=== PATIENT | female | born 1955 | race Caucasian/White ===

== ENCOUNTER 2016-07-22 04:15 | Inpatient (IN) ==
[2016-07-21 11:44] LABS: HEMATOCRIT 36.7 % (37.0-47.0); HEMOGLOBIN 11.6 g/dL (12.0-16.0); MCH 24.6 PG (27-31); MCHC 31.6 g/dL (33-37); MCV 77.9 FL (81-99); MPV 11.1 FL (7.4-10.4); RBC 4.71 XMIL (4.2-5.4)
--- NOTE | 2016-07-21 12:27 | EKG Report ---
Test Performed on : 07/21/2016 11:04:58 AM Test Reason : PAT Blood Pressure : / mmHG Vent. Rate : 061 BPM Atrial Rate : 061 BPM P-R Int : 168 ms QRS Dur : 096 ms QT Int : 418 ms P-R-T Axes : 054 052 -55 degrees QTc Int : 420 ms Normal sinus rhythm. Cannot rule out Inferior infarct (cited on or before 29-JUN-2013) Abnormal ECG When compared with ECG of 29-JUN-2013 14:59, T wave inversion now evident in Inferior leads Confirmed by Quan Alejandre MD ([id number]) on 07/22/2016 7:57:41 AM
[2016-07-21 12:28] LABS: AGAP 13; BUN 11 mg/dL (8-22); CALCIUM 10.1 mg/dL (8.8-10.2); CHLORIDE 101 mmol/L (98-107); COSMO 284; POTASSIUM 5.3 mmol/L (3.5-5.1); SODIUM 142 mmol/L (136-145); TCO2 28 mmol/L (25-35)
[2016-07-22] MEDS ORDERED: INVANZ 1 GM/NS 1 GM/50 ML IVPB ONE (05:33)
[2016-07-22] MEDS ORDERED: LR 1,000 ML ONE (05:34)
[2016-07-22] MEDS ORDERED: ENTEREG ONE (05:39)
[2016-07-22] MEDS ORDERED: SODIUM CHLORIDE 0.9% 10 ML ONE (07:04)
[2016-07-22] MEDS ORDERED: MARCAINE 0.25% PF ONE (07:04)
[2016-07-22] MEDS ORDERED: EXPAREL 1.3% ONE (07:05)
[2016-07-22 07:59] LABS: URINE MICRO REVIEW NEEDED? NO; URINE SOURCE CATH
[2016-07-22 08:05] LABS: BILIRUBIN URINE NEGATIVE (NEGATIVE); BLOOD URINE NEGATIVE (NEGATIVE); COLOR YELLOW; GLUCOSE URINE NEGATIVE (NEGATIVE); LEUKOCYTES URINE NEGATIVE (NEGATIVE); NITRITE URINE NEGATIVE (NEGATIVE); PROTEIN URINE NEGATIVE (NEGATIVE); SP GRAVITY URINE 1.007; TURBIDITY URINE CLEAR (CLEAR); UROBILINOGEN URINE NORMAL (NORMAL)
[2016-07-22 08:06] LABS: UR EPITHELIAL CELLS <10 /HPF (<10); URINE BACTERIA NEGATIVE /HPF; URINE WBC <10 /HPF (<10)
[2016-07-22] MEDS ORDERED: NS 1,000 ML ONE (10:36)
[2016-07-22] MEDS ORDERED: FENTANYL ONE (10:40)
[2016-07-22] MEDS ORDERED: VERSED ONE (10:40)
[2016-07-22] MEDS ORDERED: DIPRIVAN 1% ONE (10:40)
--- NOTE | 2016-07-22 10:51 | OPERATIVE NOTE ---
PROCEDURE DATE: 07/22/2016 DATE OF SURGERY: 07/22/2016. PROCEDURE: Total abdominal colectomy with ileal rectostomy. Intraoperative proctoscopy SURGEON: Dr. Vikas Marr. 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 POSTOPERATIVE DIAGNOSIS: Cancer of the ascending colon and cancer of the rectum (synchronous cancers). DESCRIPTION OF PROCEDURE: Satisfactory general endotracheal anesthesia was achieved. The patient was placed in Triston stirrups. The abdomen is prepped and draped in a sterile fashion. We made an incision from the mid epigastrium to the pubis in the midline. We carried our incision through the subcutaneous tissue through the midline fascia, entering the abdominal cavity carefully. Upon palpation, the lesion in the ascending colon was obvious. There was ink staining and it was palpable and there was palpable adenopathy. The lesion in the rectum could not be palpated. We started on the ascending colon and incised the white line of Toldt. We went from caudad to craniad along the right gutter and mobilized the hepatic flexure. We then went to the sigmoid and again incised the white line of Toldt on the left pelvic wall, and came from caudad to craniad. We then mobilized the splenic flexure. We proceeded to divide the omentum with LigaSure. We then began incising the mesentery from the right to the left. The ileal colic vessels were clamped, divided and suture ligated. We went to use the LigaSure in the mesentery all the way to the middle colic, then clamped and divided it, suture ligating it with a 2-0 silk suture ligature. We then continued into the mesentery using the LigaSure to the left colic and used the LigaSure on it and came all the way to the pelvis. The sigmoid vessels were clamped, divided and suture ligated. I then chose a convenient place about the level of the peritoneal reflection and probably about 10 cm in length. We stapled off the rectum and handed off the specimen. We looked at the distal colon and did not see a lesion there. So, I decided to do an intraoperative proctoscopy, and scoped the patient from below and, in fact, found the lesion at about 4-5 cm anteriorly. I scrubbed back in, grasped the staple line with Allis, and then divided the mesentery and the attachments to the rectum laterally and posteriorly and anteriorly. We used a [place] retractor to help expose as we dissected distally behind the vagina. We went down really as far as we could go to about 2 cm right to the pelvic floor. Here, we used a TA 60 blue cartridge stapled off the rectum at that point, and the rectum was handed off. I inspected it and the lesion was in fact in that specimen. We chose a 31 anvil because of the size of the rectum. I removed the staple line of the ileum. Used a spike on the anvil and placed it inside the ileum and brought it out the antimesenteric wall using the spike. I then stapled off the distal end of the ileum again, inverted that staple line with 3-0 silks. So, the anvil came out the antimesenteric wall of the ileum. The stapler was then introduced into the rectum and brought to the staple line. Obviously it was not very far in because it was right at about 2-3 cm. It apposed the staple line well. We extended the spike and then attached the anvil to the spike and then approximated these 2 portions of the stapler until the green was noted in the window. I then stapled the bowel together doing an ileal rectostomy. The staple was removed and there were 2 complete rings present. I changed gloves once again. We then checked the staple line. There were leaks on both sides, but they were coming from the staple line of the rectum and not from the anastomosis itself. We were able to place 3-0 silks in a Lembert fashion on each side in order to achieve complete air-tight anastomosis. We tested it underwater and there was absolutely no bubbling after the stitches were placed laterally on the staple line of the rectum. We were satisfied with our anastomosis. We then closed the mesentery to the sidewall of the pelvis with 3- 0 silks in a Lembert fashion. This prevented any bowel from getting down into the pelvis. We then placed a Michael drain into the pelvis bringing it out the right lower quadrant and placing it down posterior to the ileal rectostomy. Hemostasis was satisfactory. We then closed the peritoneum with a 2-0 chromic. We closed the fascia with a running #2 Prolene and irrigated out the subcutaneous tissue. We then closed the skin with genny. A sterile dressing was applied. She tolerated it well and was sent to the recovery room in satisfactory condition. cc: MD Ray Sheikh MD MTDD
[2016-07-22] MEDS ORDERED: SODIUM CHLORIDE 0.9% 30 ML ONE (10:56)
[2016-07-22] MEDS ORDERED: PHENERGAN ONE (10:56)
[2016-07-22] MEDS ORDERED: ZOFRAN ONE (10:56)
[2016-07-22] MEDS ORDERED: NEOSTIGMINE ONE (10:56)
[2016-07-22] MEDS ORDERED: EPHEDRINE ONE (10:57)
[2016-07-22] MEDS ORDERED: ROBINUL ONE (10:57)
[2016-07-22] MEDS ORDERED: NORCURON ONE (10:57)
[2016-07-22] MEDS ORDERED: LR 3,000 ML ONE (10:58)
[2016-07-22] MEDS ORDERED: XYLOCAINE-MPF 2% ONE (10:58)
[2016-07-22] MEDS: OFIRMEV 1000 MG/ISOTONIC SOLN 1,000 MG/100 ML BOTTLE IV SCH ×2 (14:09→17:37)
[2016-07-22] MEDS: DILAUDID IV PRN ×3 (14:26→22:56)
[2016-07-22] MEDS: ZOFRAN IV PRN (19:12)
[2016-07-22] MEDS: NS 1,000 ML IV SCH ×2 (21:39→21:41)
[2016-07-22] MEDS: PERIDEX MT SCH (22:56)
[2016-07-22] MEDS: LOVENOX SUBQ SCH (22:56)
[2016-07-22] MEDS: PRAVACHOL PO SCH (22:56)
[2016-07-22] MEDS: PRINIVIL PO SCH (22:56)
[2016-07-22] MEDS: LYRICA PO SCH (22:57)
[2016-07-23] MEDS: OFIRMEV 1000 MG/ISOTONIC SOLN 1,000 MG/100 ML BOTTLE IV SCH ×5 (00:24→17:55)
[2016-07-23] MEDS: DILAUDID IV PRN ×6 (03:10→22:15)
[2016-07-23] MEDS: ZOFRAN IV PRN (03:10)
[2016-07-23] MEDS: NS 1,000 ML IV SCH ×3 (05:09→22:13)
[2016-07-23 05:25] LABS: HEMATOCRIT 30.1 % (37.0-47.0); HEMOGLOBIN 9.3 g/dL (12.0-16.0); MCH 24.4 PG (27-31); MCHC 30.9 g/dL (33-37); MPV 10.9 FL (7.4-10.4); RBC 3.81 XMIL (4.2-5.4)
[2016-07-23 05:42] LABS: AGAP 12; BUN 7 mg/dL (8-22); CALCIUM 8.5 mg/dL (8.8-10.2); CHLORIDE 101 mmol/L (98-107); COSMO 277; SODIUM 139 mmol/L (136-145); TCO2 26 mmol/L (25-35)
[2016-07-23] MEDS: ISMO PO SCH (09:12)
[2016-07-23] MEDS: CELEXA PO SCH (09:13)
[2016-07-23] MEDS: NEXIUM PO SCH (09:13)
[2016-07-23] MEDS: GLUCOPHAGE PO SCH (09:13)
[2016-07-23] MEDS: ENTEREG PO SCH ×2 (09:13→22:14)
[2016-07-23] MEDS: PERIDEX MT SCH ×2 (09:14→22:14)
[2016-07-23] MEDS: PRINIVIL PO SCH ×2 (09:14→22:14)
[2016-07-23] MEDS: CARDIZEM CD PO SCH (09:14)
[2016-07-23] MEDS: LYRICA PO SCH ×2 (09:41→22:15)
[2016-07-23] MEDS: VALIUM PO SCH (09:41)
[2016-07-23] MEDS: LOVENOX SUBQ SCH (22:14)
[2016-07-23] MEDS: PRAVACHOL PO SCH (22:14)
[2016-07-24] MEDS: OFIRMEV 1000 MG/ISOTONIC SOLN 1,000 MG/100 ML BOTTLE IV SCH ×5 (00:49→19:31)
[2016-07-24] MEDS: DILAUDID IV PRN ×7 (05:15→23:09)
[2016-07-24 05:19] LABS: MANUAL DIFF NEEDED? NO
[2016-07-24 05:29] LABS: BASO% 0.4 % (0.0-0.8); EOS# 0.12 X1000 (0.0-0.7); HEMATOCRIT 29.8 % (37.0-47.0); HEMOGLOBIN 9.2 g/dL (12.0-16.0); IMM GRAN# 0.02 X1000 (0.0-0.04); IMM GRAN% 0.2 % (0.0-0.5); LYMPH% 28.6 % (20.5-51.1); MCH 24.3 PG (27-31); MCHC 30.9 g/dL (33-37); MCV 78.6 FL (81-99); MONO# 0.87 X1000 (0.11-0.59); MONO% 7.5 % (1.7-9.3); MPV 11.4 FL (7.4-10.4); NEUT% 62.3 % (42.2-75.2); PLT 210 X1000 (130-400); RBC 3.79 XMIL (4.2-5.4)
[2016-07-24 05:50] LABS: AGAP 14; BUN 5 mg/dL (8-22); CALCIUM 9.1 mg/dL (8.8-10.2); CHLORIDE 100 mmol/L (98-107); COSMO 274; POTASSIUM 3.5 mmol/L (3.5-5.1); SODIUM 139 mmol/L (136-145); TCO2 25 mmol/L (25-35)
[2016-07-24] MEDS: NS 1,000 ML IV SCH (08:48)
[2016-07-24] MEDS: PRINIVIL PO SCH ×2 (08:49→23:10)
[2016-07-24] MEDS: ISMO PO SCH (08:49)
[2016-07-24] MEDS: NEXIUM PO SCH (08:49)
[2016-07-24] MEDS: PERIDEX MT SCH ×2 (08:49→23:11)
[2016-07-24] MEDS: LYRICA PO SCH ×2 (08:50→23:11)
[2016-07-24] MEDS: CELEXA PO SCH (08:50)
[2016-07-24] MEDS: CARDIZEM CD PO SCH (08:51)
[2016-07-24] MEDS: GLUCOPHAGE PO SCH (08:51)
[2016-07-24] MEDS: VALIUM PO SCH (08:51)
[2016-07-24] MEDS: ENTEREG PO SCH ×2 (08:51→23:10)
[2016-07-24] MEDS: ZOFRAN IV PRN (23:09)
[2016-07-24] MEDS: LOVENOX SUBQ SCH (23:09)
[2016-07-24] MEDS: PRAVACHOL PO SCH (23:10)
[2016-07-25] MEDS: OFIRMEV 1000 MG/ISOTONIC SOLN 1,000 MG/100 ML BOTTLE IV SCH ×4 (01:19→18:50)
[2016-07-25] MEDS: NS 1,000 ML IV SCH ×2 (02:57→22:23)
[2016-07-25] MEDS: DILAUDID IV PRN ×5 (04:25→20:19)
[2016-07-25] MEDS: ZOFRAN IV PRN ×2 (04:25→12:07)
[2016-07-25 05:30] LABS: MANUAL DIFF NEEDED? NO
[2016-07-25 05:35] LABS: BASO% 0.3 % (0.0-0.8); EOS# 0.07 X1000 (0.0-0.7); EOS% 0.6 % (0.0-10.0); HEMATOCRIT 30.8 % (37.0-47.0); HEMOGLOBIN 9.7 g/dL (12.0-16.0); IMM GRAN# 0.04 X1000 (0.0-0.04); IMM GRAN% 0.3 % (0.0-0.5); LYMPH# 1.95 X1000 (1.2-3.4); LYMPH% 16.3 % (20.5-51.1); MCH 24.5 PG (27-31); MCHC 31.5 g/dL (33-37); MCV 77.8 FL (81-99); MONO# 0.87 X1000 (0.11-0.59); MONO% 7.3 % (1.7-9.3); MPV 10.7 FL (7.4-10.4); NEUT% 75.2 % (42.2-75.2); PLT 215 X1000 (130-400); RBC 3.96 XMIL (4.2-5.4)
--- NOTE | 2016-07-25 08:32 | PROGRESS NOTE ---
DATE: 07/25/2016 SUBJECTIVE: Ms. Valerie Whitney is postoperative day 3 from a total abdominal colectomy per Dr. Marr for synchronous colon cancers. This morning she is awake, cooperative. Her abdomen is soft. She has had liquid bowel movements. She is incontinent. OBJECTIVE: Vital Signs: Her heart rate is 80, blood pressure 127/63, and O2 saturation 95%. Her urine output is adequate. Abdomen: She does have a SINGH drain in, which is draining serosanguineous fluid. Her midline wound is dressed. DIAGNOSTIC DATA: Her white blood cell count is 12. She is not on antibiotics. Her hematocrit is 31%. Serum glucoses are within normal limits. PLAN: Continue her clear liquid diet. Increase her activity. Her pain is well controlled. Leave her Michael drain for now. cc: MD Vikas Ortega MD
[2016-07-25] MEDS: CELEXA PO SCH (08:39)
[2016-07-25] MEDS: ENTEREG PO SCH ×2 (08:39→20:18)
[2016-07-25] MEDS: NEXIUM PO SCH (08:40)
[2016-07-25] MEDS: LYRICA PO SCH ×2 (08:40→20:18)
[2016-07-25] MEDS: GLUCOPHAGE PO SCH (08:40)
[2016-07-25] MEDS: PRINIVIL PO SCH ×2 (08:40→20:19)
[2016-07-25] MEDS: VALIUM PO SCH (08:40)
[2016-07-25] MEDS: ISMO PO SCH (08:40)
[2016-07-25] MEDS: CARDIZEM CD PO SCH (08:41)
[2016-07-25] MEDS: PERIDEX MT SCH ×2 (08:43→20:28)
[2016-07-25] MEDS: ULTRAM PO PRN ×2 (12:07→22:24)
[2016-07-25] MEDS: LOVENOX SUBQ SCH (20:18)
[2016-07-25] MEDS: PRAVACHOL PO SCH (20:18)
[2016-07-26] MEDS: OFIRMEV 1000 MG/ISOTONIC SOLN 1,000 MG/100 ML BOTTLE IV SCH ×5 (00:25→23:31)
[2016-07-26] MEDS: NS 1,000 ML IV SCH ×3 (02:18→16:15)
[2016-07-26] MEDS: ZOFRAN IV PRN ×2 (05:26→12:35)
[2016-07-26] MEDS: DILAUDID IV PRN ×5 (05:26→23:31)
[2016-07-26] MEDS: CELEXA PO SCH (08:00)
[2016-07-26] MEDS: ISMO PO SCH (08:00)
[2016-07-26] MEDS: CARDIZEM CD PO SCH (08:00)
[2016-07-26] MEDS: LYRICA PO SCH ×3 (08:00→21:31)
[2016-07-26] MEDS: ENTEREG PO SCH ×3 (08:00→21:30)
[2016-07-26] MEDS: PERIDEX MT SCH ×3 (08:01→21:31)
[2016-07-26] MEDS: PRINIVIL PO SCH ×2 (08:01→21:30)
[2016-07-26] MEDS: VALIUM PO SCH (08:01)
[2016-07-26] MEDS: NEXIUM PO SCH (08:01)
[2016-07-26] MEDS: GLUCOPHAGE PO SCH (08:01)
[2016-07-26] MEDS: ULTRAM PO PRN ×2 (08:21→14:48)
[2016-07-26] MEDS: PRAVACHOL PO SCH ×2 (19:30→21:30)
[2016-07-26] MEDS: LOVENOX SUBQ SCH ×2 (19:31→21:31)
[2016-07-27] MEDS: NS 1,000 ML IV SCH ×2 (01:34→10:24)
[2016-07-27] MEDS: OFIRMEV 1000 MG/ISOTONIC SOLN 1,000 MG/100 ML BOTTLE IV SCH ×4 (05:52→23:47)
[2016-07-27] MEDS: DILAUDID IV PRN ×3 (06:00→21:10)
[2016-07-27] MEDS: ENTEREG PO SCH ×2 (07:49→10:23)
[2016-07-27] MEDS: GLUCOPHAGE PO SCH (07:49)
[2016-07-27] MEDS: ISMO PO SCH ×2 (07:50→10:23)
[2016-07-27] MEDS: PERIDEX MT SCH ×3 (07:50→21:11)
[2016-07-27] MEDS: LYRICA PO SCH ×3 (07:50→21:11)
[2016-07-27] MEDS: NEXIUM PO SCH ×2 (07:50→10:22)
[2016-07-27] MEDS: VALIUM PO SCH ×2 (07:50→10:22)
[2016-07-27] MEDS: CARDIZEM CD PO SCH ×2 (07:51→10:22)
[2016-07-27] MEDS: CELEXA PO SCH ×2 (07:51→10:23)
[2016-07-27] MEDS: PRINIVIL PO SCH ×3 (07:51→23:42)
[2016-07-27] MEDS: ULTRAM PO PRN ×3 (10:24→23:49)
[2016-07-27] MEDS ORDERED: NS 1,000 ML IV SCH (11:22)
--- NOTE | 2016-07-27 12:32 | Diag Imaging Result Doc PS360 ---
EXAM: FLAT/UPRIGHT ABD/1 VIEW CHEST HISTORY: post colon resection TECHNIQUE: Three views COMPARISON: 09/25/2014 FINDINGS: The lungs are well expanded. No cardiomegaly. No pneumonia. No free air beneath the diaphragm. There are multiple midline skin genny. There is a drain overlying the pelvis and there are sutures in the pelvis. There are multiple air distended loops of small bowel air-fluid levels. No organomegaly. IMPRESSION: Ileus versus obstruction. Follow-up films recommended. Electronically signed by Roly Childers 07/27/2016 12:30 PM
[2016-07-27] MEDS: ZOFRAN IV PRN (16:27)
[2016-07-27] MEDS: PRAVACHOL PO SCH (21:11)
[2016-07-27] MEDS: LOVENOX SUBQ SCH (21:11)
[2016-07-28] MEDS: DILAUDID IV PRN (01:55)
[2016-07-28 05:24] LABS: MANUAL DIFF NEEDED? NO
[2016-07-28] MEDS: OFIRMEV 1000 MG/ISOTONIC SOLN 1,000 MG/100 ML BOTTLE IV SCH (05:28)
[2016-07-28 05:31] LABS: BASO% 0.3 % (0.0-0.8); EOS# 0.17 X1000 (0.0-0.7); EOS% 2.2 % (0.0-10.0); HEMATOCRIT 28.5 % (37.0-47.0); HEMOGLOBIN 9.1 g/dL (12.0-16.0); LYMPH# 1.97 X1000 (1.2-3.4); LYMPH% 25.9 % (20.5-51.1); MCH 24.6 PG (27-31); MCHC 31.9 g/dL (33-37); MONO# 1.08 X1000 (0.11-0.59); MONO% 14.2 % (1.7-9.3); MPV 10.8 FL (7.4-10.4); NEUT% 57.4 % (42.2-75.2); PLT 248 X1000 (130-400)
[2016-07-28 07:51] VITALS: BP 123/60
[2016-07-28] MEDS: CARDIZEM CD PO SCH (08:36)
[2016-07-28] MEDS: PERIDEX MT SCH (08:36)
[2016-07-28] MEDS: CELEXA PO SCH (08:37)
[2016-07-28] MEDS: LYRICA PO SCH (08:37)
[2016-07-28] MEDS: ISMO PO SCH (08:37)
[2016-07-28] MEDS: VALIUM PO SCH (08:37)
[2016-07-28] MEDS: NEXIUM PO SCH (08:37)
[2016-07-28] MEDS: PRINIVIL PO SCH (08:37)
[2016-07-28] MEDS: GLUCOPHAGE PO SCH (08:37)
[2016-07-28] MEDS: ULTRAM PO PRN (08:45)
--- NOTE | 2016-08-03 13:19 | DISCHARGE SUMMARY ---
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 PRIMARY PROCEDURE: Total abdominal colectomy with an ileorectostomy. HOSPITAL COURSE: This 60-year-old was sent by Dr. Soto, with synchronous cancers in her colon. We discussed her options for treatment. She was admitted on the after an outpatient prep. She underwent the surgery noted on 07/22/2016. Postoperatively she did quite well. We started her on clear liquids on the 2nd postop day. We removed her Schwartz. We advanced her diet subsequently. We removed her drain on the 6th postoperative day. It was felt she could be discharged home on that day. Her temp was 99.2 degrees. She was taking solid food. Her bowels were loose as expected. Her wound was fine. She will return to the office in 1 week for re-evaluation. The pathology revealed the cecal cancer to be extending through the muscularis into the surrounding tissue. There were 8 of 27 nodes positive so this made it a T3 N2. The rectal lesion was 1.1 cm extended into the muscle but not through into the subcutaneous tissue. One lymph node out of 5 was positive so it was a T2 N1. She will need subsequent therapy. DISPOSITION: That she was discharged in good condition to return to the office in a week. cc: MD Ray Sheikh MD
== END 2016-07-28 10:35 | disposition home or self-care (01) ==
LOC: SURHOLD 04:15 → 4N 12:16
PROVIDERS: ADMIT Surgery; ATTEND Surgery

== ENCOUNTER 2016-08-05 14:59 | Inpatient (IN) ==
[2016-08-05] MEDS ORDERED: NS 1,000 ML IV ONE (15:22)
[2016-08-05] MEDS ORDERED: ZOFRAN IV ONE (15:22)
[2016-08-05] MEDS ORDERED: MORPHINE IV ONE (15:47)
[2016-08-05 16:23] LABS: MANUAL DIFF NEEDED? NO
[2016-08-05 16:29] LABS: URINE MICRO REVIEW NEEDED? NO; URINE SOURCE CLEAN CATCH
[2016-08-05 16:39] LABS: BASO% 0.4 % (0.0-0.8); EOS# 0.44 X1000 (0.0-0.7); EOS% 4.1 % (0.0-10.0); HEMATOCRIT 28.7 % (37.0-47.0); HEMOGLOBIN 8.9 g/dL (12.0-16.0); IMM GRAN# 0.06 X1000 (0.0-0.04); IMM GRAN% 0.6 % (0.0-0.5); LYMPH# 2.68 X1000 (1.2-3.4); LYMPH% 25.3 % (20.5-51.1); MCH 23.9 PG (27-31); MCV 77.2 FL (81-99); MONO# 1.19 X1000 (0.11-0.59); MONO% 11.2 % (1.7-9.3); MPV 10.2 FL (7.4-10.4); NEUT% 58.4 % (42.2-75.2); PLT 478 X1000 (130-400); RBC 3.72 XMIL (4.2-5.4)
[2016-08-05 16:40] LABS: UR EPITHELIAL CELLS >10 /HPF (<10); URINE BACTERIA 2+ /HPF; URINE RBC <10 /HPF (<10); URINE WBC <10 /HPF (<10)
[2016-08-05 16:48] LABS: BILIRUBIN URINE SMALL (NEGATIVE); BLOOD URINE NEGATIVE (NEGATIVE); COLOR YELLOW; GLUCOSE URINE NEGATIVE (NEGATIVE); LEUKOCYTES URINE TRACE (NEGATIVE); NITRITE URINE NEGATIVE (NEGATIVE); PH URINE 5.5; PROTEIN URINE 30 mg/dL (NEGATIVE); SP GRAVITY URINE 1.023; TURBIDITY URINE HAZY (CLEAR); URINE CULTURE NEEDED? YES; UROBILINOGEN URINE 3 mg/dL (NORMAL)
--- NOTE | 2016-08-05 16:53 | Diag Imaging Result Doc PS360 ---
EXAM: CT ABD/PELVIS ORAL CONTR ONLY HISTORY: Abd pain, post op TECHNIQUE: COMPARISON: 06/29/2016 FINDINGS: Normal spleen and adrenal glands. Normal noncontrasted pancreas and liver. The gallbladder is contracted. Moderate atherosclerosis. No aneurysmal dilatation to the aorta. No renal stones. No hydronephrosis. Mildly distended bowel loops. No free air. No abscess. The urinary bladder is only mildly distended. There is free fluid in the pelvis. The uterus is been removed. IMPRESSION: Findings likely represent an ileus although there could be a partial obstruction or even enteritis. No abscess or free air. Electronically signed by Roly Childers 08/05/2016 4:50 PM
[2016-08-05 16:59] LABS: ALBUMIN 3.4 g/dL (3.5-5.0); CALCIUM 9.4 mg/dL (8.8-10.2); POTASSIUM 4.1 mmol/L (3.5-5.1); TOTAL BILIRUBIN 0.17 mg/dL (0.20-1.00); TOTAL PROTEIN 6.5 g/dL (6.3-8.3)
[2016-08-05] MEDS ORDERED: MAGNESIUM SULFATE 2 GM/S.W.I. 2 GM/50 ML IVPB IV ONE (17:04)
--- NOTE | 2016-08-05 17:22 | PROVIDER DOCUMENTATION ---
This chart was entered by Erlinda Salazar Scribe, acting as scribe for Jarod Loza MD. HPI-General Adult - General Chief Complaint: Abnormal Lab[s] Stated Complaint: SENT BY DR ARMENTA FOR FLUIDS Time Seen by Provider: 08/05/16 15:21 Source: patient Allergies/Adverse Reactions: Patient Allergies Allergy/AdvReac Type Severity Reaction Status Date / Time Sulfa (Sulfonamide Allergy Mild HIVES Verified 07/21/16 10:30 Antibiotics) azithromycin Allergy SYNCOPE Verified 07/21/16 10:30 [From Zithromax Z-Noel] cetirizine HCl * Allergy SYNCOPE Verified 07/21/16 10:30 [From Zyrtec] fluticasone propionate * Allergy SYNCOPE Verified 07/21/16 10:30 [From Flonase] codeine AdvReac Mild NAUSEA Verified 07/21/16 10:30 steroids Allergy Unknown Uncoded 07/21/16 10:30 Home Medications: Home Medication List Medication Instructions Recorded Confirmed Last Taken Type LISINOpril [Prinivil] 20 mg PO BID 11/22/12 07/22/16 07/21/16 08:00 History Metformin [Glucophage] 500 mg PO WBREAKFAST 11/22/12 07/22/16 07/08/16 History Isosorbide Mononitrate [Ismo] 30 mg PO DAILY 06/29/13 07/22/16 07/08/16 History PRAVAstatin [Pravachol] 20 mg PO QHS 06/29/13 07/22/16 07/08/16 History Prasugrel [Effient] 10 mg PO DAILY 06/29/13 07/21/16 06/30/16 History Pregabalin [Lyrica] 150 mg PO BID 06/29/13 07/22/16 07/21/16 08:00 History Esomeprazole [Nexium] 40 mg PO DAILY 08/24/13 07/22/16 07/22/16 04:00 History Citalopram [Celexa] 40 mg PO DAILY 06/21/16 07/22/16 07/22/16 04:00 History Diazepam 5 mg PO DAILY 06/21/16 07/22/16 07/22/16 04:00 History Diltiazem HCl [Cartia Xt] 180 mg PO DAILY 06/21/16 07/22/1607/21/17 08:00 History Promethazine [Phenergan] 25 mg PO Q6H PRN PRN 06/21/16 07/22/16 07/21/16 22:00 History Hydrocodone/Acetaminophen [[place] 1 each PO PRN PRN #14 tablet 07/28/16 Unknown Rx 10-325 Tablet] - History of Present Illness -Gen Adult Nature of Presenting Problems: 60 yo F presents to the ER by Dr. Armenta for abnormal kidney function labs, diarrhea, and increase abdominal pain. Pt had a complete colon resection x15 days ago. States yesterday she had an xray done which showed an obstruction, was scheduled for CT on Monday but daughter is requesting it to be done today since they are already here. States she had stage 3 colon cancer on both sides of colon and rectum, also in 8 lymph nodes. Denies any rectal bleeding. Associated Symptoms: reports: diarrhea. denies: chest pain, fatigue, nausea, vomiting Review of Systems - Adult - REVIEW OF SYSTEMS - ADULT Constitutional: denies: chills, fever Eyes: reports: no symptoms reported Ears, Nose, Mouth & Throat: reports: no symptoms reported Cardiovascular: denies: chest pain, palpitations Respiratory: denies: cough, shortness of breath Gastrointestinal: reports: diarrhea. denies: abdominal pain, nausea, rectal bleeding, vomiting Genitourinary: denies: dysuria, flank pain Musculoskeletal: reports: no symptoms reported Integumentary: reports: no symptoms reported Neurological: reports: no symptoms reported Psychiatric: reports: no symptoms reported Endocrine: reports: no symptoms reported Hematologic/Lymphatic: reports: no symptoms reported Allergic/Immunologic: reports: no symptoms reported All Other Systems: Reviewed and Negative Past History - Adult - PAST MEDICAL HISTORY-ADULT Review of Records: reports: Nursing Assessment Review, Medications Reviewed Cardiovascular: reports: cardiac disease, CAD, HTN Respiratory: reports: COPD Gastrointestinal: reports: cancer Neurological: reports: other (hx of syncope) Endocrine/Immune: reports: Diabetes - PRIOR SURGERIES/PROCEDURES Surgical/Procedure History: reports: recent surgery (colon resection), colonoscopy, cardiac stent, other (total colon resection) - IMMUNIZATION STATUS Childhood Immunizations: See Nurse Assessment Flu Vaccine: See Nurse Assessment Physical Exam-General - PHYSICAL EXAM-ADULT Initial Vital Signs Reviewed: Yes - CONSTITUTIONAL General Appearance: alert, no apparent distress - EYES Eyes: PERRL/EOMI, pink conjunctivae - HEAD, EARS, NOSE, MOUTH & THROAT HENMT: normocephalic/atraumatic, normal ENT inspection - NECK Neck: supple, normal inspection - RESPIRATORY Respiratory: no respiratory distress, no accessory muscle use - CARDIOVASCULAR Cardiovascular: normal peripheral pulses, regular rate, rhythm - GASTROINTESTINAL (ABDOMEN) Abdominal Exam: normal bowel sounds, soft, tenderness (generalized), other ( surgical scar from exploratory abdominal surgery, no signs of infection, healing well) - MUSCULOSKELETAL Back Exam: no CVA tenderness, no vertebral tenderness Extremity: normal gait, normal inspection - SKIN Integumentary: normal color, warm/dry - NEUROLOGIC Neurologic: grossly normal, no motor/sensory deficits - PSYCHIATRIC Psych/Mental Status: normal mood/affect, normal thought content, normal thought process, oriented x 3 Progress - PLAN OF CARE/RESULTS Progress/Plan/Lab Results: Vital Signs - 8 hr 08/05/16 15:11 Temperature 98.6 F Pulse Rate 96 H Respiratory Rate 18 Blood Pressure 94/51 O2 Sat by Pulse Oximetry 99 Orders Category Date Time Status Saline Loc DIRECTED Care 08/05/16 15:22 Active NPO Diet 08/05/16 15:22 Active AMYLASE [CHEM] Stat Lab 08/05/16 15:22 Uncollected CBC WITH ELECTRONIC DIFF [HEME] Stat Lab 08/05/16 15:22 Uncollected COMPREHENSIVE METABOLIC PANEL [CHEM] Stat Lab 08/05/16 15:22 Uncollected LIPASE [CHEM] Stat Lab 08/05/16 15:22 Uncollected MAGNESIUM [CHEM] Stat Lab 08/05/16 15:22 Uncollected URINALYSIS W/POSS RFLX CULT-1 [URINALYSIS] Stat Lab 08/05/16 15:22 Uncollected 0.9% Sodium Chloride Inj [Ns] 1,000 ml Med 08/05/16 15:22 Active IV 999 mls/hr Ondansetron [Zofran] Med 08/05/16 15:22 Discontinued 4 mg IV NOW ONE Result Diagrams: 08/05/16 15:35 08/05/16 15:35 - CT/MRI 1 CT Study: Abdomen, Pelvis Impression: Abnormal (findings likely represents an ileus although there could be a partial obstruction or even enteritis, no abscess or free air. Per radiologist) - CONSULTS/PCP/HOSPITALIST Notification #1 *Consult/PCP/Hospitalist*: Hospitalist Time Discussed: 17:21 Consult Disposition: Admit Departure - Departure Date of Disposition Decision: 08/05/16 Time of Disposition Decision: 17:21 DIAGNOSIS: Partial small bowel obstruction, Hypomagnesemia, Renal insufficiency Disposition: ADMITTED INPATIENT Certified Medical Emergency: Emergent Condition: Stable Referrals and Follow-Ups: Marian Ziegler CRNP [Primary Care Provider] - - Critical Care Note This patient required my direct & personal management of CC.: No This chart was documented by the indicated scribe, (Erlinda Salazar Scribe) and accurately reflects the services I performed and decisions made by me, Jarod Loza MD, as attested by the provider's signature.
[2016-08-05] MEDS ORDERED: ZOFRAN IV PRN (19:35)
[2016-08-05] MEDS ORDERED: APRESOLINE IV PRN (19:35)
[2016-08-05] MEDS: DILAUDID IV PRN ×2 (20:14→23:21)
--- NOTE | 2016-08-05 20:20 | HISTORY AND PHYSICAL ---
PRIMARY CARE PROVIDER: URI Pearl. PRIMARY ONCOLOGIST: Aroldo Alford MD. RECENT SURGEON: Vikas Marr MD. CHIEF COMPLAINT: Abdominal pain with diarrhea. HISTORY OF PRESENT ILLNESS: Ms. Valerie Whitney is a 60-year-old female with a medical history of recent diagnosis of colonic adenocarcinoma with positive lymph nodes, who recently had a total abdominal colectomy with ileorectostomy by Dr. Marr on 07/22/2016. She states that she has had diarrhea ever since and that she has had nausea for years. Over the last 4 days she has had decreased appetite with increasing abdominal pain and rectal pain. She had a follow-up appointment with Dr. Marr yesterday evening and had her brittni removed. Given her symptoms he suspected small-bowel obstruction and ordered her to have an abdominal CT that was scheduled for Monday. Today she had an appointment with Dr. Alford who found her creatinine to be elevated and sent her here for IV fluids. When evaluated by the ER physician it was noted that she was going to have a CT on Monday for possible small bowel obstruction. So she went ahead and went for her CT. Results revealed ileus versus partial small-bowel obstruction versus enteritis. There is no abscess or free air. Her white count is normal at 10,000. She does have a low hemoglobin and hematocrit. BUN and creatinine of 25 and 2.0. She has a normal baseline of anywhere from 0.6-0.8 creatinine over the last 3 years. Given her frequent spells of diarrhea she has also had a lobe magnesium level of 1.0 for which she received magnesium supplementation via IV. Her potassium is stable. She will receive IV fluid, hydration to help improve her kidney function and secondary to being NPO due to possible partial small-bowel obstruction. We will consult General Surgery to evaluate and will consult Dr. Alford to follow. PAST MEDICAL HISTORY: Hypomagnesemia, asthma, COPD, no home oxygen. RECENT DIAGNOSIS: 1. 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 2. Diabetes mellitus type 2. 3. Hypertension. 4. Fibromyalgia. 5. Hyperlipidemia, 6. Coronary artery disease. 7. Congestive heart failure per her report but the last echocardiogram in 2013 shows a normal LV systolic function with an ejection fraction of 65-70 and a normal diastolic function. PAST SURGICAL HISTORY: Total abdominal colectomy with ileorectostomy on 07/22/2016. She had a colonoscopy on 06/23/2016 which was when she was diagnosed with the colonic adenocarcinoma. Hysterectomy, right foot surgery, vocal cord biopsy, cardiac stents x2 in 2012. SOCIAL HISTORY: She only smoked 2-3 cigarettes per day up until a couple of months ago. It used to be 2 packs per day that started at the age of 18 or 19 years old. Denies alcohol or illicit drug use. FAMILY HISTORY: Grandmother with diabetes. Father with breast cancer. Mother had congestive heart failure. Sister had lung cancer. Son has kidney issues, actually has 1 kidney. REVIEW OF SYSTEMS: A 14 point review of systems were complete and all were negative except those mentioned above in HPI. ALLERGIES: Sulfa antibiotics, azithromycin, Zyrtec, Flonase, codeine, steroids. HOME MEDICATIONS: Home medications not verified, but it looks like she has listed Phenergan, Lyrica, Effient, Pravachol, Glucophage, lisinopril, isosorbide mononitrate, [place] 10, Nexium, diltiazem, diazepam, Celexa. PHYSICAL EXAMINATION: VITAL SIGNS: Temperature 98.6 degrees, heart rate 87, respiratory rate 18, blood pressure 121/72, O2 saturation 97% on room air. She is 5 feet 2 inches tall, pounds. BMI 21.8. GENERAL: Ms. Valerie Whitney is a 60-year-old female. She is in no acute distress. Able to answer questions appropriately. HEENT: Atraumatic, normocephalic. Pupils equal, round, reactive to light. Extraocular movements intact. NECK: No JVD or carotid bruits noted. CARDIOVASCULAR: S1, S2. Regular rate and rhythm. No rubs, gallops, murmurs. PULMONARY: Clear to auscultation. Bilateral breath sounds. No accessory muscle use or work of breathing noted GASTROINTESTINAL: Midline abdominal incision healing. Brittni have been removed since yesterday, well-approximated. Abdomen is soft. Mild tenderness in all 4 quadrants. Positive bowel sounds x4, hypoactive. EXTREMITIES: No edema noted. +2 dorsalis and radial pulses. SKIN: Warm, dry, intact. Midline abdominal incision is well-approximated and healing. NEUROLOGIC: A and O x4. Moves all extremities equally. LABORATORY DATA: White blood cells 10,000, hemoglobin 8.9, hematocrit 28.7, platelet count 478,000. Sodium 134, potassium 4.1, BUN 25, creatinine 2.0. Glucose 107, calcium 9.4, magnesium 1.0, total bilirubin 0.17, AST 15, ALT 10. Urinalysis: 30 protein, trace ketones, small bilirubin, trace leukocytes, 2+ bacteria. IMAGING: Abdominopelvic CT: Ileus versus partial bowel obstruction versus enteritis. No abscess or free air. ASSESSMENT AND PLAN: 1. Abdominal pain. There is a possible partial small bowel obstruction per CT. We will consult General Surgery to evaluate as she has had recent total abdominal colectomy. We will keep her NPO for now and do IV fluid hydration. Other differentials for abdominal pain is possible ileus or enteritis. We will send for C. difficile. She does state that the stool has a different smell than it usually does, it is very loose consistency with frequent stools throughout the day which she states has been since surgery. 2. Colonic adenocarcinoma with lymph node involvement of the ascending colon and rectum, now status post total abdominal colectomy with ileorectostomy, being followed by Dr. Alford for her colon cancer. Currently holding on chemo until fully healed from surgery and for kidney dysfunction to improve. We will reconsult Dr. Alford. 3. Hypomagnesemia. Magnesium level is 1.0. Looking at her history she does run low on her magnesium levels. She received 2 g of IV magnesium in the ER. We will recheck in the morning. 4. Hypertension. Currently stable, PO medications being held. 5. Diabetes mellitus type 2. Pattern blood glucoses and sliding scale insulin. Watch closely as she is NPO. 6. Hyperlipidemia. Holding PO medications for now. 7. Coronary artery disease. Holding PO medications for now. She is status post 2 cardiac stents in 2012. 8. Abdominal pain and fibromyalgia pain. She is NPO so we will do Dilaudid 0.5 IV q.3 hours p.r.n. 9. Tobacco abuse. Cessation discussed. 10. Deep venous thrombosis prophylaxis. Lovenox. 11. Gastrointestinal prophylaxis. Proton pump inhibitor. 12. Anemia. Hemoglobin and hematocrit 8.9 and 28.7. Her MCV is 77.2. We will add anemia labs to AM lab draw. Dictated by URI Tolbert for Antonio Velez MD cc: URI Tolbert MD Naveen T. Lobo, MD Robert C. Walker, MD Lori Henry, CRNP
[2016-08-05] MEDS: PROTONIX IV SCH (22:41)
[2016-08-05] MEDS: LOVENOX SUBQ SCH (22:41)
[2016-08-05] MEDS: NS 1,000 ML IV SCH (22:41)
[2016-08-05] MEDS: HUMULIN R SUBQ SCH (22:42)
[2016-08-06 01:43] LABS: UR CREAT RANDOM 65.2 mg/dL (11-20)
[2016-08-06 05:13] LABS: MANUAL DIFF NEEDED? NO
[2016-08-06 05:22] LABS: BASO% 1.1 % (0.0-0.8); EOS# 0.61 X1000 (0.0-0.7); EOS% 8.6 % (0.0-10.0); IMM GRAN# 0.04 X1000 (0.0-0.04); IMM GRAN% 0.6 % (0.0-0.5); MCHC 30.8 g/dL (33-37); MCV 77.8 FL (81-99); MONO# 0.84 X1000 (0.11-0.59); MONO% 11.8 % (1.7-9.3); NEUT% 39.9 % (42.2-75.2); PLT 397 X1000 (130-400); RBC 3.34 XMIL (4.2-5.4)
[2016-08-06 05:36] LABS: AGAP 12; BUN 14 mg/dL (8-22); CALCIUM 8.6 mg/dL (8.8-10.2); CHLORIDE 103 mmol/L (98-107); COSMO 281; IRON SATURATION 7 %; MAGNESIUM 1.5 mg/dL (1.5-2.7); POTASSIUM 3.6 mmol/L (3.5-5.1); SODIUM 141 mmol/L (136-145); TCO2 26 mmol/L (25-35); TIBC 229 ug/dL; TOTAL IRON 17 ug/dL (49-151); UNBOUND IRON 212 ug/dL (112-346)
[2016-08-06 06:07] LABS: FERRITIN 41 ng/mL (13-150)
[2016-08-06] MEDS: HUMULIN R SUBQ SCH ×4 (06:54→22:59)
[2016-08-06] MEDS: NS 1,000 ML IV SCH ×3 (06:54→20:55)
--- NOTE | 2016-08-06 06:58 | CONSULTATION ---
DATE OF CONSULTATION: 08/06/2016 REQUESTING PHYSICIAN: The hospitalist service concerning potential ileus. HISTORY OF PRESENT ILLNESS: This is a 60-year-old female, well known to my group, who had a recent colectomy with ileorectal anastomosis by Dr. Marr on 07/22/2016. She has had diarrhea ever since and had some nausea. She had decreased appetite and abdominal pain and rectal pain. She had seen Dr. Marr in his office 2 days ago and genny were removed. At that time, he had a x-ray done that did not show any acute problem but had a potential for an ileus. He had her scheduled for an outpatient CT scan for Monday. She is all Dr. Alford in his office and had an elevated creatinine and sent her in for IV fluids. During that time, she did have her repeat CT scan in the emergency department that showed ileus versus partial small-bowel obstruction. She has subsequently been feeling better since she has been admitted to the hospital. She has had 2 bowel movements recorded. She denies any kind of nausea. Overall, she is doing relatively well. PAST MEDICAL HISTORY: Hypomagnesemia, asthma, COPD. PAST SURGICAL HISTORY: Includes total abdominal colectomy, colonoscopy, hysterectomy, right foot surgery, vocal cord biopsy, and cardiac stents. SOCIAL HISTORY: Former smoker. Denies alcohol, tobacco or illicit drugs. FAMILY HISTORY: Positive for diabetes, breast cancer, congestive heart failure, lung cancer. ALLERGIES: Sulfa, azithromycin, Zyrtec, Flonase, codeine, steroids. HOME MEDICATIONS: Reviewed. REVIEW OF SYSTEMS: A full 10-point review of systems obtained, negative as specified in HPI. PHYSICAL EXAMINATION: Vital Signs: The patient is currently afebrile. Her vital signs have been stable. General: No acute distress. HEENT: Normocephalic, atraumatic. Pupils equal, round, reactive to light. Mucous membranes moist. Oropharynx benign. Neck: Supple. Trachea midline. Cardiovascular: Regular rate and rhythm. Lungs: Grossly clear. Abdomen: Soft, nondistended at this time. Incision is well healed. I did not appreciate any significant abdominal tenderness at this time. Bowel sounds auscultated. Extremities: Moves all extremities. Neurologic: Grossly intact. Skin: No signs of jaundice. Vascular: All extremities perfused. LABORATORY: White blood cell count is 7, hematocrit is 26, platelet count 397,000. On remainder of labs, it should be noted that her creatinine is 0.8 which is down from 2.0. Magnesium 1.5. CT scan independently reviewed and radiology report reviewed and noted above. ASSESSMENT/PLAN: A 60-year-old female, status post total abdominal colectomy for colon cancer, now presenting with abdominal pain. 1. Abdominal pain. At this time. Her CT scan shows potential for an ileus. She is having bowel movements. I will start oral clear liquid diet and monitor. I suspect that her loose stools could be related to her total abdominal colectomy. We will need to monitor her closely. 2. Colon cancer. At this time, Dr. Alford has been consulted for follow up with her. 3. Dehydration. Currently being improved with IV resuscitation. 4. Multiple medical comorbidities. Currently being managed by the hospitalist service. I appreciate the consult. I will continue to follow with you. cc: MD Antonio Galan MD
[2016-08-06] MEDS: DILAUDID IV PRN (10:37)
[2016-08-06] MEDS: ISMO PO SCH (10:38)
[2016-08-06] MEDS: CARDIZEM CD PO SCH (10:38)
[2016-08-06] MEDS: ANUSOL-HC SUPP PR SCH ×2 (14:04→23:00)
[2016-08-06] MEDS: MORPHINE IV PRN ×3 (14:04→20:57)
--- NOTE | 2016-08-06 14:46 | PROGRESS NOTE ---
DATE: 08/06/2016 SUBJECTIVE: Patient reports feeling fine, feeling really hungry. No nausea, vomiting or abdominal pain. She is still having loose bowel movements. OBJECTIVE: Vital Signs: Temperature 98.3 degrees, heart rate is 90, respiratory rate is 17, blood pressure 109/55, O2 saturation 98% on room air. General Examination: This is a 60-year-old female lying in bed, in no acute distress. HEENT: Head is normocephalic, atraumatic. Anicteric sclerae and pale conjunctivae. Mucous membranes moist. Neck: Supple. No JVD noted. No carotid bruits. No lymphadenopathy. No thyromegaly. Cardiovascular: S1 and S2 heard. No murmurs, gallops, or rubs. Regular rate and rhythm. Respiratory: Clear bilaterally to auscultation. No work of breathing or using accessory muscles. Abdomen: Soft. There is a midline abdominal incision, healing. I think to remove it, and abdomen is soft, nondistended. There are bowel sounds present in all quadrants, and no signs of peritoneal irritation. Extremities: No clubbing, cyanosis, or edema. Peripheral pulses present in both legs. Neurological: Patient is alert and oriented x3. Moves 4 extremities. LABORATORY DATA: Hemoglobin 8.0. BMP is unremarkable. Magnesium 1.5. ASSESSMENT AND PLAN: 1. Acute kidney injury most likely secondary to dehydration, and after we have started her on IV fluids the renal function is back to normal. 2. Colonic adrenal carcinoma. Stable. 3. Possible partial small-bowel obstruction. I think this patient has ileus, and Dr. Banda from General Surgery also thinks the same. This condition is resolving. At this time, they are not going to do any surgery, and they are planning to observe this patient in the hospital. 4. Hypertension. Stable. 5. Hypomagnesemia. Resolved. 6. Diabetes mellitus type 2. Blood sugars under control. 7. Hyperlipidemia. Patient is on home medications. 8. Coronary artery disease. Patient does not have any chest pain. 9. Tobacco abuse. Discussed. cc: Antonio Velez MD
[2016-08-06] MEDS: LOVENOX SUBQ SCH (20:56)
[2016-08-06] MEDS: PROTONIX IV SCH (20:57)
[2016-08-06] MEDS: SODIUM CHLORIDE 0.9% INJ SCH (20:57)
[2016-08-07] MEDS: MORPHINE IV PRN ×6 (02:37→20:36)
[2016-08-07 05:42] LABS: MANUAL DIFF NEEDED? NO
[2016-08-07] MEDS: NS 1,000 ML IV SCH ×2 (05:43→15:14)
[2016-08-07 06:04] LABS: BASO% 0.6 % (0.0-0.8); EOS# 0.69 X1000 (0.0-0.7); EOS% 8.7 % (0.0-10.0); HEMATOCRIT 25.5 % (37.0-47.0); HEMOGLOBIN 7.9 g/dL (12.0-16.0); IMM GRAN# 0.04 X1000 (0.0-0.04); IMM GRAN% 0.5 % (0.0-0.5); LYMPH# 2.68 X1000 (1.2-3.4); LYMPH% 33.9 % (20.5-51.1); MCH 24.4 PG (27-31); MCV 78.7 FL (81-99); MONO# 0.82 X1000 (0.11-0.59); MONO% 10.4 % (1.7-9.3); MPV 10.3 FL (7.4-10.4); NEUT% 45.9 % (42.2-75.2); PLT 416 X1000 (130-400); RBC 3.24 XMIL (4.2-5.4)
[2016-08-07 06:18] LABS: AGAP 12; BUN 8 mg/dL (8-22); CALCIUM 8.4 mg/dL (8.8-10.2); CHLORIDE 102 mmol/L (98-107); COSMO 282; SODIUM 141 mmol/L (136-145); TCO2 27 mmol/L (25-35)
[2016-08-07 06:20] LABS: MAGNESIUM 0.9 mg/dL (1.5-2.7)
[2016-08-07] MEDS ORDERED: MAGNESIUM SULFATE 4 GM/S.W.I. 4 GM/100 ML IVPB IV ONE (06:42)
--- NOTE | 2016-08-07 06:51 | PROGRESS NOTE ---
DATE: 08/07/2016 SUBJECTIVE: Patient doing okay. No major issues. Having bowel movements. She does report some pain in her rectum from after all the bowel movements. OBJECTIVE: Vital Signs: Patient is currently afebrile. Her vital signs are stable. General Examination: No acute distress. Cardiovascular: Regular rate and rhythm. Lungs: Grossly clear. Neck: Supple. Abdomen: Soft, nontender, nondistended. Incision is healing well. Extremities: Moves all extremities. Neurologic: Grossly intact. Skin: No signs of jaundice. Vascular: All extremities perfused. Laboratory: Reviewed. White blood cell count is 7, hematocrit 25. Magnesium is low at 0.9. Microbiology shows gram-negative rods in her urine. ASSESSMENT/PLAN: A 60-year-old, female, status post total abdominal colectomy with some abdominal pain. 1. Abdominal pain. At this time, I think that she is clinically improved from her ileus. Some of her abdominal pain might be related to her urinary tract infection. She is on a regular diet, having loose stools. I suspect that she might need some Imodium that she can tailor to keep her bowel movements a little bit thicker. 2. Colon cancer. At this time, patient is being followed by Dr. Alford. 3. Dehydration, currently being improved with intravenous resuscitation. 4. Multiple medical comorbidities, currently being managed by the hospitalist service. From a surgical point of view, I think she is potentially close to being able to be discharged. cc: Brigido Banda MD
[2016-08-07] MEDS: HUMULIN R SUBQ SCH ×4 (07:45→23:53)
[2016-08-07] MEDS ORDERED: NEUTRA-PHOS PO ONE (08:42)
[2016-08-07] MEDS ORDERED: MAGNESIUM SULFATE 2 GM/S.W.I. 2 GM/50 ML IVPB IV ONE (08:42)
[2016-08-07] MEDS ORDERED: IMODIUM PO ONE (08:43)
[2016-08-07] MEDS: ISMO PO SCH (08:54)
[2016-08-07] MEDS: CARDIZEM CD PO SCH (08:54)
[2016-08-07] MEDS: ANUSOL-HC SUPP PR SCH ×3 (08:55→16:21)
[2016-08-07] MEDS: ZOSYN 3.375 GM/NS 3.375 GM/50 ML IVPB IV SCH ×3 (14:57→17:19)
[2016-08-07] MEDS: PYRIDIUM PO SCH ×2 (15:13→16:21)
--- NOTE | 2016-08-07 17:09 | PROGRESS NOTE ---
DATE: 08/07/2016 SUBJECTIVE: Ms. Whitney is a 60-year-old female. She is in no acute distress. Resting comfortably in her bed. States that she is still having frequent diarrheal stools but not as bad as yesterday. She does have some abdominal cramping to the left of her incision, close to the umbilicus. The abdomen is soft. She has hyperactive bowel sounds. No other complaints. She does state that she feels pressure when she tries to urinate, burning with urination. OBJECTIVE: Vital Signs: Temperature is 98.6 degrees, heart rate 87, respiratory rate 17, blood pressure 151/64, 97% on room air. General: Ms. Whitney is a 60-year-old female. She is in no acute distress. Able to answer questions appropriately. Pulmonary: Clear to auscultation. Bilateral breath sounds. No accessory muscle use or work of breathing noted. Cardiovascular: S1, S2. Regular rate and rhythm. No rubs, gallops, murmurs. GI: Soft. Semi distended. Hyperactive bowel sounds. Tender to the left of the healing incision, close to the umbilicus. She feels pain or tenderness. LABORATORY DATA: White blood cells 7,000, hemoglobin 7.9, hematocrit 25.5, platelet count 416,000. Sodium 141, potassium 4.0, BUN 8, creatinine 0.8, glucose 138, phosphorus 2.6, magnesium 2.2. IMAGING: None. ASSESSMENT AND PLAN: 1. Partial small bowel obstruction versus ileus, leaning more towards ileus. She is having frequent stools that her diarrhea. She is not going to have surgery. Still with some mild abdominal pain to the left of the umbilicus. Incision is healing from her last surgery. 2. Colonic adenocarcinoma that involved lymph nodes of the ascending colon and the rectum. Complained of rectal pain. She will have Anusol suppositories 3 times a day for pain and hemorrhoids. 3. Hypomagnesemia. She has had several IV magnesium boluses. Will start her on magnesium oxide 800 mg p.o. twice daily. 4. Urinary tract infection present on admission. She had a urinalysis with culture performed and she has E. coli. Zosyn has been started. 5. Severe diarrhea. Metamucil twice a day has been added. She has received a dose of Imodium this morning. 6. Hypertension, stable. 7. Diabetes mellitus type 2. Continue pattern blood glucoses and sliding scale insulin. 8. Hyperlipidemia. 9. Tobacco abuse. Cessation discussed. 10. Iron deficiency anemia. We will add iron supplementation. Dictated by URI Tolbert for Antonio Velez MD cc: URI Tolbert MD
--- NOTE | 2016-08-07 17:12 | CONSULTATION ---
DATE OF CONSULTATION: 08/07/2016 REQUESTING PHYSICIAN: Antonio Velez MD CHIEF COMPLAINT/HISTORY OF PRESENT ILLNESS: The patient is a 60-year-old female who was seen in our clinic for evaluation and management of recently diagnosed cecal T3N2 as well as rectal T2N1 adenocarcinoma, status post resection approximately about 2 weeks ago. When I saw her in the clinic she looked dry and was hypotensive. Labs revealed a creatinine of over 2. She was sent to the ER for evaluation and further management. She was subsequently admitted. With IV fluids, her creatinine has normalized at this time. She was due to have a CT scan from Dr. Marr's office scheduled for Monday. However, the ER went ahead and performed a CT scan. No evidence of metastatic disease was noted. Some ileus was noted. Surgery is following. Over the last couple of days, she has felt better. She continues to have loose stools since surgery. No other complaints today. PAST MEDICAL HISTORY: Asthma/COPD hypertension, diabetes, hyperlipidemia, CAD, history of CHF. Last EF 65-70% with normal diastolic function in 2013. PAST SURGICAL HISTORY: Total abdominal colectomy with ileorectal anastomosis on 07/22/2016. Coronary stents, hysterectomy, right foot surgery. SOCIAL HISTORY: Patient is a chronic smoker. She denies alcohol or substance abuse. FAMILY HISTORY: Positive for positive for diabetes, breast cancer, CHF, lung cancer. MEDICATIONS: Cardizem, Lovenox, hydralazine, isosorbide mononitrate, Zofran, Protonix. REVIEW OF SYSTEMS: As dictated above. All other review of systems are negative. PHYSICAL EXAMINATION: General: Patient is alert and oriented, in no acute distress. Vital Signs: Temperature 98.6 degrees, pulse 87, blood pressure 151/64. HEENT: Eyes EOMI. PERRLA. Anicteric. Mucous membranes are moist. Cardiac: Regular rate and rhythm. Normal S1, S2. Chest: Clear to auscultation. Abdomen: Soft, nontender, without hepatosplenomegaly or masses. Extremities: Reveal no edema. Neurological: Alert and oriented x3. No focal motor deficits. Lymph nodes: Lymph node survey is negative. LABORATORY DATA: White count 7.9, hemoglobin 8, hematocrit 26, MCV 78, platelets 416,000. BUN 8, creatinine 0.8. LFTs are normal. Iron percent saturation 7, TIBC 229, ferritin 41, B12 591, folate 12.2. ASSESSMENT AND PLAN: 1. T3N2 cecal cancer and T2N1 rectal cancer: Patient is 2 weeks after surgery. Still having diarrhea due to her recent colon surgery. Doing well otherwise. Some postoperative pain. Continue to manage this. She will require adjuvant therapy and Port-A-Cath placement. I will continue to follow up outpatient. 2. Acute renal insufficiency: With IV fluids creatinine has normalized. 3. Diarrhea: Fiber t.i.d. Imodium p.r.n. 4. Anemia: This is due to her gastrointestinal bleeding and recent surgery. She appears to have iron deficiency. Plan for IV iron outpatient. 5. Hypomagnesemia: Magnesium is being repleted. 6. Disposition: As soon as medically stable, okay with discharge. 7. Deep venous thrombosis prophylaxis: On Lovenox. cc: Aroldo Alford MD
[2016-08-07] MEDS: ICAR-C PO SCH (20:39)
[2016-08-07] MEDS: SODIUM CHLORIDE 0.9% INJ SCH (20:39)
[2016-08-07] MEDS: METAMUCIL PO SCH ×2 (20:39)
[2016-08-07] MEDS: PROTONIX IV SCH (20:39)
[2016-08-07] MEDS: MAG-OX PO SCH (20:39)
[2016-08-07] MEDS: LOVENOX SUBQ SCH (20:39)
[2016-08-08] MEDS: NS 1,000 ML IV SCH ×2 (00:53→08:32)
[2016-08-08] MEDS: ZOSYN 3.375 GM/NS 3.375 GM/50 ML IVPB IV SCH ×3 (00:53→06:12)
[2016-08-08] MEDS: MORPHINE IV PRN ×2 (00:53→04:29)
[2016-08-08] MEDS ORDERED: CALAMINE LOTION TOP PRN (03:11)
[2016-08-08] MEDS ORDERED: CALMOSEPTINE OINTMENT TOP PRN (03:24)
--- NOTE | 2016-08-08 03:53 | HISTORY AND PHYSICAL ---
ADDENDUM REPORT Add to assessment and plan last number acute kidney injury. Her baseline creatinine is anywhere from 0.6 to 0.9 over the last 3 to 4 years. Today she presents with a creatinine of 2.[address] Alford's office. She will receive IV fluid hydration. We will do renal labs. Dictated by URI Tolbert for Antonio Velez MD cc: URI Tolbert MD
[2016-08-08 05:39] LABS: MANUAL DIFF NEEDED? NO
[2016-08-08 05:45] LABS: BASO% 0.5 % (0.0-0.8); EOS# 1.15 X1000 (0.0-0.7); EOS% 14.6 % (0.0-10.0); HEMATOCRIT 26.3 % (37.0-47.0); HEMOGLOBIN 8.1 g/dL (12.0-16.0); IMM GRAN# 0.03 X1000 (0.0-0.04); IMM GRAN% 0.4 % (0.0-0.5); LYMPH% 30.4 % (20.5-51.1); MCH 24.3 PG (27-31); MCHC 30.8 g/dL (33-37); MONO% 11.4 % (1.7-9.3); NEUT% 42.7 % (42.2-75.2); PLT 386 X1000 (130-400); RBC 3.33 XMIL (4.2-5.4)
[2016-08-08 06:02] LABS: AGAP 13; BUN 5 mg/dL (8-22); CALCIUM 8.9 mg/dL (8.8-10.2); CHLORIDE 101 mmol/L (98-107); COSMO 276; MAGNESIUM 1.2 mg/dL (1.5-2.7); SODIUM 139 mmol/L (136-145); TCO2 25 mmol/L (25-35)
[2016-08-08] MEDS: HUMULIN R SUBQ SCH (06:12)
--- NOTE | 2016-08-08 06:36 | PROGRESS NOTE ---
DATE: 08/08/2016 SUBJECTIVE: Patient doing well. No major issues. She did have 5 bowel movements yesterday. OBJECTIVE: Vital Signs: Patient is currently afebrile. Her vital signs are stable. General: No acute distress. HEENT: Normocephalic, atraumatic. Pupils equal, round, reactive to light. Mucous membranes moist. Oropharynx benign. Neck: Supple. Trachea midline. Cardiovascular: Regular rate and rhythm. Lungs: Grossly clear. Abdomen: Soft, appropriately tender. Incision healing well. Extremities: Moves all extremities well. Neurologic: Grossly intact. Skin: No signs of jaundice. Vascular: All extremities perfused. LABORATORY: White blood cell count is 7, hematocrit 26. The remainder of labs reviewed. ASSESSMENT/PLAN: A 60-year-old female, status post total abdominal colectomy with some abdominal pain. 1. Abdominal pain. At this time she is improving. I suspect she will continue to have loose stools given her total abdominal colectomy I recommend skin continuing Imodium until her her bowel movements are a little thicker. 2. Multiple other medical issues being managed by the hospitalist service. cc: Brigido Banda MD MTDD
[2016-08-08] MEDS ORDERED: TYLENOL PO ONE (07:31)
[2016-08-08] MEDS ORDERED: BENADRYL IV ONE (07:31)
[2016-08-08 07:56] VITALS: BP 116/55
[2016-08-08] MEDS ORDERED: VENOFER 500 MG in NS 250 ML IV ONE (08:00)
[2016-08-08] MEDS ORDERED: MAGNESIUM SULFATE 2 GM/S.W.I. 2 GM/50 ML IVPB IV ONE (08:04)
[2016-08-08] MEDS: MAG-OX PO SCH (08:31)
[2016-08-08] MEDS: ISMO PO SCH (08:31)
[2016-08-08] MEDS: PYRIDIUM PO SCH (08:31)
[2016-08-08] MEDS: ANUSOL-HC SUPP PR SCH (08:31)
[2016-08-08] MEDS: CARDIZEM CD PO SCH (08:31)
[2016-08-08] MEDS: ICAR-C PO SCH (08:31)
[2016-08-08] MEDS: METAMUCIL PO SCH ×2 (08:31)
--- NOTE | 2016-08-09 06:23 | DISCHARGE SUMMARY ---
ADMISSION DATE: 08/05/2016 DISCHARGE DATE: 08/08/2016 CONSULTATIONS: 1. Dr. Alford with oncology/hematology. 2. Dr. Brigido Banda with general surgery. PERTINENT PROCEDURES: Abdomen and pelvis CT. Impression: Findings likely represent an ileus, although there could be a partial obstruction or even enteritis. No abscess or free air. DISCHARGE DIAGNOSES: 1. Partial small bowel obstruction versus ileus. The patient was having frequent stools that were diarrhea. Secondary to her total abdominal colectomy, recommended continuing Imodium to keep her bowel movements thicker per general surgery. Abdominal pain has improved. 2. Colonic adenocarcinoma that involved lymph nodes of ascending colon and the rectum. Complained of rectal pain. We will continue with Anusol suppositories 3 times a day for pain, improved. 3. Hypomagnesemia, resolved. 4. Urinary tract infection. Continue with oral antibiotics. 5. Hypertension, stable. 6. Diabetes mellitus type 2. Continue home medications. 7. Hyperlipidemia. Continue statin. 8. Tobacco abuse. Smoking cessation was discussed daily. 9. Iron deficiency anemia. Continue with iron supplementation. HOSPITAL COURSE: Ms. Whitney is a 60-year-old, female with a past medical history of colonic adenocarcinoma with positive lymph nodes. Recently had a total abdominal colectomy with ileorectostomy by Dr. Marr on 07/22/2016. She stated that she had diarrhea ever since and that she has had nausea for years. Over the last 4 days prior to her admission, she has had a decreased appetite with increased abdominal and rectal pain. She had a followup appointment with Dr. Marr where her genny were removed. Given her symptoms, he suspected a small-bowel obstruction and ordered her to have an abdominal CT that was scheduled for Monday. She also had an appointment with Dr. Alford. Her creatinine was found to be elevated and she was sent here for IV fluids. Her CT results, that was done in the ED, revealed ileus versus partial small-bowel obstruction versus enteritis. No abscess or free air. White count was 10,000. BUN and creatinine of 25 and 2. She also had a magnesium level of 1 for which she did receive IV magnesium supplementation. Potassium was stable. She was started on IV fluids for hydration and to help improve her kidney function, as well as being made n.p.o. for possible small bowel obstruction versus ileus, with a consult with general surgery as well as Dr. Alford. Per Dr. Banda, he felt that the patient's loose stools could be related to her abdominal colectomy and that some of her abdominal pain might be related to her UTI. She was started on a clear liquid diet and tolerated her clear liquid diet well. She was transitioned to a regular diet. They added Imodium to help keep her bowel movements thicker, as well as added fiber to her diet. Dr. Alford assessed the patient and will continue to follow her as an outpatient for her therapy and for her anemia, they will do IV iron as an outpatient. Clinically, the patient has improved. She will be discharged home today on Anusol as well as Icar-C and Imodium. Vital signs at the time of her discharge, temperature is 98.1 degrees, heart rate 82, respirations 18, blood pressure 116/55, O2 is 99% on room air. DISCHARGE DIET: GI soft. DISCHARGE MEDICATIONS: 1. Keflex for her UTI. 2. Symbicort 160/4.5 mcg inhaler 2 puffs inhaled RT b.i.d. 3. Celexa 40 mg p.o. daily. 4. Diazepam 5 mg p.o. daily. 5. Cardia XT 180 mg p.o. daily. 6. Anusol suppository 25 mg MO t.i.d. 7. Icar-C 1 each p.o. b.i.d. 8. Lisinopril 20 mg p.o. b.i.d. 9. Imodium 1 capsule p.o. t.i.d. p.r.n. 10. Magnesium oxide 800 mg p.o. b.i.d. 11. Reglan 10 mg p.o. q.6 hours p.r.n. 12. Percocet 5/325 one tablet p.o. q.4 hours p.r.n. pain. 13. Effient 10 mg p.o. daily. 14. Pravachol 20 mg p.o. at bedtime. 15. Lyrica 150 mg p.o. b.i.d. 16. mg p.o. q.6 hours p.r.n. FOLLOWUP: Ms. Whitney is being discharged home. She will be followed by [facility]. The patient can return to the ED for any worsening of symptoms. She should keep her followup appointments with Dr. Marr as well as Dr. Alford. The patient can return to the ED for any worsening of symptoms. Discharge time, 30 minutes. Dictated by URI Bonilla for Antonio Vleez MD cc: Antonio Velez MD MTDD
== END 2016-08-08 13:35 | disposition home health service (06) ==
LOC: ED 14:59 → 4N 18:50
PROVIDERS: ATTEND Internal Medicine

== ENCOUNTER 2016-09-30 09:09 | Inpatient (IN) ==
--- NOTE | 2016-09-30 11:39 | CONSULTATION ---
DATE OF CONSULTATION: 09/30/2016 CONSULT REQUESTED: Hematology/Oncology. REASON FOR CONSULT: The patient is known to us with T2 N2 cecal adenocarcinoma and synchronous T2 N1 rectal adenocarcinoma currently undergoing chemotherapy with 5-FU. HISTORY OF PRESENT ILLNESS: The patient is known to us with T2 N2 cecal adenocarcinoma and T2 N1 rectal adenocarcinoma status post total abdominal colectomy with ileorectal anastomosis on 07/02/[address] Marr. She began adjuvant 5-FU on 09/05/2016. Her last dose was on 09/20. She has been having some difficulties with diarrhea ever since her surgery. She was seen in our clinic today. We had assumed the diarrhea was from her surgery and from her chemotherapy, however her diarrhea has been worsening. On the , we obtained stools for culture and for C. difficile toxin testing and those results came back positive. She was also seen in our clinic today with complaints of worsening diarrhea. She had at least 8 episodes of diarrhea last night. She looks quite ill. She is not keeping much water down. We obtained labs. Her sodium was 128, BUN was 24 and creatinine was 2.1. Her baseline creatinine is typically around 0.8. She denies any fevers, lumps, bumps or bone pain, any chills, nausea or vomiting. She has been admitted to the hospitalist service for further management and hydration. REVIEW OF SYSTEMS: Negative unless indicated in the HPI. PAST MEDICAL HISTORY: Synchronous colon and rectal cancer as above status post total abdominal colectomy with ileorectal anastomosis. Hemorrhoids, iron deficiency anemia and nicotine as patient smokes approximately a pack of cigarettes a day. SOCIAL HISTORY: The patient has a supportive family. She denies alcohol or illicit drug use. She is a 1 pack-a-day smoker and has been for many years. ALLERGIES: Codeine, Zyrtec, azithromycin and sulfa. DIAGNOSTIC DATA FROM OUR CLINIC: The patient is Clostridium difficile positive. Sodium 128, potassium 4.1, BUN 24, creatinine 2.14, magnesium 1.5. WBC 4.3, hemoglobin 12.2 , platelet count 325,000. PHYSICAL EXAMINATION: Vital Signs: Stable. HEENT: Head is normocephalic, atraumatic. Mucous membranes are quite dry. Trachea is midline. Constitutional: Patient is a frail-appearing female. Cardiovascular: S1-S2 audible to auscultation with no heaves , lifts, thrills, or murmurs. Pulmonary: Breath sounds clear to auscultation. Normal respiratory effort. Abdomen: Soft. It is slightly tender. Positive bowel sounds in all 4 quadrants. Neurologic: Alert and orient x3. Psychiatric: Appropriate to the situation. Skin: No petechiae, ecchymosis or rash. There is a power port in place. Musculoskeletal: Moves all extremities. ASSESSMENT AND PLAN: 1. T2 N2 cecal adenocarcinoma and synchronous T2 N1 rectal adenocarcinoma currently undergoing adjuvant chemotherapy. Last chemotherapy received on 09/20. It was 5-FU. 2. Clostridium difficile colitis. We will order vancomycin oral for her to begin. We will also order IV fluids per the hospitalist. 3. Clinically dehydrated. We will give patient IV fluids with plans as above. 4. Acute renal failure. Creatinine was 2.14 in our clinic secondary to above. Plan for IV fluids. We will monitor. 5. Deep vein thrombosis prophylaxis. Plan for SCDs. Dictated by URI Cueto for Aroldo Alford MD cc: URI Cueto MD [facility]
[2016-09-30 14:47] LABS: MANUAL DIFF NEEDED? NO
[2016-09-30] MEDS ORDERED: ZOFRAN IV PRN ×2 (14:47→17:12)
[2016-09-30 14:49] LABS: BASO% 1.1 % (0.0-0.8); EOS# 0.06 X1000 (0.0-0.7); EOS% 1.1 % (0.0-10.0); HEMATOCRIT 38.1 % (37.0-47.0); HEMOGLOBIN 12.5 g/dL (12.0-16.0); LYMPH# 3.47 X1000 (1.2-3.4); LYMPH% 62.6 % (20.5-51.1); MCH 27.7 PG (27-31); MCHC 32.8 g/dL (33-37); MCV 84.3 FL (81-99); MONO# 1.07 X1000 (0.11-0.59); MONO% 19.3 % (1.7-9.3); MPV 10.1 FL (7.4-10.4); NEUT% 15.9 % (42.2-75.2); PLT 298 X1000 (130-400); RBC 4.52 XMIL (4.2-5.4)
[2016-09-30] MEDS ORDERED: NS 1,000 ML IV ONE (15:03)
[2016-09-30 15:15] LABS: ALBUMIN 4.1 g/dL (3.5-5.0); CALCIUM 10.5 mg/dL (8.8-10.2); POTASSIUM 4.6 mmol/L (3.5-5.1); TOTAL BILIRUBIN 0.48 mg/dL (0.20-1.00); TOTAL PROTEIN 7.4 g/dL (6.3-8.3)
[2016-09-30] MEDS: VANCOCIN PO SCH ×2 (15:25→20:29)
--- NOTE | 2016-09-30 16:17 | HISTORY AND PHYSICAL ---
CHIEF COMPLAINT: Diarrhea, Clostridium difficile. 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 She is currently undergoing 5-FU with her last dose being 09/20/[address] Alford. The patient states that she has had diarrhea ever since surgery, but it seemed to get better and then last week diarrhea increased in frequency as well as amount. She states that she feels dehydrated. She was unable to keep up with her fluid status due to the increase in diarrhea. According to the records, the stool did return back positive for C. difficile on 09/26/[address] Alford's office. She is reporting 8-10 episodes of diarrhea a day. In Dr. Alford's office, she did have a sodium of 128 with a BUN of 24, and creatinine of 2.1 with a baseline creatinine of 0.8. She has being admitted for further evaluation and treatment. PAST MEDICAL HISTORY: 1. Synchronous colon and rectal cancer, status post total abdominal colectomy with ileorectal anastomosis. 2. Hemorrhoids. 3. Iron deficiency anemia. 4. Nicotine use and abuse. SOCIAL HISTORY: She denies alcohol or illicit drug use. She does smoke a pack a day. She has family that live close and very active in her care. ALLERGIES: Codeine, Zyrtec, azithromycin, sulfa, and Remeron. HOME MEDICATIONS: A list will be obtained. REVIEW OF SYSTEMS: A 14-point Review of Systems is discussed with patient with pertinent positives stated in HPI. She denied any black or bloody vomitus, black or bloody stools, any hematuria, dysuria, frequency, urgency, cough, fever, chills, chest pain, palpitations, dizziness, syncope. PHYSICAL EXAMINATION: GENERAL: This is a 61-year-old, ill-appearing female who is lying in the bed, in no distress. HEENT: Head is normocephalic, atraumatic. Pupils equal, round, react to light. EOMs are intact. Sclerae anicteric. Mucous membranes are quite dry. NECK: Trachea is midline with neck supple. CARDIOVASCULAR: Regular rate and rhythm. S1 and S2 appreciated. PULMONARY: Breath sounds are clear with no increased work of breathing noted. Chest does rise and fall symmetrically with respiration. GASTROINTESTINAL: Abdomen is soft with some general tenderness. Nondistended with bowel sounds in all 4 quadrants. NEUROLOGIC: She is alert and oriented x3. MUSCULOSKELETAL: Good range of motion of joints. EXTREMITIES: No clubbing, cyanosis, or edema. Calves are nontender. Pulses are palpable x4. SKIN: Warm and dry with poor turgor. ASSESSMENT AND PLAN: 1. Clostridium difficile colitis. We will order oral vancomycin, give IV hydration, trend electrolytes. 2. Volume dehydration due to diarrhea. We will give IV hydration. 3. Acute renal failure. Creatinine was 2.[address] Alford's clinic prior to admission. Reportedly, she is 0.8. We will give IV hydration and trend her labs. We will hold any renal toxic medications and renal dose as needed. 4. T2N2 cecal adenocarcinoma and synchronous T2N1 rectal adenocarcinoma, currently undergoing adjunct chemotherapy with last chemo received 725. This is per Dr. Alford. 5. For deep venous thrombosis prophylaxis, we will use sequential compression devices and for gastrointestinal prophylaxis Prilosec. Further treatments pending hospital course. Dictated by URI Chan for Shawn Bhandari MD cc: URI Chan MD Naveen T. Lobo, MD pt examined, agree with above, will check abg as pt is difficult to arouse and has copd, APENOT MTDD
[2016-09-30] MEDS: NS 1,000 ML IV SCH ×2 (16:26→23:36)
[2016-09-30] MEDS ORDERED: TYLENOL PO PRN (17:12)
[2016-09-30 17:29] LABS: ALLEN TEST YES; BE 12.8 mmoll (-3.0-3.0); BLOOD TYPE ARTERIAL; DRAW SITE R RADIAL; METHB 1.2 % (0.0-1.5); MODALITY ROOM AIR; O2(CT) 14.1 mL/dL (15.0-23.0); PCO2(98.6) 37 mmHg (35-45); PO2(98.6) 83 mmHg (60-100); SAMPLE BLOOD; SAO2 97.8 % (95.0-100.0); THB 10.8 g/dL (11.5-17.4)
[2016-09-30 17:31] LABS: pH(98.6) 7.59 (7.35-7.45)
[2016-09-30] MEDS: SYMBICORT 160/4.5 MICROGM INHALER INH SCH (19:05)
[2016-09-30] MEDS: MAG-OX PO SCH (20:29)
[2016-09-30] MEDS: LYRICA PO SCH (20:29)
[2016-09-30] MEDS: ICAR-C PO SCH (20:29)
[2016-09-30] MEDS: CULTURELLE PO SCH (20:29)
[2016-09-30] MEDS: PRAVACHOL PO SCH (20:29)
[2016-10-01] MEDS: VANCOCIN PO SCH ×4 (02:17→20:57)
[2016-10-01] MEDS: NS 1,000 ML IV SCH (06:11)
[2016-10-01 06:12] LABS: BASO% 0.8 % (0.0-0.8); EOS# 0.15 X1000 (0.0-0.7); EOS% 3.2 % (0.0-10.0); HEMATOCRIT 32.7 % (37.0-47.0); HEMOGLOBIN 10.3 g/dL (12.0-16.0); LYMPH# 3.22 X1000 (1.2-3.4); LYMPH% 68.2 % (20.5-51.1); MANUAL DIFF NEEDED? YES; MCH 27.5 PG (27-31); MCHC 31.5 g/dL (33-37); MCV 87.2 FL (81-99); MONO# 0.82 X1000 (0.11-0.59); MONO% 17.4 % (1.7-9.3); MPV 10.1 FL (7.4-10.4); NEUT% 10.4 % (42.2-75.2); PLT 266 X1000 (130-400); RBC 3.75 XMIL (4.2-5.4)
[2016-10-01 06:21] LABS: ALBUMIN 3.3 g/dL (3.5-5.0); CALCIUM 8.2 mg/dL (8.8-10.2); POTASSIUM 3.5 mmol/L (3.5-5.1); TOTAL BILIRUBIN 0.19 mg/dL (0.20-1.00); TOTAL PROTEIN 5.6 g/dL (6.3-8.3)
[2016-10-01 06:22] LABS: LYMPHS 66 % (21-51); MONO 16 % (1-9)
[2016-10-01] MEDS: SYMBICORT 160/4.5 MICROGM INHALER INH SCH ×2 (08:03→20:22)
[2016-10-01 08:05] LABS: UR CREAT RANDOM 96.2 mg/dL (11-20)
[2016-10-01] MEDS: GRANIX SUBQ SCH ×2 (09:24→09:28)
[2016-10-01] MEDS: EFFIENT PO SCH (09:25)
[2016-10-01] MEDS: LYRICA PO SCH ×2 (09:25→20:57)
[2016-10-01] MEDS: CELEXA PO SCH (09:25)
[2016-10-01] MEDS: MAG-OX PO SCH ×2 (09:25→20:57)
[2016-10-01] MEDS: ICAR-C PO SCH ×2 (09:25→20:57)
[2016-10-01] MEDS: CARDIZEM CD PO SCH (09:25)
[2016-10-01] MEDS: CULTURELLE PO SCH ×2 (09:25→20:57)
[2016-10-01] MEDS ORDERED: CALMOSEPTINE OINTMENT TOP PRN (13:15)
--- NOTE | 2016-10-01 16:03 | PROGRESS NOTE ---
DATE: 10/01/2016 SUBJECTIVE: Patient is much more awake, alert. She seems better. She says her diarrhea is better. She feels overall better. OBJECTIVE: Hemoglobin and hematocrit 10/32, platelets of 266,000, white count 4.7. Creatinine is 1, down from 1.9. Her ABG yesterday was pretty good on room air 7.59, pCO2 37, PaO2 of 83. C. difficile is pending. Urine sodium was 13. Urine creatinine of 96. PROBLEM LIST: 1. C. difficile colitis. Clinically, she is improved on vancomycin. We will continue to follow. 2. Acute kidney injury due to dehydration. This also appears to be improved. I am going to continue IV fluids for the time being. 3. Cecal adenocarcinoma, rectal adenocarcinoma. She is getting treatment per Dr. Alford. She was due for her second round I think of chemo. We will continue to monitor her counts closely. 4. Chronic obstructive pulmonary disease. Appears to be compensated. I do not appreciate wheezing or shortness of breath. 5. Altered mentation. She was fairly lethargic yesterday but seems stable. DISPOSITION: Hopefully home in the next 1-2 days. We will continue to monitor closely. cc: MD Aroldo Lopez MD
[2016-10-01 16:24] LABS: URINE CULTURE NEEDED? NO; URINE MICRO REVIEW NEEDED? NO; URINE SOURCE CATH
[2016-10-01 16:31] LABS: BILIRUBIN URINE NEGATIVE (NEGATIVE); BLOOD URINE NEGATIVE (NEGATIVE); COLOR YELLOW; GLUCOSE URINE NEGATIVE (NEGATIVE); LEUKOCYTES URINE NEGATIVE (NEGATIVE); NITRITE URINE NEGATIVE (NEGATIVE); PH URINE 7.5; PROTEIN URINE NEGATIVE (NEGATIVE); SP GRAVITY URINE 1.008; TURBIDITY URINE CLEAR (CLEAR); UROBILINOGEN URINE NORMAL (NORMAL)
[2016-10-01 16:32] LABS: UR EPITHELIAL CELLS <10 /HPF (<10); URINE BACTERIA NEGATIVE /HPF; URINE RBC <10 /HPF (<10); URINE WBC <10 /HPF (<10)
[2016-10-01] MEDS: PRAVACHOL PO SCH (20:57)
[2016-10-01] MEDS: NORCO-10 PO PRN (21:15)
[2016-10-02] MEDS: NS 1,000 ML IV SCH ×5 (00:58→17:30)
[2016-10-02] MEDS: VANCOCIN PO SCH ×4 (01:58→23:32)
[2016-10-02 06:57] LABS: BASO% 1.1 % (0.0-0.8); EOS# 0.14 X1000 (0.0-0.7); HEMATOCRIT 32.8 % (37.0-47.0); HEMOGLOBIN 10.2 g/dL (12.0-16.0); IMM GRAN# 0.03 X1000 (0.0-0.04); IMM GRAN% 0.6 % (0.0-0.5); LYMPH# 2.92 X1000 (1.2-3.4); LYMPH% 62.1 % (20.5-51.1); MANUAL DIFF NEEDED? YES; MCH 27.5 PG (27-31); MCHC 31.1 g/dL (33-37); MCV 88.4 FL (81-99); MONO# 1.02 X1000 (0.11-0.59); MONO% 21.7 % (1.7-9.3); MPV 10.1 FL (7.4-10.4); NEUT% 11.5 % (42.2-75.2); PLT 267 X1000 (130-400); RBC 3.71 XMIL (4.2-5.4)
[2016-10-02 07:07] LABS: AGAP 11; BUN 8 mg/dL (8-22); CALCIUM 8.6 mg/dL (8.8-10.2); CHLORIDE 94 mmol/L (98-107); COSMO 277; POTASSIUM 3.9 mmol/L (3.5-5.1); SODIUM 138 mmol/L (136-145); TCO2 33 mmol/L (25-35)
[2016-10-02 07:43] LABS: BANDS 4 % (0-1); LYMPHS 56 % (21-51); MONO 24 % (1-9)
[2016-10-02] MEDS: SYMBICORT 160/4.5 MICROGM INHALER INH SCH ×2 (07:55→19:20)
[2016-10-02] MEDS: CULTURELLE PO SCH ×2 (08:34→23:33)
[2016-10-02] MEDS: EFFIENT PO SCH (08:34)
[2016-10-02] MEDS: LYRICA PO SCH ×2 (08:34→23:33)
[2016-10-02] MEDS: ICAR-C PO SCH ×2 (08:34→23:30)
[2016-10-02] MEDS: CELEXA PO SCH (08:34)
[2016-10-02] MEDS: CARDIZEM CD PO SCH (08:34)
[2016-10-02] MEDS: MAG-OX PO SCH ×2 (08:34→23:33)
[2016-10-02] MEDS: GRANIX SUBQ SCH (08:35)
[2016-10-02] MEDS ORDERED: DUONEB (A & A) INH PRN (11:18)
[2016-10-02] MEDS: DUONEB (A & A) INH SCH ×4 (11:35→23:32)
[2016-10-02] MEDS: NORCO-10 PO PRN ×2 (15:14→23:44)
[2016-10-02] MEDS ORDERED: LOVENOX SUBQ SCH (16:45)
--- NOTE | 2016-10-02 17:24 | Diag Imaging Result Doc PS360 ---
EXAM: CHEST-2 VIEWS - 10/02/2016 HISTORY: hypoxia TECHNIQUE: Chest two views COMPARISON: Portable exam of 08/18/2016 FINDINGS: Heart size is normal. There are apparent COPD changes. There is no consolidation, pleural effusion, or pneumothorax identified. Central venous catheter remains in place. IMPRESSION: COPD changes. No other acute changes. Electronically signed by Tawanda Carrillo 10/02/2016 5:22 PM
--- NOTE | 2016-10-02 17:28 | Diag Imaging Result Doc PS360 ---
EXAM: HEAD W/O CONTRAST - 10/02/2016 HISTORY: encephalopathy TECHNIQUE: Dose reduction protocol COMPARISON: 08/28/2015 FINDINGS: There are some chronic microvascular ischemic changes similar to the previous exam and most prominent at the left centrum semiovale region. There is no indication of recent infarct, although acute infarcts may not be immediately visible. There is no evidence of intracranial hemorrhage, mass effect, midline shift, or hydrocephalus. There is no evidence of skull fracture. IMPRESSION: Chronic microvascular ischemic changes. No visible acute intracranial abnormality. No hemorrhage or mass effect. Electronically signed by Tawanda Carrillo 10/02/2016 5:26 PM
[2016-10-02] MEDS: FLOMAX PO SCH (17:30)
--- NOTE | 2016-10-02 19:45 | PROGRESS NOTE ---
DATE: 10/02/2016 SUBJECTIVE: Patient has no focal complaints. OBJECTIVE: Vital signs: Blood pressure 96/67, heart rate was 80, respiratory rate 16, 96% saturation on 3 L. She was 88% on room air. Temperature 98.8 degrees. She has been intermittently dropping her saturations for several days now. PROBLEM LIST: 1. Clostridium difficile colitis. She is on vancomycin. I think that has stabilized. 2. Acute kidney injury. That has also normalized. Her creatinine is normal 0.1 today. 3. Encephalopathy. Per the family she has been intermittently confused and she has been sick. Reportedly she may have fallen and hit her head, but it is unclear if that did indeed happen. She has nothing focal neurological; however, there are several issues at hand. Apparently, she was on more Remeron and Valium than she had been previously. She had acute kidney injury when she came in. Those issues I think have resolved. Now, she is intermittently hypoxic. I am not sure if that is related to her COPD. She has not been on anticoagulation. I think we probably will continue to follow that. She does not seem to be sound like she is in a COPD- exacerbated state; however, I think she probably does have significant emphysema. We will get a chest x-ray and head CT to evaluate for confusion. The only medications that are of concern are [place] and Lyrica, but these are medicines she takes at home. She is hypoxic and will likely need home oxygen therapy. 4. Disposition. Home when she has stabilized. We will continue to follow. cc: MD Aroldo Lopez MD
[2016-10-02] MEDS: PRAVACHOL PO SCH (23:31)
[2016-10-03] MEDS: VANCOCIN PO SCH ×3 (02:27→14:01)
[2016-10-03] MEDS: DUONEB (A & A) INH SCH ×3 (03:05→11:08)
[2016-10-03] MEDS: NS 1,000 ML IV SCH (05:54)
[2016-10-03 06:46] LABS: BASO% 1.1 % (0.0-0.8); EOS# 0.22 X1000 (0.0-0.7); HEMATOCRIT 31.3 % (37.0-47.0); HEMOGLOBIN 9.6 g/dL (12.0-16.0); IMM GRAN# 0.25 X1000 (0.0-0.04); IMM GRAN% 2.3 % (0.0-0.5); LYMPH# 3.56 X1000 (1.2-3.4); LYMPH% 32.7 % (20.5-51.1); MANUAL DIFF NEEDED? YES; MCH 27.4 PG (27-31); MCHC 30.7 g/dL (33-37); MCV 89.2 FL (81-99); MONO# 1.36 X1000 (0.11-0.59); MONO% 12.5 % (1.7-9.3); MPV 10.2 FL (7.4-10.4); NEUT% 49.4 % (42.2-75.2); PLT 276 X1000 (130-400); RBC 3.51 XMIL (4.2-5.4)
[2016-10-03 06:58] LABS: AGAP 10; BUN 6 mg/dL (8-22); CALCIUM 8.3 mg/dL (8.8-10.2); CHLORIDE 98 mmol/L (98-107); COSMO 274; POTASSIUM 3.4 mmol/L (3.5-5.1); SODIUM 138 mmol/L (136-145); TCO2 30 mmol/L (25-35)
[2016-10-03 07:08] LABS: BANDS 16 % (0-1); EOS 4 % (1-10); LYMPHS 22 % (21-51); MONO 14 % (1-9); NRBC 1 % (0-0)
[2016-10-03 07:21] VITALS: BP 135/68
[2016-10-03] MEDS: SYMBICORT 160/4.5 MICROGM INHALER INH SCH (07:26)
[2016-10-03] MEDS: CARDIZEM CD PO SCH (08:41)
[2016-10-03] MEDS: ICAR-C PO SCH (08:42)
[2016-10-03] MEDS: CELEXA PO SCH (08:42)
[2016-10-03] MEDS: MAG-OX PO SCH (08:42)
[2016-10-03] MEDS: FLOMAX PO SCH (08:42)
[2016-10-03] MEDS: CULTURELLE PO SCH (08:42)
[2016-10-03] MEDS: EFFIENT PO SCH (08:42)
[2016-10-03] MEDS: LYRICA PO SCH (08:42)
[2016-10-03] MEDS: NORCO-10 PO PRN (08:42)
[2016-10-03] MEDS ORDERED: KLOR-CON PO ONE (09:00)
--- NOTE | 2016-10-15 14:27 | DISCHARGE SUMMARY ---
ADMISSION DATE: 09/30/2016 DISCHARGE DATE: 10/03/2016 FINAL DISCHARGE DIAGNOSES: 1. Clostridium difficile colitis. 2. Encephalopathy. 3. Rectal and colon cancer status post total abdominal colectomy with ileal rectal anastomosis. 4. Iron deficiency anemia. 5. Tobacco dependence. 6. Acute kidney injury. HOSPITAL COURSE: Ms. Whitney is a 61-year-old female with a history of colorectal cancer status post total colectomy with ileal rectal anastomosis as well as chemotherapy who presented to the ER with persistent diarrhea. The patient was prior to admission diagnosed with C. difficile colitis and sent to the hospital for further adjustments. On admission, the patient was noted to be in acute renal failure with a BUN of 28, and a creatinine of 1.9. The patient was admitted to the hospitalist service and started on IV fluids and vancomycin plus lactobacillus. The patient responded well to the antibiotic therapy and her stools decreased and her stool actually was noted to no longer be liquid. The patient's renal function recovered and normalized. The patient was also seen by physical therapy and it was recommended that home health would be beneficial for the patient. The patient continued to improve clinically and was cleared for discharge home on 10/03/2016. DISCHARGE MEDICATIONS: 1. Vancomycin 125 mg p.o. every 6 hours. 2. Lactobacillus 1 tab oral twice a day. 3. Effient 10 mg p.o. daily. 4. Pravachol 20 mg p.o. at bedtime. 5. Phenergan 25 mg p.o. every 6 hours p.r.n. for nausea. 6. Diazepam 5 mg p.o. daily. 7. Celexa 40 mg p.o. daily. 8. Symbicort 2 puffs inhaled twice daily. 9. Reglan 10 mg p.o. every 6 hours p.r.n. 10. Icar one tab oral twice a day. 11. Magnesium oxide 800 mg p.o. twice a day. 12. Oxycodone 5 mg p.o. every 6 hours p.r.n. for pain. 13. Cardizem ER 180 mg p.o. daily. 14. Aspirin 81 mg p.o. daily. 15. Lyrica 150 mg p.o. twice a day. DISCHARGE DIET: Low-sodium diet. ACTIVITY: As tolerated. FOLLOWUP INSTRUCTIONS: The patient will need to follow up with Dr. Alford as scheduled by his clinic. cc: MD Aroldo Gomez MD
== END 2016-10-03 14:22 | disposition home health service (06) ==
LOC: SUATTDRO 09:09 → DIRADM 09:09 → 3N 13:56
PROVIDERS: ADMIT Internal Medicine Medical Oncology; ATTEND Internal Medicine

== ENCOUNTER 2018-05-04 12:15 | Inpatient (IN) ==
[2018-05-04 12:40] LABS: BASO# 0.09 X1000 (0.0-0.2); BASO% 0.4 % (0.0-0.8); EOS# 0.38 X1000 (0.0-0.7); EOS% 1.6 % (0.0-10.0); HEMATOCRIT 48.3 % (37.0-47.0); HEMOGLOBIN 15.4 g/dL (12.0-16.0); IMM GRAN# 0.11 X1000 (0.0-0.04); IMM GRAN% 0.5 % (0.0-0.5); LYMPH# 8.56 X1000 (1.2-3.4); LYMPH% 36.6 % (20.5-51.1); MCH 27.7 PG (27-31); MCHC 31.9 g/dL (33-37); MONO# 1.76 X1000 (0.11-0.59); MONO% 7.5 % (1.7-9.3); MPV 10.3 FL (7.4-10.4); NEUT# 12.46 X1000 (1.4-6.5); NEUT% 53.4 % (42.2-75.2); PLT 345 X1000 (130-400); RBC 5.55 XMIL (4.2-5.4); WBC 23.36 X1000 (4.8-10.8)
[2018-05-04 12:53] LABS: AGAP 15; ALB/GLOB RATIO 1.3; ALBUMIN 4.6 g/dL (3.5-5.0); ALKALINE PHOSPHATASE 114 U/L (32-104); AMYLASE 40 U/L (20-200); BUN 17 mg/dL (8-22); CALCIUM 9.7 mg/dL (8.8-10.2); CHLORIDE 94 mmol/L (98-107); COSMO 277; CREATININE 0.8 mg/dL (0.5-0.9); ESTIMATED GFR > 60; GLUCOSE 154 mg/dL (70-104); GOT 22 U/L (10-30); GPT 23 U/L (10-36); LIPASE 21 U/L (13-60); POTASSIUM 4.1 mmol/L (3.5-5.1); SODIUM 136 mmol/L (136-145); TCO2 27 mmol/L (25-35); TOTAL BILIRUBIN 0.29 mg/dL (0.20-1.00); TOTAL PROTEIN 8.1 g/dL (6.3-8.3)
[2018-05-04] MEDS ORDERED: MORPHINE IV ONE (14:06)
[2018-05-04] MEDS ORDERED: NS 1,000 ML IV ONE ×2 (14:06→17:31)
[2018-05-04] MEDS ORDERED: ZOFRAN IV ONE (14:06)
--- NOTE | 2018-05-04 14:20 | EKG Report ---
Test Performed on : 05/04/2018 12:26:42 PM Test Reason : abd pain Blood Pressure : / mmHG Vent. Rate : 091 BPM Atrial Rate : 091 BPM P-R Int : 126 ms QRS Dur : 086 ms QT Int : 348 ms P-R-T Axes : 064 038 -32 degrees QTc Int : 428 ms Normal sinus rhythm. Cannot rule out Inferior infarct , age undetermined Abnormal ECG When compared with ECG of 30-JAN-2017 11:26, No significant change was found Unconfirmed Result
--- NOTE | 2018-05-04 14:25 | Diag Imaging Result Doc PS360 ---
EXAM: CHEST-PORTABLE - 05/04/2018 HISTORY: upper abdominal pain TECHNIQUE: Portable chest COMPARISON: 01/30/2017 FINDINGS: Heart size is normal. The lungs appear clear. There is no pleural effusion or pneumothorax identified. There is mild thoracic dextroscoliosis noted. Central venous catheter remains in place. IMPRESSION: No evidence of acute disease. Electronically signed by Tawanda Carrillo 05/04/2018 2:22 PM
[2018-05-04 15:23] LABS: INR 0.85; PROTIME 12.3 Seconds (11.0-16.0)
--- NOTE | 2018-05-04 15:46 | Diag Imaging Result Doc PS360 ---
CT ABD/PELVIS W/IV CONT ONLY - 05/04/2018 INDICATION: colitis COMPARISON: 11/17/2016 FINDINGS: The lung bases are clear and the heart size is normal. There is worsening, severe fatty change of the liver. There are small bilateral renal cysts. There is trace ascites. There is small bowel enteritis focally in the right lower quadrant. There has been near-total colectomy. Uterus is absent. Urinary bladder is normal. There are moderate degenerative changes of the spine. No acute or suspicious bony lesion. IMPRESSION: 1. Focal small bowel enteritis in the right lower quadrant. 2. Trace ascites. 3. Severe hepatic steatosis. This exam was performed using automated exposure control, adjustment of mA or kV according to patient size, and/or use of iterative reconstruction technique Electronically signed by Kiko Flores 05/04/2018 3:43 PM
[2018-05-04] MEDS ORDERED: ZOSYN 3.375 GM in NS 50 ML IV ONE (16:43)
--- NOTE | 2018-05-04 16:49 | PROVIDER DOCUMENTATION ---
This chart was entered by Toshia Sherwood Scribe, acting as scribe for José Manuel Nieto MD. HPI-Abdominal Pain/GI Problem - General Chief Complaint: Abdominal Pain Stated Complaint: DR ARMENTA REF-BLADDER Time Seen by Provider: 05/04/18 14:14 Source: patient Allergies/Adverse Reactions: Patient Allergies Allergy/AdvReac Type Severity Reaction Status Date / Time Sulfa (Sulfonamide Allergy Mild HIVES Verified 09/08/16 21:50 Antibiotics) Corticosteroids Allergy Unknown Unknown Verified 09/08/16 21:50 (Glucocorticoids) azithromycin Allergy SYNCOPE Verified 09/08/16 21:50 [From Zithromax Z-Noel] cetirizine HCl * Allergy SYNCOPE Verified 09/08/16 21:50 [From Zyrtec] fluticasone propionate * Allergy SYNCOPE Verified 09/08/16 21:50 [From Flonase] codeine AdvReac Mild NAUSEA Verified 09/08/16 21:50 Home Medications: Home Medication List Medication Instructions Recorded Confirmed Last Taken Type PRAVAstatin [Pravachol] 20 mg PO QHS 06/29/13 09/30/16 09/08/16 History Prasugrel [Effient] 10 mg PO DAILY 06/29/13 09/30/16 09/08/16 History Citalopram [Celexa] 40 mg PO DAILY 06/21/16 09/30/16 09/08/16 History Diazepam 5 mg PO DAILY 06/21/16 09/30/16 09/08/16 History Promethazine [Phenergan] 25 mg PO Q6H PRN PRN 06/21/16 09/30/16 09/08/16 History Budesonide/Formoterol Inhaler 2 puff INH RTBID 08/08/16 09/30/16 09/08/16 History [Symbicort 160/4.5 Microgm Inhaler] Iron Carbonyl/Ascorbic Acid 1 each PO BID #60 tablet 08/08/16 09/30/16 09/08/16 Rx [Icar-C] Loperamide [Imodium] 1 cap PO TID PRN PRN #60 capsule 08/08/16 09/30/16 09/08/16 Rx Magnesium Oxide [Mag-Ox] 800 mg PO BID #60 tablet 08/08/16 09/30/16 09/08/16 Rx Metoclopramide [Reglan] 10 mg PO Q6HR PRN 08/08/16 09/30/16 09/08/16 History Oxycodone HCl 5 mg PO PRN PRN 08/16/16 09/30/16 1 Day Ago History ~09/07/16 Hydrocodone/APAP 10 mg/325 mg 1 tab PO PRN PRN #14 tablet 08/18/16 09/30/16 1 Day Ago Rx [[place]-10] ~09/07/16 Budesonide/Formoterol Fumarate 2 puff INH BID 09/08/16 09/30/16 09/08/16 History [Symbicort 160-4.5 Mcg Inhaler] Diltiazem HCl [Diltiazem 24Hr ER] 180 mg PO DAILY 09/08/16 09/30/16 09/08/16 History Lidocaine/Hydrocortisone AC 09/08/16 09/08/16 09/08/16 History [Lidocaine-Hc 3-0.5% Cream] Pregabalin [Lyrica] 150 mg PO BID 09/08/16 09/30/16 09/08/16 History Aspirin [Adult Low Dose Aspirin EC] 81 mg PO DAILY 09/30/16 09/30/16 Unknown History Lactobacillus Rhamnosus GG 1 each PO BID #60 capsule 10/03/16 Unknown Rx [Culturelle] Vancomycin [Vancocin] 125 mg PO Q6H #44 capsule 10/03/16 Unknown Rx - History of Present Illness-ABD Nature of Presenting Problems: Patient is a 62 year old female who presents to the ED with left side abdominal pain. Patient state diarrhea, fever and chills. Patient states symptoms started 3 days ago. Patient states she has been burping and the burps smell like boiled eggs. Patient states history of colorectal cancer. Patient states last chemo was 1 year ago. Patient denies history of bowel obstructions. Patient states she is still passing gas. Abdominal Pain Onset Location: reports: LUQ, LLQ Pain Radiation: reports: no radiation Quality of Pain: reports: aching Severity in ED: reports: mild Onset/Duration: reports: 3 days ago Timing: reports: still present Activities at Onset: reports: light activity Modifying Factors: improves with: nothing Associated Symptoms: reports: diarrhea, fever/chills (fever and chills) Last BM: this morning Bruising or Bleeding Gums?: No Similar Symptoms Previously?: Yes Recently seen or treated by another doctor?: No Review of Systems - Adult - REVIEW OF SYSTEMS - ADULT Constitutional: reports: chills, fever. denies: fatique Eyes: reports: no symptoms reported Ears, Nose, Mouth & Throat: reports: no symptoms reported Cardiovascular: reports: no symptoms reported Respiratory: reports: no symptoms reported Gastrointestinal: reports: abdominal pain (LUQ and LLQ), diarrhea. denies: nausea, vomiting Genitourinary: reports: no symptoms reported Musculoskeletal: reports: no symptoms reported Integumentary: reports: no symptoms reported Neurological: reports: no symptoms reported Psychiatric: reports: no symptoms reported Endocrine: reports: no symptoms reported Hematologic/Lymphatic: reports: no symptoms reported Allergic/Immunologic: reports: no symptoms reported All Other Systems: Reviewed and Negative Past History - Adult - PAST MEDICAL HISTORY-ADULT Review of Records: reports: Nursing Assessment Review, Medications Reviewed, Social history reviewed & non-contributory. Major Childhood Illnesses: reports: denies history Cardiovascular: reports: cardiac disease, CAD, HTN Respiratory: reports: asthma, COPD Gastrointestinal: reports: cancer Obstetrical/Gynecological: reports: denies history Genitourinary: reports: denies history Musculoskeletal: reports: denies history Neurological: reports: other (hx of syncope) Psychiatric: reports: anxiety Endocrine/Immune: reports: Diabetes Other Conditions: reports: denies history - PRIOR SURGERIES/PROCEDURES Surgical/Procedure History: reports: recent surgery (colon resection), colonoscopy, cardiac stent, BTL, tonsillectomy, other (total colon resection) - IMMUNIZATION STATUS Childhood Immunizations: See Nurse Assessment Flu Vaccine: See Nurse Assessment - FAMILY HISTORY Family History: reviewed, not pertinent - SOCIAL HISTORY Smoking: cigarettes, less than 1 pack/day Provider spent 3-5 mins advising pt. on dangers of tobacco.: Discussed manners to quit use, and f/u contacts for add'l counseling. Substance Use: denies Physical Exam-General - PHYSICAL EXAM-ADULT Initial Vital Signs Reviewed: Yes - CONSTITUTIONAL General Appearance: alert, no apparent distress - HEAD, EARS, NOSE, MOUTH & THROAT HENMT: other (dry mucous membranes) - RESPIRATORY Respiratory: chest non-tender, rhonchi (diffuse bilaterally) - CARDIOVASCULAR Cardiovascular: normal peripheral pulses, regular rate, rhythm - GASTROINTESTINAL (ABDOMEN) Abdominal Exam: soft, abnormal bowel sounds (hyperactive), tenderness (LUQ and LLQ), other (positive negative peritoneal signs) - MUSCULOSKELETAL Extremity: non-tender, normal inspection - SKIN Integumentary: normal color, normal turgor, warm/dry - NEUROLOGIC Neurologic: grossly normal - PSYCHIATRIC Psych/Mental Status: normal mood/affect, oriented x 3 Progress - PLAN OF CARE/RESULTS Progress/Plan/Lab Results: Vital Signs - 8 hr 05/04/18 12:16 Temperature 97.6 F Pulse Rate 106 H Respiratory Rate 20 Blood Pressure 149/85 O2 Sat by Pulse Oximetry 97 Laboratory Results - last 24 hr 05/04/18 05/04/18 12:24 12:24 WBC 23.36 H RBC 5.55 H Hgb 15.4 Hct 48.3 H MCV 87.0 MCH 27.7 MCHC 31.9 L RDW Std Deviation 15.0 H Plt Count 345 MPV 10.3 Immature Gran % (Auto) 0.5 Neut % (Auto) 53.4 Lymph % (Auto) 36.6 Mitchell % (Auto) 7.5 Eos % (Auto) 1.6 Baso % (Auto) 0.4 Immature Gran # (Auto) 0.11 H Neut # (Auto) 12.46 H Lymph # (Auto) 8.56 H Mitchell # (Auto) 1.76 H Eos # (Auto) 0.38 Baso # (Auto) 0.09 Sodium 136 Potassium 4.1 Chloride 94 L Carbon Dioxide 27 Anion Gap 15 BUN 17 Creatinine 0.8 Estimated GFR/1.73 m2 > 60 BUN/Creatinine Ratio 21 Glucose 154 H Calculated Osmolality 277 Calcium 9.7 Total Bilirubin 0.29 AST 22 ALT 23 Alkaline Phosphatase 114 H Total Protein 8.1 Albumin 4.6 Globulin 3.5 Albumin/Globulin Ratio 1.3 Amylase 40 Lipase 21 Orders Category Date Time Status Saline Loc DIRECTED Care 05/04/18 12:20 Active Saline Loc NOW Care 05/04/18 14:04 Active NPO Diet 05/04/18 12:20 Active CHEST-PORTABLE [RAD] Stat Exams 05/04/18 14:[address] ABD/PELVIS W/IV CONT ONLY [CT] Stat Exams 05/04/18 14:06 Ordered AMYLASE [CHEM] Stat Lab 05/04/18 12:24 Completed BLOOD CULTURE [BLDCUL] Stat Lab 05/04/18 14:04 Uncollected C DIFF TOXIN [STOOL] Stat Lab 05/04/18 14:04 Uncollected CBC WITH ELECTRONIC DIFF [HEME] Stat Lab 05/04/18 12:24 Completed CBC WITH ELECTRONIC DIFF [HEME] Stat Lab 05/04/18 14:04 Uncollected COMPREHENSIVE METABOLIC PANEL [CHEM] Stat Lab 05/04/18 12:24 Completed COMPREHENSIVE METABOLIC PANEL [CHEM] Stat Lab 05/04/18 14:04 Uncollected LACTATE, PLASMA [CHEM] Stat Lab 05/04/18 14:05 Uncollected LIPASE [CHEM] Stat Lab 05/04/18 12:24 Completed LIPASE [CHEM] Stat Lab 05/04/18 14:05 Uncollected MAGNESIUM [CHEM] Stat Lab 05/04/18 14:05 Uncollected OCCULT BLOOD SCREENING [STOOL] Stat Lab 05/04/18 14:05 Uncollected PRO B-NATRIURETIC PEPTIDE Stat Lab 05/04/18 14:05 Uncollected PROTIME WITH INR [COAG] Stat Lab 05/04/18 14:05 Uncollected TROPONIN T Stat Lab 05/04/18 14:05 Uncollected URINALYSIS W/POSS RFLX CULT [URINALYSIS] Stat Lab 05/04/18 12:20 Uncollected 0.9% Sodium Chloride Inj [Ns] 1,000 ml Med 05/04/18 14:06 Active IV 999 mls/hr Morphine Med 05/04/18 14:06 Discontinued 4 mg IV NOW ONE Ondansetron [Zofran] Med 05/04/18 14:06 Discontinued 4 mg IV NOW ONE EKG [EKG] Stat Ther 05/04/18 12:20 Ordered Result Diagrams: 05/04/18 12:24 05/04/18 12:24 - REASSESSMENT Reassessment #1 Time Reassessed: 16:44 (Patient meets sepsis criteria, though not severe sepsis, will give IV zosyn) Status: improving Reassessment Comment: Decreased pain at this time. - EKG 1 Time of EKG reading by physician:: 12:26 EKG Read and Signed by:: José Manuel Nieto EKG Interpretation (*Must complete 3 of following elements*): Abnormal Rate: 91 Rhythm: normal sinus rhythm MI Interval: normal Comments: cannot rule out inferior infarct, age undetermined - XRAY 1 XRAY Study: Chest Impression: See EMR Report (EXAM: CHEST-PORTABLE - 05/04/2018 HISTORY: upper abdominal pain TECHNIQUE: Portable chest COMPARISON: 01/30/2017 FINDINGS: Heart size is normal. The lungs appear clear. There is no pleural effusion or pneumothorax identified. There is mild thoracic dextroscoliosis noted. Central venous catheter remains in place. IMPRESSION: No evidence of acute disease. Electronically signed by Tawanda Carrillo 05/04/2018 2:22 PM 05/04/18 1422 Interpreting Physician: Tawanda Carrillo MD Dictated Date/Time: 05/04/18 1420 cc: José Manuel Nieto MD; [place] Mata) - CT/MRI 1 CT Study: Abdomen, Pelvis Impression: See EMR Report ( CT ABD/PELVIS W/IV CONT ONLY - 05/04/2018 INDICATION: colitis COMPARISON: 11/17/2016 FINDINGS: The lung bases are c lear and the heart size is normal. There is worsening, severe fatty change of the liver. There are small bilateral renal cysts. There is trace ascites. There is small bowel enteritis focally in the right lower quadrant. There has been near-total colectomy. Uterus is absent. Urinary bladder is normal. There are moderate degenerative changes of the spine. No acute or suspicious bony lesion. IMPRESSION: 1. Focal small bowel enteritis in the right lower quadrant. 2. Trace ascites. 3. Severe hepatic steatosis. This exam was performed using automated exposure control, adjustment of mA or kV according to patient size, and/or use of iterative reconstruction technique Electronically signed by Kiko Flores 05/04/2018 3:43 PM 05/04/18 1543 Interpreting Physician: Kiko Flores MD Dictated Date/Time: 05/04/18 1537 cc: José Manuel Nieto MD; [place] Mata) - CONSULTS/PCP/HOSPITALIST Notification #1 *Consult/PCP/Hospitalist*: URI King Time Discussed: 16:47 Reason/Comments: admit to [facility] Consult Disposition: Admit Departure - Departure Date of Disposition Decision: 05/04/18 Time of Disposition Decision: 16:47 DIAGNOSIS: Sepsis without acute organ dysfunction, Enteritis, History of colon cancer Disposition: ADMITTED INPATIENT 09 Certified Medical Emergency: Emergent Condition: Fair Referrals and Follow-Ups: D[place] Mata [Primary Care Provider] - - Critical Care Note This patient required my direct & personal management of CC.: No Attestation - Physician/ DENIS Attestation Patient care was provided by Advanced Practice Provider:: No The physician spent face to face time with patient:: Yes Advanced Practice Provider documentation review:: Supervising physician onsite a nd consulted in the evaluation and care of this patient. The physician did have a face to face encounter with the patient. This chart was documented by the indicated scribe, (Toshia Sherwood Scribe) and accurately reflects the services I performed and decisions made by me, José Manuel Nieto MD, as attested by the provider's signature.
[2018-05-04] MEDS ORDERED: DUONEB (A & A) INH PRN (17:31)
[2018-05-04] MEDS: PROTONIX IV SCH (18:00)
[2018-05-04 18:15] LABS: URINE SOURCE CLEAN CATCH
[2018-05-04 18:22] LABS: BILIRUBIN URINE NEGATIVE (NEGATIVE); BLOOD URINE NEGATIVE (NEGATIVE); COLOR YELLOW; GLUCOSE URINE NEGATIVE (NEGATIVE); KETONE URINE NEGATIVE (NEGATIVE); LEUKOCYTES URINE TRACE (NEGATIVE); NITRITE URINE NEGATIVE (NEGATIVE); PH URINE 5.5; PROTEIN URINE NEGATIVE (NEGATIVE); SP GRAVITY URINE > 1.050; TURBIDITY URINE CLEAR (CLEAR); UR EPITHELIAL CELLS <10 /HPF (<10); URINE BACTERIA 2+ /HPF; URINE RBC <10 /HPF (<10); URINE WBC <10 /HPF (<10); UROBILINOGEN URINE NORMAL (NORMAL)
[2018-05-04 18:26] LABS: FREE T4 1.17 ng/dL (0.93-1.70); TSH 1.74 uIUmL (0.27-4.20)
[2018-05-04 18:36] LABS: UR AMPHETAMINES QUAL NONE DETECTED (NONE DETECT); UR BARBITUATES QUAL NONE DETECTED (NONE DETECT); UR BENZODIAZEPIN QUAL PRESUMPTIVE POSITIVE (NONE DETECT); UR CANNABINOIDS QUAL NONE DETECTED (NONE DETECT); UR COCAINE QUAL NONE DETECTED (NONE DETECT); UR METHADONE QUAL NONE DETECTED (NONE DETECT); UR OPIATES QUAL PRESUMPTIVE POSITIVE (NONE DETECT); UR OXYCODONE QUAL NONE DETECTED (NONE DETECT); UR PCP QUAL NONE DETECTED (NONE DETECT)
--- NOTE | 2018-05-04 18:39 | HISTORY AND PHYSICAL ---
PRIMARY CARE PHYSICIAN: Dr. Denton Mata. DRAG SAWYER: Dr. Soto. CHIEF COMPLAINT: Abdominal pain. HISTORY OF PRESENT ILLNESS: Ms. Whitney is a 62-year-old female with multiple medical problems including coronary artery disease, colon cancer status post colectomy, history of C difficile, and COPD, who presents with 3 days of abdominal pain and diarrhea. Earlier this week she started noticing increased frequency of bowel movements with much looser stools, progressing to diarrhea multiple times a day. She also reports a low-grade fever and nausea and vomiting. She denies hematemesis or melena, and she denies any hematochezia. She came to the ER today for evaluation and was noted to have a white count of 23,000 with normal hemodynamics and normal lactic acid. Abdomen and pelvis CT did show focal small bowel enteritis in the right lower quadrant with trace ascites and severe hepatic steatosis. Will admit her for further treatment and evaluation. PAST MEDICAL HISTORY: Colorectal cancer status post total colectomy with ileorectal anastomosis, coronary artery disease status post [place] and stenting, COPD, fibromyalgia, chronic pain on chronic narcotic therapy, history of iron-deficiency anemia, borderline diabetes mellitus, nicotine dependence, history of C difficile colitis in the past. PAST SURGICAL HISTORY: Colectomy, hysterectomy, breast biopsy, tonsillectomy. SOCIAL HISTORY: She smokes half a pack a day. Denies alcohol or drug use. Her sister is with her at the bedside. FAMILY HISTORY: Noncontributory. REVIEW OF SYSTEMS: Ten-point review of systems obtained and found to be negative with the exception of the HPI. ALLERGIES: Sulfa, glucocorticoids, Zithromax, Zyrtec, Flonase, codeine HOME MEDICATIONS: Yet to be compiled. PHYSICAL EXAMINATION: VITAL SIGNS: Blood pressure 126/81, heart rate 72, respiratory rate 17, O2 saturation 96% on nasal cannula, temperature 97.6. GENERAL: This is a chronically ill, disheveled-appearing 62-year-old female lying in the hospital bed in no acute distress. NEUROLOGIC: She is somewhat lethargic but answers orientation questions correctly and follows commands without focal deficits. HEENT: Head is atraumatic and normocephalic. Her pupils are equal, round, and reactive to light. Oral mucosa is a bit dry. Trachea is midline. There is no JVD. CHEST: Scattered rhonchi bilaterally. CV: Regular rate and rhythm. S1 and S2 noted. No murmurs. GI: Diffuse tenderness to palpation overall. The abdomen is soft with hypoactive bowel sounds. EXTREMITIES: No edema. Pulses 1+ bilaterally DIAGNOSTIC DATA: Abdomen and pelvis CT shows small bowel focal enteritis in the right lower quadrant, trace ascites, and severe hepatic steatosis. Chest x-ray is negative LABORATORY DATA: WBCs 23.36, hemoglobin 15.4, hematocrit 48.3, platelet count 345, INR 0.85. Sodium 136, potassium 4.1, chloride 94. CO2 is 27, anion gap 15, BUN 17, creatinine 0.8, glucose 154. AST 22, ALT 23, alkaline phosphatase 114. Protein 8.1. Amylase 40, lipase 21, lactic acid 2.0. ASSESSMENT/PLAN: 1. Enteritis: Will check stool studies. Check blood cultures and continue broad-spectrum antibiotics which were started in the ER. Will consult gastroenterology and lightly hydrate. Will also check inflammatory markers. 2. Chronic obstructive pulmonary disease: She does have productive green sputum per report. We will add breathing treatments and continue with antibiotics. She is allergic to glucocorticoids. Chest x-ray does not have any abnormalities. Will check an ABG as well. 3. Coronary artery disease, stable. Continue home medications once reconciled. Make sure that EKG is on the chart. She denies any current chest pain. 4. Borderline diabetes mellitus. She reports she had a hemoglobin A1c done at her primary care physician's office last week, which was 6. We will put her on a diabetic diet once cleared by gastroenterology. 5. History of colon cancer. She reports being cancer free for the last year. Dr. Alford was her oncologist. Will have her follow up with him as an outpatient unless anything changes while she is here. 6. Nicotine dependence. We have advised the patient highly against the use of cigarettes. Will write for a nicotine patch and continue cessation education. 7. Deep venous thrombosis prophylaxis with sequential compression devices. 8. Further recommendations to follow. Dictated by URI Landers for Wolf Lehman MD cc: URI Landers MD Neil Yeager, MD I agree with the components of history, physical and assessment. I went to the bedside and evaluated the patient. In brief, Ms. Whitney is a 62 years old lady with previous history of colon cancer s/p colectomy who comes in with acute gastroenteritis. At the time of my evaluation, she is c/o abdominal pain. Her vitals suggests no tachycardia or no hypotension. On physical, she has hypogastric and bilateral lower quadrant tenderness. I will admit her for IV fluids, IV antibiotics. I will follow up with stool studies and get a GI consult. ANUSHKA
[2018-05-04] MEDS: DUONEB (A & A) INH SCH ×2 (19:10→23:10)
[2018-05-05] MEDS: DUONEB (A & A) INH SCH ×6 (03:20→23:05)
[2018-05-05 07:07] LABS: BASO# 0.04 X1000 (0.0-0.2); BASO% 0.4 % (0.0-0.8); EOS# 0.23 X1000 (0.0-0.7); EOS% 2.1 % (0.0-10.0); HEMATOCRIT 40.5 % (37.0-47.0); HEMOGLOBIN 12.8 g/dL (12.0-16.0); IMM GRAN# 0.03 X1000 (0.0-0.04); IMM GRAN% 0.3 % (0.0-0.5); LYMPH# 4.42 X1000 (1.2-3.4); LYMPH% 40.3 % (20.5-51.1); MCH 27.8 PG (27-31); MCHC 31.6 g/dL (33-37); MCV 87.9 FL (81-99); MONO# 0.85 X1000 (0.11-0.59); MONO% 7.7 % (1.7-9.3); MPV 10.2 FL (7.4-10.4); NEUT# 5.41 X1000 (1.4-6.5); NEUT% 49.2 % (42.2-75.2); PLT 223 X1000 (130-400); RBC 4.61 XMIL (4.2-5.4); RDW 14.9 % (11.5-14.5); WBC 10.98 X1000 (4.8-10.8)
[2018-05-05 07:21] LABS: AGAP 11; BUN 14 mg/dL (8-22); CALCIUM 8.9 mg/dL (8.8-10.2); CHLORIDE 104 mmol/L (98-107); COSMO 283; CREATININE 0.9 mg/dL (0.5-0.9); ESTIMATED GFR > 60; GLUCOSE 126 mg/dL (70-104); POTASSIUM 3.7 mmol/L (3.5-5.1); SODIUM 141 mmol/L (136-145); TCO2 26 mmol/L (25-35)
[2018-05-05] MEDS ORDERED: NS 1,000 ML IV ONE ×2 (07:46→10:30)
[2018-05-05] MEDS: KLOR-CON PO SCH ×3 (10:33→17:30)
[2018-05-05] MEDS: ZOSYN 3.375 GM in NS 50 ML IV SCH ×3 (10:33→22:08)
[2018-05-05] MEDS: CULTURELLE PO SCH ×2 (10:34→22:10)
[2018-05-05] MEDS: ASPIRIN PO SCH (10:34)
[2018-05-05] MEDS: MAG-OX PO SCH ×2 (10:34→22:10)
--- NOTE | 2018-05-05 11:00 | PROGRESS NOTE ---
DATE: 05/05/2018 INTERVAL HISTORY: Patient had a bowel movement yesterday which to her did not look bloody and the tests were sent. C difficile antigen is positive, which at least suggests C differential colonization toxin was negative. SUBJECTIVE: Patient is feeling a little better than yesterday. She is still having a lot of pain in her abdomen. We discussed about the findings. I answered all of her questions. VITALS: Currently, temperature of 98.7 degrees, pulse of 78 per minute, blood pressure 130/55, saturating 94 to 96 percent on 2 L nasal cannula. PHYSICAL EXAMINATION: General: Appears in mild distress because of abdominal pain. HEENT: Oral cavity is moist. Lungs: Air entry bilaterally equal. No wheeze, rhonchi or crackles. Cardiovascular: S1, S2 normal. No murmur, rub, or gallop. Abdomen: Soft. She has tenderness in hypogastric and bilateral lower quadrant regions. Active bowel sounds. No hepatosplenomegaly. Extremities: No lower extremity edema. Neurologic: Alert and oriented x3. LABS: Suggestive of improving leukocytosis, stable hemoglobin, hematocrit, and platelet count. Normal electrolytes and kidney function. IMAGING: No new imaging data. Abdominal and pelvis CT yesterday had suggested left-sided, right- sided enteritis. EKG had suggested normal sinus rhythm. She did have some inferolateral concave ST segments which were present on previous EKGs as well. Her troponin was unremarkable. ASSESSMENT AND PLAN: 1. Sepsis due to acute gastroenteritis. Give patient 1 more liter of intravenous fluid and continue intravenous fluid resuscitation with normal saline. Currently, blood pressure in acceptable range. 2. Acute gastroenteritis. Continue patient on intravenous Zosyn. I will appreciate Gastroenterology recommendation. Follow up with final stool studies, though her Clostridium difficile antigen is positive, toxin is negative, and she did have prior history of Clostridium difficile colitis, so this test may only represent Clostridium difficile colonization. I will appreciate Gastroenterology recommendation further. 3. Acute gastrointestinal bleeding, occult with positive stool occult blood test. She does not have hemodynamic instability. I will continue pantoprazole 40 mg intravenous every 24 hours. She may not need any urgent esophagogastroduodenoscopy or colonoscopy. 4. Hypokalemia, hypomagnesemia being repleted. 5. History of coronary artery disease and percutaneous intervention 5 years ago. Start patient on aspirin. I am awaiting further medication reconciliation to see if she was taking any other medications. 6. History of chronic obstructive pulmonary disease, iron deficiency anemia and chronic pain. Continue albuterol ipratropium nebulization. Currently her hemoglobin is stable. Plan of care was discussed with her. All of her questions have been answered. Yesterday, I discussed plan of care with the patient's sister at bedside, who is supposedly surrogate decision maker and all of her questions have been answered as well. cc: Wolf Lehman MD
[2018-05-05] MEDS: FLAGYL 500 MG/NS 500 MG/100 ML IVPB IV SCH ×2 (13:02→17:30)
[2018-05-05] MEDS ORDERED: TYLENOL PO PRN (15:00)
[2018-05-05] MEDS ORDERED: CALMOSEPTINE OINTMENT TOP PRN (17:01)
[2018-05-05] MEDS: SODIUM CHLORIDE 0.9% INJ SCH (17:30)
[2018-05-05] MEDS: PROTONIX IV SCH (17:30)
--- NOTE | 2018-05-05 21:17 | GASTROENTEROLOGY CONSULTATION ---
DATE: 05/05/2018 ATTENDING PHYSICIAN: Dr. Lehman. REASON FOR CONSULTATION: Abdominal pain. HISTORY OF PRESENT ILLNESS: Ms. Whitney is a 62-year-old female who was admitted on 05/04/2018 for abdominal pain in the periumbilical region and diarrhea. According to the patient she was having about 15 bowel movements a day for the last few days. She denies any blood in the stools or melena. She denies any vomiting blood. On admission, her white count was 23,[address] scan showed evidence of small- bowel enteritis in the right lower quadrant, with trace ascites and severe hepatic steatosis. The patient had stool studies which were positive for C. difficile antigen, and she was started on Flagyl. PAST MEDICAL HISTORY: 1. Colon cancer, status post total colectomy with ileorectal anastomosis. 2. Coronary artery disease, status post [place] and stent. 3. COPD. 4. Fibromyalgia. 5. Chronic pain, on chronic narcotics. 6. History of iron-deficiency anemia. 7. Borderline diabetes mellitus. 8. Nicotine dependence. 9. History of C. difficile in the past. PAST SURGICAL HISTORY: Colectomy, hysterectomy, breast biopsy, tonsillectomy, colonoscopy with Dr. Soto. SOCIAL HISTORY: She smokes half a pack a day. Denies history of alcohol or drug abuse. FAMILY HISTORY: Noncontributory. ALLERGIES: Sulfa, glucocorticoids, Zithromax, Zyrtec, Flonase, codeine. REVIEW OF SYSTEMS: Denies any current fevers, rigors or chills, chest pain, shortness of breath, dyspnea. Denies any vomiting blood or passing blood in the stools. Does complain of diarrhea and abdominal pain. Denies any neurological complaints. Does have history of arthritis and she is on chronic narcotics. MEDICATIONS: 1. Her medications in the hospital include albuterol/ipratropium. 2. Aspirin. 3. Flagyl 5 mg IV q.8 hours. 4. Culturelle 1 capsule p.o. b.i.d. 5. Magnesium oxide 4 mg p.o. b.i.d. 6. Protonix 40 mg IV once daily. 7. Potassium chloride 40 mg every 4 hours. 8. Zosyn IV q.6 hours. 9. She is currently NPO. We will start her on clear liquids. PHYSICAL EXAMINATION: Temperature 97.8 degrees, pulse of 105, respiratory rate 22, blood pressure 156/83, saturating Body weight of 152 pounds, BMI 27.8 kg/m2. Generally Ms. Whitney is lying in bed, in no acute distress. HEENT: No pallor. No icterus. Pupils equal and reactive to light. Neck is supple. Abdomen: Discomfort in the periumbilical region. Mild protuberance. Mild distention noted. No rebound or guarding. Extremities: No cyanosis or clubbing. Neurologic: She is alert, awake, oriented x3. LABORATORY DATA: Hemoglobin and hematocrit are 12.8 and 40.5, white count of 10.98, platelet count of 223,000, MCV of 87.9. Her admission white count was 23.36. INR 0.85, PT of 12.3. Sodium 141, potassium 3.7, chloride 104, bicarbonate 26, anion gap 11, BUN of 14, creatinine 0.9, glucose of 126, calcium 8.9, magnesium 1.6. Total bilirubin is 0.29, AST 22, ALT 23, alkaline phosphatase 114, total protein is 8.1, albumin of 4.6, amylase of 40, lipase of 21. Plasma lactate of 2. Folate of 29. TSH 1.74. Urinalysis showing trace leukocytes. Toxicology screen positive for opioids and benzodiazepines. Her urine culture is currently pending. Her stool for white cells are showing few. Her ova and parasites is pending. Stool culture preliminary is showing no enteric pathogens. Her C. difficile toxin is negative. C. difficile antigen is positive. Stool for occult blood is positive. Blood cultures x2 were drawn yesterday. They are currently pending. DIAGNOSTIC DATA: CT scan abdomen and pelvis as described in HPI. IMPRESSION AND PLAN: 1. Abdominal pain and diarrhea with dehydration and electrolyte imbalance, likely secondary to gastroenteritis. We will continue on clear liquid diet. She has been on intravenous fluids. The primary care team is replacing electrolytes. 2. The patient has a prior history of Clostridium difficile colitis, and she has a positive Clostridium difficile antigen but negative toxin. The patient does not have a colon. She has ileorectal anastomosis, and she is status post total colectomy for multiple polyps and colon cancer. We will empirically treat her treat her with Flagyl 500 mg intravenously q.8 hours, which can be transitioned to oral medication on discharge for a total of 10 days. We will keep her on Culturelle 1 capsule p.o. b.i.d. for 6 weeks. 3. Positive Hemoccult. We will continue to watch hemoglobin and hematocrit. 4. Chronic smoker. Patient counseled to quit smoking. 5. Gastrointestinal prophylaxis with proton pump inhibitors. 6. Chronic obstructive pulmonary disease. The patient will continue nebulizer treatment. 7. History of coronary disease and percutaneous intervention 5 years ago. The patient will continue to be observed closely over the next 24-48 hours. The above plan was discussed with the patient and all questions answered. Please call us with any questions. cc: Tal Devlin MD Zz Unknown Wolf Lehman MD MTDD
[2018-05-06] MEDS: FLAGYL 500 MG/NS 500 MG/100 ML IVPB IV SCH ×3 (00:32→16:21)
[2018-05-06] MEDS: DUONEB (A & A) INH SCH ×6 (03:10→23:00)
[2018-05-06] MEDS: ZOSYN 3.375 GM in NS 50 ML IV SCH ×2 (04:20→09:11)
[2018-05-06 07:50] LABS: BASO# 0.04 X1000 (0.0-0.2); BASO% 0.6 % (0.0-0.8); EOS# 0.12 X1000 (0.0-0.7); EOS% 1.7 % (0.0-10.0); HEMATOCRIT 36.8 % (37.0-47.0); HEMOGLOBIN 11.4 g/dL (12.0-16.0); LYMPH# 3.08 X1000 (1.2-3.4); LYMPH% 44.3 % (20.5-51.1); MCH 27.2 PG (27-31); MCV 87.8 FL (81-99); MONO# 0.44 X1000 (0.11-0.59); MONO% 6.3 % (1.7-9.3); MPV 10.3 FL (7.4-10.4); NEUT# 3.28 X1000 (1.4-6.5); NEUT% 47.1 % (42.2-75.2); PLT 206 X1000 (130-400); RBC 4.19 XMIL (4.2-5.4); RDW 14.6 % (11.5-14.5); WBC 6.96 X1000 (4.8-10.8)
[2018-05-06 08:36] LABS: AGAP 13; BUN 8 mg/dL (8-22); CALCIUM 8.6 mg/dL (8.8-10.2); CHLORIDE 103 mmol/L (98-107); COSMO 280; CREATININE 0.8 mg/dL (0.5-0.9); ESTIMATED GFR > 60; GLUCOSE 147 mg/dL (70-104); POTASSIUM 4.3 mmol/L (3.5-5.1); SODIUM 140 mmol/L (136-145); TCO2 24 mmol/L (25-35)
[2018-05-06] MEDS: CULTURELLE PO SCH ×2 (09:10→22:06)
[2018-05-06] MEDS: MAG-OX PO SCH ×2 (09:10→22:08)
[2018-05-06] MEDS: ASPIRIN PO SCH (09:10)
[2018-05-06] MEDS: CELEXA PO SCH (11:59)
[2018-05-06] MEDS: BUSPAR PO SCH ×2 (13:28→16:57)
[2018-05-06] MEDS: NORCO-10 PO SCH ×3 (13:28→22:06)
[2018-05-06] MEDS: PROTONIX IV SCH (16:56)
[2018-05-06] MEDS: LEVAQUIN PO SCH (16:56)
[2018-05-06] MEDS: SODIUM CHLORIDE 0.9% INJ SCH (16:57)
--- NOTE | 2018-05-06 17:00 | PROGRESS NOTE ---
DATE: 05/06/2018 Interval history. No acute events. The patient has been tolerating diet without any nausea, vomiting. She had loose bowel movement. Denies any more abdominal pain which is significantly better. At the time of my evaluation we discussed about starting her home medication, changing antibiotics and possible discharge in next 24 to 48 hours if she tolerates advancement of diet. VITALS: Temperature 97.9 degrees, pulse 73, respiratory 16, blood pressure 148/76, saturating 94% on room air. PHYSICAL EXAMINATION: General: Does not appear in any acute distress. Oral cavity is moist. Air entry bilaterally equal. No wheeze, rhonchi, crackles. S1, S2 normal. No murmur, rub, or gallop. Abdomen: Soft. Mild tenderness in hypogastric region which is improved since presentation. No hepatosplenomegaly. No lower extremity edema. Neurologic: She is alert, oriented x3. LABS: Suggestive of resolution of leukocytosis, normocytic anemia, normal platelet count, normal electrolytes and normal kidney function. Microbiological data. Urine culture is growing gram-negative carlos. Stool had few WBCs. C difficile analysis however was negative for toxin, positive for antigen. ASSESSMENT AND PLAN: 1. Sepsis due to acute gastroenteritis currently improved. This could be viral or bacterial gastroenteritis. She previously had total colectomy with ileorectal anastomosis. Though Clostridium difficile antigen is positive it could be chronic colonization since the patient had a previous history of Clostridium difficile colitis. The plan is to change her antibiotics to levofloxacin and continue Flagyl. She will complete a total of 10 days course. Continue to advance diet to GI soft. Stool studies have been unremarkable mostly. 2. Acute gastrointestinal bleeding with positive fecal occult blood test. Her hemoglobin, hematocrit has been acceptable range. Continue pantoprazole and she should get outpatient EGD, colonoscopy. 3. acute cystitis: Continue current levaquin. Follow up final urine culture results. 3. Electrolyte abnormalities for hypokalemia, hypomagnesemia are repleted. For history of coronary artery disease and percutaneous intervention 5 years ago continue patient on aspirin and colesevelam. 4. History of anxiety. Continue patient on home buspirone. 5. History of chronic pain. Continue home gabapentin, diazepam, citalopram, pregabalin and Normal. 6. History of chronic obstructive pulmonary disease. Continue albuterol ipratropium nebulization and Symbicort. 7. Disposition. If patient continues to do better my plan is to discharge her home tomorrow. Plan of care discussed with her. All of her questions been answered. cc: Wolf Lehman MD MTDD
--- NOTE | 2018-05-06 17:25 | GASTROENTEROLOGY PROGRESS NOTE ---
DATE: 05/06/2018 SUBJECTIVE: Resting in bed. She continues to have diarrhea, she had 8 bowel movements today. At home she takes Welchol 625 mg 3 tablets p.o. b.i.d. which helps keep her bowels under control, she has history total colectomy, ileorectal anastomosis, she does have chronic diarrhea. VITALS: 98.3 degrees, pulse of 70, respiratory 16, blood pressure 143/77, saturating 97% room air.General Appearance: Moderately nourished, moderately built lying in bed in no acute distress. HEENT: Mild pallor, no icterus. Pupils equal, reactive to light. Neck: Supple. Abdomen: Mild protuberant better than yesterday, distention is improved, no guarding, rebound. Extremities: No cyanosis, clubbing. Neuro: She is alert, awake, oriented. LABS: Hemoglobin and hematocrit 11.4 and 36.8, white count of 6.96, platelet count of 236,000, sodium 140, potassium 4.3, chloride 103, bicarb 24, anion gap 13, BUN of 8 , creatinine 0.2, glucose of 147, calcium is 8.6, magnesium 1.7. IMPRESSION AND PLAN: 1. Abdominal pain and diarrhea. She has positive Clostridium difficile antigen, she has been started on intravenous Flagyl 500 mg IV q.8 hours, she will need be on Flagyl for total of 10 days so will keep her on Culturelle 1 capsule p.o. b.i.d. White count improved after starting Flagyl . 2. History of colon cancer status post total colectomy, ileorectal anastomosis, chronic diarrhea. Will restart her Welchol 625 mg 3 tablets p.o. b.i.d. with meals. 3. Gastrointestinal prophylaxis PPIs. 4. Chronic smoker patient counseled quit smoking. 5. Chronic obstructive pulmonary disease, patient will continue nebulizer treatment. 6. History of coronary disease status post percutaneous intervention 5 years ago aware. 7. Above plan of care discussed the patient and all questions answered. Please call us with any further questions. cc: MD Dr. Tavo Boudreaux
[2018-05-06] MEDS: SYMBICORT 160/4.5 MICROGM INHALER INH SCH (19:00)
[2018-05-06] MEDS ORDERED: WELCHOL PO SCH (21:00)
[2018-05-06] MEDS ORDERED: NEURONTIN PO SCH (21:00)
[2018-05-06] MEDS: LYRICA PO SCH (22:06)
[2018-05-06] MEDS: WELCHOL PO SCH (22:08)
[2018-05-06] MEDS: VALIUM PO SCH (22:08)
[2018-05-07] MEDS: FLAGYL 500 MG/NS 500 MG/100 ML IVPB IV SCH ×2 (01:02→09:37)
[2018-05-07] MEDS: DUONEB (A & A) INH SCH ×3 (05:36→11:37)
[2018-05-07] MEDS: SYMBICORT 160/4.5 MICROGM INHALER INH SCH (07:36)
[2018-05-07 08:14] LABS: BASO# 0.07 X1000 (0.0-0.2); BASO% 0.8 % (0.0-0.8); EOS% 2.2 % (0.0-10.0); HEMATOCRIT 40.2 % (37.0-47.0); HEMOGLOBIN 12.9 g/dL (12.0-16.0); IMM GRAN# 0.04 X1000 (0.0-0.04); IMM GRAN% 0.4 % (0.0-0.5); LYMPH# 3.68 X1000 (1.2-3.4); LYMPH% 39.6 % (20.5-51.1); MCH 27.7 PG (27-31); MCHC 32.1 g/dL (33-37); MCV 86.5 FL (81-99); MONO# 0.71 X1000 (0.11-0.59); MONO% 7.6 % (1.7-9.3); MPV 10.6 FL (7.4-10.4); NEUT# 4.59 X1000 (1.4-6.5); NEUT% 49.4 % (42.2-75.2); PLT 232 X1000 (130-400); RBC 4.65 XMIL (4.2-5.4); RDW 14.8 % (11.5-14.5); WBC 9.29 X1000 (4.8-10.8)
[2018-05-07 08:25] LABS: AGAP 14; BUN 7 mg/dL (8-22); CALCIUM 9.7 mg/dL (8.8-10.2); CHLORIDE 103 mmol/L (98-107); COSMO 287; CREATININE 0.9 mg/dL (0.5-0.9); ESTIMATED GFR > 60; GLUCOSE 132 mg/dL (70-104); MAGNESIUM 1.7 mg/dL (1.5-2.7); POTASSIUM 4.4 mmol/L (3.5-5.1); SODIUM 144 mmol/L (136-145); TCO2 27 mmol/L (25-35)
[2018-05-07] MEDS ORDERED: CENTRUM TABLET PO SCH (09:00)
[2018-05-07] MEDS: VALIUM PO SCH (09:34)
[2018-05-07] MEDS: NORCO-10 PO SCH ×2 (09:35→13:53)
[2018-05-07] MEDS: MAG-OX PO SCH (09:36)
[2018-05-07] MEDS: LEVAQUIN PO SCH (09:36)
[2018-05-07] MEDS: WELCHOL PO SCH (09:36)
[2018-05-07] MEDS: CELEXA PO SCH (09:36)
[2018-05-07] MEDS: BUSPAR PO SCH (09:36)
[2018-05-07] MEDS: ASPIRIN PO SCH (09:36)
[2018-05-07] MEDS: CULTURELLE PO SCH (09:37)
[2018-05-07] MEDS: LYRICA PO SCH (09:49)
--- NOTE | 2018-05-07 10:01 | GASTROENTEROLOGY PROGRESS NOTE ---
DATE: 05/07/2018 SUBJECTIVE: She is resting in bed. She is feeling better. Diarrhea is improved OBJECTIVE: Vital signs: Temperature 97.9, pulse of 68, respiratory rate 16, blood pressure 123/60, saturating 98% room air. General: Ms. Whitney is lying in bed in no acute distress. HEENT: No pallor. No icterus. Neck: Supple. Abdomen: Soft, nondistended. Mild discomfort. No rebound or guarding. Extremities: No cyanosis, clubbing. Neurologic: She is alert, awake, oriented. LABORATORY DATA: Hemoglobin and hematocrit is 12.9 and 40.2, white count 9.9, platelet count of 232,000. Sodium 142, potassium 4.4, chloride 103, bicarb 27, anion gap of 14, BUN of 7, creatinine 0.9, glucose of 132, calcium 9.7, magnesium 1.7 Urine culture showed Enterobacter aerogenes. Her stool studies showed few WBCs and C. difficile antigen positive. Stool for occult blood was also positive. Blood culture negative after 48 hours IMPRESSION AND PLAN: 1. C.diff positive antigen. This could be chronic colonization. The patient has leukocytosis and after treating with Flagyl, her leukocytosis improved. 2. History of chronic diarrhea which worsened recently. She is status post total colectomy for colon cancer. She has ileorectal anastomosis. She was started on Welchol 625 mg 3 tablets p.o. b.i.d. with meals and has improved diarrhea. 3. Urinary tract infection. She is on Levaquin. 4. Electrolyte imbalance, being treated by the primary care team. 5. Anxiety, aware. 6. History of chronic pain. She is on home gabapentin, diazepam, citalopram, pregabalin, and [place]. 7. History of chronic obstructive pulmonary disease. She will continue albuterol ipratropium nebulizer treatment. 8. Gastrointestinal prophylaxis, proton pump inhibitors. We will continue on probiotics, Culturelle 1 capsule p.o. b.i.d. for 6 week. The above plans were discussed with the patient and all questions answered. Please call us with any further questions. We will sign off at this time. cc: MD Dr. Charles Boudreaux
[2018-05-07 11:54] VITALS: BP 117/63
--- NOTE | 2018-05-07 18:22 | DISCHARGE SUMMARY ---
ADMISSION DATE: 05/04/2018 DISCHARGE DATE: 05/07/2018 DISCHARGE DIAGNOSES: 1. Sepsis due to acute gastroenteritis. 2. Acute gastroenteritis. 3. Acute gastrointestinal bleed with positive fecal occult blood test without active bleeding. 4. Acute cystitis. 5. Enterobacter infection. 6. Suspected Clostridium difficile colonization. 7. Hypokalemia, hypomagnesemia. OTHER DIAGNOSES: 1. History of chronic obstructive pulmonary disease without any acute exacerbation. 2. History of coronary artery disease with percutaneous intervention about in year 2012. 3. History of prediabetes. 4. History of colon cancer status post total colectomy with ileorectal anastomosis. 5. History of nicotine and tobacco abuse. 6. History of fibromyalgia. 7. History of chronic pain on chronic narcotic therapy. 8. History of iron deficiency anemia, following up with oncologist for an effusion. 9. History of Clostridium difficile colitis in the past. DISCHARGE MEDICATIONS: Gabapentin 300 mg at nighttime, metoclopramide 10 mg q.6 hours, aspirin 81 mg daily, buspirone 10 mg t.i.d., diazepam 5 mg b.i.d., diltiazem 180 mg daily, lidocaine hydrocortisone topical cream at the site of pain, pregabalin 150 mg p.o. b.i.d., hydrocodone APAP 10 mg 325 mg 1 tablet 4 times a day, folic acid multivitamin 1 tablet daily, Promethazine 25 mg p.o. q.6 hours, Symbicort 2 puffs inhaled routine b.i.d., colesevelam or Welchol 625 mg p.o. b.i.d., lactobacillus 1 tablet p.o. b.i.d., 20 such tablets have been prescribed, metronidazole 500 mg t.i.d., 21 tablets have been prescribed, loperamide 10 mg p.o. t.i.d., levofloxacin 500 mg daily, 7 tablets have been prescribed. VITAL SIGNS AT THE TIME OF DISCHARGE: Temperature 97.7 degrees, pulse 77, respiratory rate 16, blood pressure 117/63, saturating 99% on room air. PHYSICAL EXAMINATION AT THE TIME OF DISCHARGE: General: The patient did not appear in any acute distress. Oral cavity is moist. Lungs: Air entry bilaterally equal. No wheeze, rhonchi or crackles. Cardiovascular: S1, S2 normal. No murmur, rub, or gallop. Abdomen: Soft. No tenderness. No hepatosplenomegaly. Extremities: No lower extremity edema. Neurologic: She was alert and oriented x3. LABORATORY DATA: Significant labs during hospital admission. On admission, she did have leukocytosis of 23,000, which had resolved to 9000 at the time of discharge. Her hemoglobin was stable during hospital admission, did not require any transfusion and platelet count was 230,000. She did have normal electrolytes and normal kidney function during hospital admission. MICROBIOLOGY: Urine culture was growing Enterobacter aerogenes, which was sensitive to levofloxacin. Stool was positive for fecal occult blood test and a few WBCs. It was positive for Clostridium difficile antigen and negative for Clostridium difficile toxin. Blood culture did not have any growth. IMAGING DURING HOSPITALIZATION: Chest x-ray on admission had suggested no evidence of acute disease. Abdomen and pelvis CT with IV contrast had suggested focal small bowel enteritis in the right lower quadrant, trace ascites and severe hepatic steatosis. CONSULTATION DURING HOSPITALIZATION: [employer]. HOSPITAL COURSE SUMMARY: Ms. Whitney is a 62-year-old lady with past medical history as mentioned above, who came in with chief complaints of increased frequency of bowel movements for about 4 to 5 days duration, which progresses to diarrhea multiple times a day. She also had subjective low-grade fever, nausea and vomiting without any hematemesis, melena or hematochezia. In the emergency room, she was found to have leukocytosis and tachycardia. She was admitted for acute gastroenteritis based on CT scan finding. HOSPITAL COURSE PROBLEM HANDY: 1. Sepsis due to acute gastroenteritis. She received intravenous fluids, intravenous antibiotic. Clostridium difficile antigen was positive and toxin was negative, and it was likely colonization equalization considering her prior history of Clostridium difficile colitis. She will be discharged on p.o. antibiotics. Though her fecal occult blood test was positive, she did not have any hemodynamic instability or drop in hemoglobin and did not require any GI intervention. She was advised to follow up with GI outpatient. 2. Acute cystitis with symptoms of increased frequency and lower abdominal pain with burning with Enterobacter UTI. She was treated with levofloxacin at the time of discharge. 3. Her electrolytes were largely within normal limits and were repleted. 4. For her coronary artery disease and PCI history about 5 years ago prior to presentation, she was continued on aspirin. Her troponins were negative during hospital admission, and EKG had detected normal sinus rhythm without new ST-T changes. 5. She was continued on her home medications for anxiety, chronic pain and COPD, which she did not have acute exacerbation of. DISPOSITION: The patient was advised to follow up with her regular doctor, considering she was on multiple medications for anxiety and pain, which may potentially interact with each other. She was advised to stop citalopram considering it may react with levofloxacin. TIME SPENT: More than 30 minutes were spent getting discharge summary on this patient. All of her questions have been answered satisfactorily. cc: Wolf Lehman MD
== END 2018-05-07 14:45 | disposition home or self-care (01) | DRG 872 ==
LOC: ED 12:15 → 3N 18:40
PROVIDERS: ATTEND Internal Medicine
CPT/HCPCS: 71010; 71045; 74177; 80048; 80053; 80101; 80301; 80307; 80324; 80345; 80346; 80353; 80358; 80361; 80365; 81001; 82150; 82270; 82746; 82948; 83605; 83690; 83735; 83880; 83992; 84439; 84443; 84484; 85025; 85610; 87040; 87045; 87046; 87077; 87088; 87177; 87186; 87205; 87324; 87449; 88313; 89055; 93005; 94640; 94761; 96361; 96365; 96375; 99285; A9270; C9113; G0431; G0434; G0479; G0480; J2270; J2405; J2543; J7030; Q9967; S0030; S0164; XXXXX

== ENCOUNTER 2018-12-02 13:41 | Inpatient (IN) ==
--- NOTE | 2018-12-02 14:01 | PROVIDER DOCUMENTATION ---
HPI-General Adult - General Chief Complaint: Constipation Stated Complaint: RETURN RECHECK THIS AM Time Seen by Provider: 12/02/18 14:00 Allergies/Adverse Reactions: Patient Allergies Allergy/AdvReac Type Severity Reaction Status Date / Time Sulfa (Sulfonamide Allergy Mild HIVES Verified 09/08/16 21:50 Antibiotics) azithromycin Allergy SYNCOPE Verified 09/08/16 21:50 [From Zithromax Z-Noel] cetirizine HCl * Allergy SYNCOPE Verified 09/08/16 21:50 [From Zyrtec] fluticasone propionate * Allergy SYNCOPE Verified 09/08/16 21:50 [From Flonase] Home Medications: Home Medication List Medication Instructions Recorded Confirmed Last Taken Type Diazepam 5 mg PO BID 06/21/16 11/21/18 11/18/18 21:00 History Promethazine [Phenergan] 25 mg PO Q6H PRN PRN 06/21/16 11/21/18 11/20/18 08:00 History Budesonide/Formoterol Inhaler 2 puff INH RTBID 08/08/16 11/21/18 11/20/18 15:00 History [Symbicort 160/4.5 Microgm Inhaler] Loperamide [Imodium] 1 cap PO TID PRN PRN #60 capsule 08/08/16 11/21/18 11/20/18 20:30 Rx Pregabalin [Lyrica] 150 mg PO BID 09/08/16 11/21/18 11/20/18 07:00 History Aspirin [Adult Low Dose Aspirin EC] 81 mg PO DAILY 09/30/16 11/21/18 11/20/18 07:00 History Hydrocodone/APAP 10 mg/325 mg 1 tab PO 4XDAY 05/05/18 11/21/18 11/20/18 15:00 History [[place]-10] Buspirone [Buspar] 10 mg PO TID 05/06/18 11/21/18 11/20/18 12:00 History Diltiazem HCl [Diltiazem 24Hr ER 180 mg PO DAILY 05/06/18 11/21/18 11/20/18 07:00 History (Xr)] Metoclopramide [Reglan] 10 mg PO Q6HR 05/06/18 11/21/18 11/19/18 20:00 History Lactobacillus Rhamnosus GG 1 ea PO BID #20 cap 05/07/18 11/21/18 11/20/18 07:00 Rx [Culturelle] Calcium Carbonate [Calcium] 600 mg PO DAILY 11/19/18 11/21/18 11/20/18 07:00 History Potassium Chloride 10 meq PO DAILY 11/19/18 11/21/18 11/20/18 07:00 History Hydrocodone/APAP 5 mg/325 mg 1 ea PO Q6H PRN PRN #10 tab 11/21/18 Unknown Rx [[place]-5] Past History - Adult - PAST MEDICAL HISTORY-ADULT Major Childhood Illnesses: reports: denies history Cardiovascular: reports: cardiac disease, CAD, HTN Respiratory: reports: asthma, COPD Gastrointestinal: reports: cancer Obstetrical/Gynecological: reports: denies history Genitourinary: reports: denies history Musculoskeletal: reports: denies history Neurological: reports: other (hx of syncope) Endocrine/Immune: reports: Diabetes Other Conditions: reports: denies history - PRIOR SURGERIES/PROCEDURES Surgical/Procedure History: reports: recent surgery (colon resection), colonoscopy, cardiac stent, BTL, tonsillectomy, other (total colon resection) - IMMUNIZATION STATUS Childhood Immunizations: See Nurse Assessment Flu Vaccine: See Nurse Assessment - FAMILY HISTORY Family History: reviewed, not pertinent Progress - PLAN OF CARE/RESULTS Progress/Plan/Lab Results: Vital Signs - 8 hr 12/02/18 13:48 Temperature 97.5 F L Pulse Rate 97 H Respiratory Rate 16 Blood Pressure 122/84 O2 Sat by Pulse Oximetry 96 Departure - Departure Referrals and Follow-Ups: Denton Mata [Primary Care Provider] -
--- NOTE | 2018-12-02 14:31 | PROVIDER DOCUMENTATION ---
HPI-Abdominal Pain/GI Problem - General Chief Complaint: N/V/D Stated Complaint: RETURN RECHECK THIS AM Time Seen by Provider: 12/02/18 14:00 Allergies/Adverse Reactions: Patient Allergies Allergy/AdvReac Type Severity Reaction Status Date / Time Sulfa (Sulfonamide Allergy Mild HIVES Verified 12/02/18 14:21 Antibiotics) azithromycin Allergy SYNCOPE Verified 12/02/18 14:21 [From Zithromax Z-Noel] cetirizine HCl * Allergy SYNCOPE Verified 12/02/18 14:21 [From Zyrtec] fluticasone propionate * Allergy SYNCOPE Verified 12/02/18 14:21 [From Flonase] Home Medications: Home Medication List Medication Instructions Recorded Confirmed Last Taken Type Diazepam 5 mg PO BID 06/21/16 11/21/18 11/18/18 21:00 History Promethazine [Phenergan] 25 mg PO Q6H PRN PRN 06/21/16 11/21/18 11/20/18 08:00 History Budesonide/Formoterol Inhaler 2 puff INH RTBID 08/08/16 11/21/18 11/20/18 15:00 History [Symbicort 160/4.5 Microgm Inhaler] Loperamide [Imodium] 1 cap PO TID PRN PRN #60 capsule 08/08/16 11/21/18 11/20/18 20:30 Rx Pregabalin [Lyrica] 150 mg PO BID 09/08/16 11/21/18 11/20/18 07:00 History Aspirin [Adult Low Dose Aspirin EC] 81 mg PO DAILY 09/30/16 12/02/18 11/20/18 07:00 History Hydrocodone/APAP 10 mg/325 mg 1 tab PO 4XDAY 05/05/18 11/21/18 11/20/18 15:00 History [[place]-10] Buspirone [Buspar] 10 mg PO TID 05/06/18 11/21/18 11/20/18 12:00 History Diltiazem HCl [Diltiazem 24Hr ER 180 mg PO DAILY 05/06/18 11/21/18 11/20/18 07:00 History (Xr)] Metoclopramide [Reglan] 10 mg PO Q6HR 05/06/18 11/21/18 11/19/18 20:00 History Calcium Carbonate [Calcium] 600 mg PO DAILY 11/19/18 11/21/18 11/20/18 07:00 History Potassium Chloride 10 meq PO DAILY 11/19/18 11/21/18 11/20/18 07:00 History Aripiprazole 1 tab PO DAILY 12/02/18 12/02/18 Unknown History Citalopram Hydrobromide 1 tab PO DAILY 12/02/18 12/02/18 Unknown History [Citalopram HBr] Isosorbide Mononitrate E.r. [Imdur] 30 mg PO DAILY 12/02/18 12/02/18 Unknown History - History of Present Illness-ABD Nature of Presenting Problems: Patient was treated and released by me earlier this morning. she felt better and wanted to go home. She tried to eat and became nausiated. Abdominal Pain Onset Location: reports: periumbilical Pain Radiation: reports: no radiation Quality of Pain: reports: aching Onset/Duration: reports: 3 days ago Timing: reports: still present Activities at Onset: reports: none Modifying Factors: improves with: eating Associated Symptoms: reports: nausea Review of Systems - Adult - REVIEW OF SYSTEMS - ADULT Constitutional: reports: no symptoms reported Eyes: reports: no symptoms reported Ears, Nose, Mouth & Throat: reports: no symptoms reported Cardiovascular: reports: no symptoms reported Respiratory: reports: no symptoms reported Gastrointestinal: reports: see HPI Genitourinary: reports: no symptoms reported Musculoskeletal: reports: no symptoms reported Integumentary: reports: no symptoms reported Neurological: reports: no symptoms reported Past History - Adult - PAST MEDICAL HISTORY-ADULT Review of Records: reports: Old Records Reviewed, Nursing Assessment Review Major Childhood Illnesses: reports: denies history Cardiovascular: reports: cardiac disease, CAD, HTN Respiratory: reports: asthma, COPD Gastrointestinal: reports: cancer Obstetrical/Gynecological: reports: denies history Genitourinary: reports: denies history Musculoskeletal: reports: denies history Neurological: reports: other (hx of syncope) Endocrine/Immune: reports: Diabetes Other Conditions: reports: denies history - PRIOR SURGERIES/PROCEDURES Surgical/Procedure History: reports: recent surgery (colon resection), colonoscopy, cardiac stent, BTL, tonsillectomy, other (total colon resection) - IMMUNIZATION STATUS Childhood Immunizations: See Nurse Assessment Flu Vaccine: See Nurse Assessment - FAMILY HISTORY Family History: reviewed, not pertinent Physical Exam-General - PHYSICAL EXAM-ADULT Initial Vital Signs Reviewed: Yes - CONSTITUTIONAL General Appearance: appears well, alert, no apparent distress - EYES Eyes: PERRL/EOMI, pink conjunctivae - HEAD, EARS, NOSE, MOUTH & THROAT HENMT: normocephalic/atraumatic, moist mucous membranes - NECK Neck: non-tender, full range of motion - RESPIRATORY Respiratory: chest non-tender, lungs clear - CARDIOVASCULAR Cardiovascular: normal peripheral pulses - GASTROINTESTINAL (ABDOMEN) Abdominal Exam: soft, no organomegaly, no pulsatile mass, tenderness (mild) - LYMPHATIC Lymphatic: no adenopathy - MUSCULOSKELETAL Back Exam: normal inspection, no CVA tenderness, no vertebral tenderness - SKIN Integumentary: normal color, normal turgor - NEUROLOGIC Neurologic: grossly normal - PSYCHIATRIC Psych/Mental Status: normal mood/affect, normal thought content Progress - PLAN OF CARE/RESULTS Progress/Plan/Lab Results: Vital Signs - 8 hr 12/02/18 13:48 Temperature 97.5 F L Pulse Rate 97 H Respiratory Rate 16 Blood Pressure 122/84 O2 Sat by Pulse Oximetry 96 - CONSULTS/PCP/HOSPITALIST Notification #1 *Consult/PCP/Hospitalist*: Samantha Time Discussed: 14:32 Consult Disposition: Will see in ED Departure - Departure Date of Disposition Decision: 12/02/18 Time of Disposition Decision: 14:33 DIAGNOSIS: Partial small bowel obstruction, History of colon cancer Disposition: ADMITTED INPATIENT 09 Certified Medical Emergency: Emergent Condition: Stable Referrals and Follow-Ups: Denton Mata [Primary Care Provider] - - Critical Care Note This patient required my direct & personal management of CC.: No Attestation - Physician/ DENIS Attestation Patient care was provided by Advanced Practice Provider:: No The physician spent face to face time with patient:: Yes Advanced Practice Provider documentation review:: Supervising physician onsite and consulted in the evaluation and care of this patient. The physician did have a face to face encounter with the patient.
[2018-12-02] MEDS ORDERED: NS 1,000 ML IV SCH (14:45)
[2018-12-02] MEDS ORDERED: SODIUM CHLORIDE 0.9% INJ SCH (17:15)
--- NOTE | 2018-12-02 17:19 | HISTORY AND PHYSICAL ---
CHIEF COMPLAINT: Abdominal pain, nausea, and vomiting. HISTORY OF PRESENT ILLNESS: This is a 63-year-old female with a history of colon cancer status post total colectomy with ileal rectal anastomosis, chronic pain on chronic narcotics, diabetes mellitus, COPD. She presents to the emergency room complaining of abdominal pain, nausea, and vomiting that started approximately 4 days ago. At the time of my exam, the patient states that she felt like she had a bowel obstruction as she has had these in the past, prompting her. INCOMPLETE REPORT - DICTATION ENDED HERE. Dictated by URI Chan for Jerry Russ MD cc: URI Chan MD
[2018-12-02] MEDS: DULCOLAX PR SCH ×2 (17:30→21:14)
[2018-12-02] MEDS: ROCEPHIN 1 GM in NS 50 ML IV SCH (17:31)
[2018-12-02] MEDS: NS 1,000 ML IV SCH (17:32)
--- NOTE | 2018-12-02 17:44 | HISTORY AND PHYSICAL ---
CHIEF COMPLAINT: Diarrhea, abdominal pain, nausea, vomiting for 7 days. HISTORY OF PRESENT ILLNESS: This is a 63-year-old female with a history of colon cancer status post total colectomy with ileal rectal anastomoses, chronic pain on chronic narcotics, coronary artery disease, diabetes mellitus, COPD. She initially presented to the emergency room on December 01 complaining of 6 or 7 days of watery diarrhea, abdominal pain and she was hurting too bad therefore she opted to go home. She returned at 7:30 in the morning on the was evaluated by emergency room physician, told that she had a partial bowel obstruction. He tried to get her to be admitted. She refused at this time stating that she had a handicapped sister at home that she needed to make sure she had care for. She went home, ate toast and juice, started hurting again, returned to the emergency room at 1:48 asking to be admitted. She denies any black or bloody vomitus or stools. PAST MEDICAL HISTORY: 1. Colon cancer status post total colectomy with ileal rectal anastomoses. 2. Chronic pain on chronic narcotics. 3. Coronary artery disease. 4. Diabetes mellitus. 5. Chronic obstructive pulmonary disease. 6. Hypertension. 7. Fibromyalgia. 8. History of C difficile. PAST SURGICAL HISTORY: 1. Breast biopsy. 2. Hysterectomy. 3. Tubal ligation. 4. Total colectomy with ileal rectal anastomosis. 5. Port insertion and removal. SOCIAL HISTORY: She smokes about a pack a day. Denies alcohol or illicit drug use. She does live with her handicapped sister. FAMILY HISTORY: Positive for mother had high cholesterol, hypertension, chronic kidney disease and a stroke. Her brother had coronary artery disease and kidney disease. Her father had breast cancer. ALLERGIES: Sulfa, azithromycin, Zyrtec and Flonase which cause syncope. HOME MEDICATIONS: List will be obtained by the nursing staff and once verified review and restart as appropriate. REVIEW OF SYSTEMS: Discussed with patient with pertinent positives stated in the HPI. She denied any syncope or dizziness, any chest pain or palpitations, shortness of breath, cough, fever, chills, night sweats, recent weight loss or weight gain, any black or bloody vomitus or stools, hematuria, dysuria, frequency, urgency. PHYSICAL EXAMINATION: GENERAL: This is a 63-year-old female who is sitting up in the bed in no distress. VITAL SIGNS: Blood pressure is 122/84, heart rate of 97, respirations are 18, temperature is 97.5 degrees oral with room air saturations 96%. HEENT: Head is normocephalic, atraumatic. Mucous membranes moist. NECK: Supple. Trachea midline. CARDIOVASCULAR: Regular rate and rhythm. S1, S2 appreciated. She has no lower extremity edema. Calves are nontender bilateral, peripheral pulses palpable x4 extremities. PULMONARY: Breath sounds are clear. No increased work of breathing noted. Chest rises and falls symmetric with respiration. Chest wall is nontender to palpation. GASTROINTESTINAL: Abdomen soft, nondistended, she has got some periumbilical tenderness with bowel sounds in all 4 quadrants. SKIN: Warm and dry. NEUROLOGIC: She is alert, oriented x3. LABS: WBC is 8.4 with hemoglobin 14.7, hematocrit 43.7 and platelets [*]12.6. Sodium 131, potassium 4.3, BUN 16, creatinine 1.1 with a glucose of 202. CT of the abdomen and pelvis reveals slightly dilated small bowel containing bowel feces indicates small bowel dysmotility. There may be a partial obstruction but no evidence of complete obstruction. No significant inflammatory changes and cystitis. Urine culture from 12/01/2018 is growing gram-negative rods. ASSESSMENT AND PLAN: 1. Partial small bowel obstruction. Patient will be NPO. She will be admitted to the medical- surgical floor. We will give IV hydration, use Zofran for nausea. Repeat a KUB in the morning. 2. Diabetes mellitus. Pattern blood glucose with sliding scale insulin. 3. Urinary tract infection currently growing gram-negative rods. Start Rocephin IV and further antibiotics will be culture driven. 4. Chronic narcotic use. Give low-dose morphine and monitor. 5. Nausea, will use Zofran. 6. Diarrhea, Clostridium difficile. Will hold any antidiarrheals until C difficile returns. 7. Hypertension. We will continue home medications as appropriate. 8. For deep vein thrombosis prophylaxis SCDs and GI prophylaxis Protonix. Plan was discussed with Dr. Russ. Further treatments pending hospital course. Dictated by URI Chan for Jerry Russ MD cc: URI Chan MD
--- NOTE | 2018-12-02 17:52 | HISTORY AND PHYSICAL ---
ADDENDUM: I have seen and examined Ms. Whitney who presented to the emergency department today. She came in because of worsening abdominal pain. Ms. Whitney was seen in the ER yesterday. However, she left and came back this morning. She was going to be admitted. However, she says she had a sick sister at home, so she went to take care of her. However, at home she ate some pizza and her pain just became excruciating, associated with vomiting, so she came back. Upon presentation she was evaluated. A CT scan of the abdomen which had already been done this morning did show slightly dilated small bowel containing small bowel feces. That is indicative of some small bowel dysmotility. There may be a partial obstruction, but no evidence of complete obstruction. Ms. Whitney is therefore being admitted for suspicion of partial small bowel obstruction. PHYSICAL EXAMINATION: VITAL SIGNS: Her current vitals have been reviewed. Blood pressure is 122/84, pulse of 97, respirations 16, temperature 97.5 degrees. Physical exam is for the most unremarkable except for the abdomen. ABDOMEN: Has an old midline incision scar. I think there is a small hernia defect in the epigastrium at the surgical scar site. Bowel sounds are present. CHEST: Air entry was slightly bilaterally reduced with scattered faint wheezing and expiration with prolonged expiratory phase of respiration. EXTREMITIES: No pedal edema. LAB: Labs from early this morning have been reviewed which are unremarkable except for mild renal failure with a creatinine of 1.1 and glucose of 202. Patient A1c is actually 5.9 from a couple years ago. ASSESSMENT: 1. Partial small bowel obstruction. 2. Suspected ventral incisional hernia. 3. Synchronous colon cancer status post total colectomy with ileorectostomy. This was done in 2017. 4. History of colon cancer. Patient is status post some but status post surgery, adjuvant therapy. She has been declared cancer-free. Her port has been removed since recently. 5. History of chronic obstructive pulmonary disease with mild bronchospasm. We will treat that with p.r.n. nebulization. cc: Jerry Russ MD
[2018-12-02] MEDS: HUMALOG SUBQ SCH ×2 (18:13→21:15)
[2018-12-02] MEDS: PROTONIX IV SCH (18:45)
[2018-12-02] MEDS: ZOFRAN IV PRN (21:14)
[2018-12-02] MEDS: MORPHINE IV PRN (21:14)
[2018-12-03] MEDS: MORPHINE IV PRN (02:56)
[2018-12-03] MEDS: ZOFRAN IV PRN (02:56)
[2018-12-03] MEDS: DULCOLAX PR SCH ×4 (02:57→20:53)
[2018-12-03] MEDS: NS 1,000 ML IV SCH ×3 (03:01→22:59)
[2018-12-03] MEDS: HUMALOG SUBQ SCH ×4 (06:29→22:59)
--- NOTE | 2018-12-03 08:01 | Diag Imaging Result Doc PS360 ---
KUB ABDOMEN - 12/03/2018 INDICATION: partial SBO COMPARISON: CT from 12/02/2018 FINDINGS: There are several featureless gas-distended loops of bowel centrally which are felt most likely to be small bowel. These measure up to 5 cm. No definite colon or rectal gas. IMPRESSION: Abnormal small bowel gas pattern consistent with small bowel obstruction. Electronically signed by Kiko Flores 12/03/2018 7:59 AM
[2018-12-03 08:05] LABS: AGAP 12; ALBUMIN 3.4 g/dL (3.5-5.0); BUN 11 mg/dL (8-22); CALCIUM 8.7 mg/dL (8.8-10.2); CHLORIDE 105 mmol/L (98-107); COSMO 278; CREATININE 0.8 mg/dL (0.5-0.9); ESTIMATED GFR > 60; GLUCOSE 126 mg/dL (70-104); PHOSPHORUS 2.5 mg/dL (2.7-4.5); POTASSIUM 3.6 mmol/L (3.5-5.1); SODIUM 139 mmol/L (136-145); TCO2 22 mmol/L (25-35)
[2018-12-03] MEDS ORDERED: POTASSIUM PHOSPHATE 40 MEQ in NS 250 ML IV ONE (09:00)
[2018-12-03] MEDS: ROCEPHIN 1 GM in NS 50 ML IV SCH (14:23)
[2018-12-03 14:47] LABS: BASO# 0.04 X1000 (0.0-0.2); BASO% 0.5 % (0.0-0.8); EOS# 0.12 X1000 (0.0-0.7); EOS% 1.5 % (0.0-10.0); HEMATOCRIT 38.7 % (37.0-47.0); HEMOGLOBIN 12.7 g/dL (12.0-16.0); IMM GRAN# 0.02 X1000 (0.0-0.04); IMM GRAN% 0.2 % (0.0-0.5); LYMPH# 3.64 X1000 (1.2-3.4); LYMPH% 44.1 % (20.5-51.1); MCHC 32.8 g/dL (33-37); MCV 91.3 FL (81-99); MONO# 0.81 X1000 (0.11-0.59); MONO% 9.8 % (1.7-9.3); MPV 10.3 FL (7.4-10.4); NEUT# 3.63 X1000 (1.4-6.5); NEUT% 43.9 % (42.2-75.2); PLT 235 X1000 (130-400); RBC 4.24 XMIL (4.2-5.4); RDW 12.8 % (11.5-14.5); WBC 8.26 X1000 (4.8-10.8)
[2018-12-03] MEDS: PROTONIX IV SCH (17:25)
--- NOTE | 2018-12-03 18:27 | GENERAL SURGERY CONSULTATION ---
DATE: 12/03/2018 REQUESTING PHYSICIAN: Dr. Russ. CONSULT REQUEST: Small bowel obstruction. HISTORY OF PRESENT ILLNESS: A 63-year-old female well known to my group who had a total abdominal colectomy secondary to colon cancer. She has previously been treated, and apparently is disease- free. She had a port and had it actually removed recently. She came in with a couple day history of watery diarrhea and abdominal pain. She came to the emergency department, and had a CT scan that showed potential for bowel obstruction, and an abdominal film that showed she has been admitted for bowel obstruction. She is currently having some abdominal pain, but not a terrible amount. I was asked to weigh an opinion. She is still passing gas, and having bowel movements. PAST MEDICAL HISTORY: 1. History of colon cancer. 2. Chronic pain. 3. Coronary artery disease. 4. Diabetes mellitus. 5. COPD. 6. Hypertension. 7. Fibromyalgia. 8. History of C. Diff. PAST SURGICAL HISTORY: Includes best breast biopsy, hysterectomy, tubal ligation, , port insertion and removal. SOCIAL HISTORY: Current smoker. FAMILY HISTORY: Positive for cholesterol, hypertension, chronic kidney disease, and stroke ALLERGIES: Sulfa, azithromycin, Zyrtec and Flonase. HOME MEDICATIONS: Full list reviewed. REVIEW OF SYSTEMS: A full 14 systems reviewed and negative except as specified in HPI. PHYSICAL EXAMINATION: Vital Signs: Patient is currently afebrile. Her vital signs are stable. General: No acute distress. Alert and interactive female who looks her stated age. HEENT: Normocephalic, atraumatic. Pupils equal, round, and reactive to light. Mucous membranes moist. Oropharynx benign. Neck: Supple. Trachea midline. Cardiovascular: Regular rate and rhythm. Lungs: Grossly clear. Abdomen: Soft and nondistended. Really no tenderness to palpation, but no peritoneal signs for sure. Extremities: Moves all extremities. Neurologic: Grossly intact. Skin: No signs of jaundice. Vascular: All extremities perfused. LABORATORY: Reviewed. CT scan independently reviewed. Abdominal film reviewed. ASSESSMENT AND PLAN: A 63-year-old with a bowel obstruction. Bowel obstruction. At this time, likely related to adhesions. We will try to manage her nonoperatively, and see if she can improve. She does not have any peritoneal signs. We do not need an emergent operation. If she does not seem to improve, may need to consider small bowel series. We will follow her clinically and follow with you. I appreciate the consult. cc: Brigido Banda MD
--- NOTE | 2018-12-03 19:08 | PROGRESS NOTE ---
DATE: 12/03/2018 SUBJECTIVE: This morning Ms. Whitney refers to be doing well. Still has some soreness in the epigastrium. The patient denies any vomiting and according to her, she has had a bowel movement, as a matter of 2 documented today. OBJECTIVE: Vital signs: Blood pressure is 134/60, pulse of 76, respirations 16, temperature 98.5 degrees. General: Ms. Whitney is a 63-year-old female. She is in bed. No distress. Mucosa is pink and moist. Anicteric. Acyanotic. Neck: Supple. Chest: Good air entry bilaterally. No crepitations. No rhonchi. Cardiovascular: Regular rate and rhythm. GI: Abdomen is soft. There is an old midline surgical scar. There is a mild hernia defect in the epigastric area at the surgical site. Extremities: No pedal edema. FICTION AND NONFICTION WRITER PROSE: Patient is awake, alert, and oriented. LABORATORY DATA: CBC is completely unremarkable. Chemistry is also within normal range. Phosphorus is slightly low at 2.5 and potassium is low normal at 3.6. A KUB this morning continues to show abnormal small bowel gas pattern consistent with small bowel obstruction. ASSESSMENT: 1. Partial small bowel obstruction. KUB this morning continues to show abnormal pattern. Surgery has been consulted. The patient is not vomiting and does not want the nasogastric tube. We will continue conservative management. 2. Suspected ventral incisional hernia. Surgery is aware. 3. Synchronous colon cancer status post total colectomy with ileorectostomy. This was done [place] [address] Marr. 4. History of colon cancer. Patient is status post surgery, adjuvant therapy. Has been cleared cancer-free. 5. Chronic obstructive pulmonary disease with mild bronchospasm on admission resolved. 6. Electrolytes abnormality (including hypophosphatemia and borderline low normal potassium), will all be replaced. PLAN: In general, Ms. Whitney is making adequate stool. She is still hurting. Surgery recommend to start her on ice chips and re-evaluate her tomorrow morning. If she continues to be symptomatic, the plan is to do a gastrointestinal small bowel series and go from there. cc: Jerry Russ MD [facility] HOSPITALGisella
[2018-12-04] MEDS: DULCOLAX PR SCH ×2 (03:15→09:53)
[2018-12-04] MEDS: NS 1,000 ML IV SCH (05:07)
[2018-12-04] MEDS: HUMALOG SUBQ SCH ×2 (06:36→11:54)
[2018-12-04 07:53] LABS: AGAP 15; ALBUMIN 3.7 g/dL (3.5-5.0); BUN 5 mg/dL (8-22); CALCIUM 8.5 mg/dL (8.8-10.2); CHLORIDE 102 mmol/L (98-107); COSMO 271; CREATININE 0.6 mg/dL (0.5-0.9); ESTIMATED GFR > 60; GLUCOSE 104 mg/dL (70-104); PHOSPHORUS 2.7 mg/dL (2.7-4.5); POTASSIUM 3.5 mmol/L (3.5-5.1); SODIUM 137 mmol/L (136-145); TCO2 20 mmol/L (25-35)
[2018-12-04] MEDS ORDERED: MAGNESIUM SULFATE 2 GM/S.W.I. 2 GM/50 ML IVPB IV ONE (08:05)
--- NOTE | 2018-12-04 08:53 | Diag Imaging Result Doc PS360 ---
KUB ABDOMEN - 12/04/2018 INDICATION: SBO COMPARISON: 12/03/2018 FINDINGS: There are several persistently gas-distended loops of small bowel centrally. These measure up to 3.7 cm. No gastric distention. There has been previous colectomy. IMPRESSION: Persistent mildly dilated small bowel loops, nonspecific. Electronically signed by Kiko Flores 12/04/2018 8:51 AM
--- NOTE | 2018-12-04 10:48 | GENERAL SURGERY PROGRESS NOTE ---
DATE: 12/04/2018 SUBJECTIVE: The patient seems to be doing okay. She is having bowel movements. She is passing gas. She is not hurting. OBJECTIVE: Vital Signs: The patient is currently afebrile. Her vital signs are stable. General Examination: No acute distress. HEENT: Normocephalic, atraumatic. Pupils equal, round, reactive to light. Mucous membranes are moist. Oropharynx is benign. Neck: Supple. Trachea midline. Cardiovascular: Regular rate and rhythm. Lungs: Grossly clear. Abdomen: Soft, nontender, nondistended. Extremities: Moves all extremities. Neurologic: Grossly intact. Skin: No signs of jaundice. Vascular: All extremities perfused. Laboratory: None this morning as of yet. ASSESSMENT AND PLAN: A 63-year-old female with a bowel obstruction. Bowel obstruction. At this time, it seems to be really resolving. We will put her on a clear liquid diet and see how she does. May need to consider a small bowel series but we will continue to follow. cc: Brigido Banda MD
[2018-12-04 12:15] VITALS: BP 177/85
--- NOTE | 2018-12-05 09:36 | DISCHARGE SUMMARY ---
ADMISSION DATE: 12/02/2018 DISCHARGE DATE: 12/04/2018 DISCHARGE DIAGNOSES: 1. Partial small bowel obstruction. 2. Suspected ventral incisional hernia. 3. Synchronous colon cancer status post total colectomy with ileostomy. 4. History of colon cancer. 5. Chronic obstructive pulmonary disease with mild bronchospasm on admission, resolved. 6. Electrolyte abnormality, treated. PROCEDURES PERFORMED: Abdominal x-ray dated 12/03/2018, impression: Abnormal small bowel gas pattern consistent with small bowel obstruction. Abdomen x-ray dated 12/04/2018, impression: Persistent mildly dilated small bowel loops, nonspecific. HOSPITAL COURSE: A 63-year-old female with a past medical history of colon cancer status post total colectomy with ileorectal anastomosis, chronic pain on chronic narcotic therapy, coronary artery disease, diabetes, COPD. Initially she presented to the emergency room on 12/01/2018, presented complaining of 6 or 7 days of watery diarrhea, abdominal pain, but she opted to go home. She returned the next morning on the and was evaluated by the emergency room physician and told her that she had a partial bowel obstruction. They tried to admit this patient, but she states that she had a handicapped sister at home that she needed to make sure that she had care for. She went home and then she came back to the emergency department where she was admitted. The patient was evaluated by Surgery Department due to her bowel obstruction that is likely related to adhesions. They managed the patient nonoperatively. She did not have any peritoneal signs. She does not need any emergent operation. She was placed on suppositories and then she started having multiple bowel movements. Her abdomen was feeling much better, as well as the patient. Today the case has been discussed with the surgeon. She was tolerating liquids. We decided to discharge this patient home. We just instructed the patient to drink only liquids for the next 3 days, continue with MiraLAX and suppositories as needed. PHYSICAL EXAMINATION: Vital signs: Temperature 98 degrees, pulse 98, respiratory rate 20, blood pressure 137/54, oxygen saturation 96 on room air. HEENT: Head normocephalic. No trauma. PERRLA. Neck is supple, no JVD. No masses. Central trachea. Chest: Clear to auscultation. No wheezing. No rales. Abdomen: Soft. Multiple abdominal scars, mostly midline. There is a mild hernia defect in the epigastric area at the surgical site. Positive bowel sounds. Extremities: No edema, no clubbing, no cyanosis. Neurological: The patient is alert. She is oriented x3. No focal deficits. LABORATORY: Sodium 137, potassium 3.5, chloride 102, bicarbonate 20, BUN 5, creatinine 0.6, glucose 104, calcium 8.5. Magnesium 1. Albumin 3.7. Magnesium has been replaced. DISCHARGE MEDICATIONS: Basically she will continue with her home medications, but I will add a stool softener, aripiprazole 1 tablet p.o. daily 5 mg, aspirin 81 mg p.o. daily, Dulcolax 10 mg rectally as needed for constipation, Symbicort 2 puffs inhaler twice a day, buspirone 10 mg p.o. t.i.d., calcium carbonate 600 mg p.o. daily, citalopram 40 mg p.o. daily, diazepam 5 mg p.o. b.i.d., diltiazem 100 mg p.o. daily, Magnolia 10 one tablet p.o. 4 times a day which is chronic, Imdur 30 mg p.o. daily, loperamide 1 capsule p.o. t.i.d. as needed for constipation, Reglan 10 mg p.o. q.6 hours, MiraLAX 17 g p.o. daily, potassium chloride 10 mEq p.o. daily, Lyrica 150 mg p.o. b.i.d., and Phenergan 25 mg p.o. q.6 hours as needed for nausea and vomiting. TIME SPENT: Time discharging this patient around 25 minutes. cc: Edwin Amaya MD
== END 2018-12-04 12:56 | disposition home or self-care (01) | DRG 395 ==
LOC: ED 13:41 → 3N 16:04 → SUATTDRO 16:04
PROVIDERS: ATTEND Internal Medicine

== ENCOUNTER 2019-03-07 11:59 | Inpatient (IN) ==
[2019-03-07] MEDS ORDERED: NS 1,000 ML IV ONE (12:22)
--- NOTE | 2019-03-07 12:37 | EKG Report ---
Test Performed on : 03/07/2019 12:21:25 PM Test Reason : ER Blood Pressure : / mmHG Vent. Rate : 119 BPM Atrial Rate : 119 BPM P-R Int : 142 ms QRS Dur : 086 ms QT Int : 326 ms P-R-T Axes : 047 032 256 degrees QTc Int : 458 ms Sinus tachycardia. with occasional premature ventricular complexes. Possible Inferior infarct (cited on or before 04-MAY-2018) ST & T wave abnormality, consider anterolateral ischemia Abnormal ECG When compared with ECG of 04-MAY-2018 12:26, premature ventricular complexes. are now present T wave inversion more evident in Inferior leads T wave inversion now evident in Anterolateral leads Unconfirmed Result
--- NOTE | 2019-03-07 12:38 | Diag Imaging Result Doc PS360 ---
EXAM: CT HEAD W/O CONTRAST HISTORY: R SIDED NUMBNESS TECHNIQUE: CT head without intravenous contrast COMPARISON: 10/02/2016 FINDINGS: No parenchymal hemorrhage. No epidural or subdural hematoma. No subarachnoid hemorrhage. Mild atrophy. Chronic microvascular ischemic changes. No mass identified on this noncontrasted exam. No hydrocephalus. Right maxillary sinus opacification. IMPRESSION: 1.No hemorrhage 2.Mild atrophy with chronic chronic microvascular ischemic changes 3.Chronic right maxillary sinusitis This exam was performed using automated exposure control, adjustment of mA or kV according to patient size, and/or use of iterative reconstruction technique. Electronically signed by Roly Childers 03/07/2019 12:36 PM
--- NOTE | 2019-03-07 13:10 | Vascular Study Report ---
EXAM: Venous U/S Right Arm 03/07/2019 HISTORY: PULSELESS, FINGERS BLUE TECHNIQUE: Compression venous ultrasound and Doppler flow in the veins of the right upper extremity COMMENT: There is no evidence of deep venous thrombosis or superficial venous thrombosis. There is normal venous flow with augmentation. IMPRESSION: No evidence of deep or superficial venous thrombosis. This examination does not exclude the possibility of arterial disease however. Electronically signed by Alexx Ware 03/07/2019 1:07 PM
--- NOTE | 2019-03-07 14:21 | PROVIDER DOCUMENTATION ---
This chart was entered by Eunice Hightower Scribe, acting as scribe for Kimberly Rey MD. HPI-General Adult - General Chief Complaint: Numbness Stated Complaint: N/V/D/DIZZINESS Time Seen by Provider: 03/07/19 12:15 Source: patient, family (son) Allergies/Adverse Reactions: Patient Allergies Allergy/AdvReac Type Severity Reaction Status Date / Time Sulfa (Sulfonamide Allergy Mild HIVES Verified 03/07/19 14:30 Antibiotics) azithromycin Allergy SYNCOPE Verified 03/07/19 14:30 [From Zithromax Z-Noel] cetirizine HCl * Allergy SYNCOPE Verified 03/07/19 14:30 [From Zyrtec] fluticasone propionate * Allergy SYNCOPE Verified 03/07/19 14:30 [From Flonase] Home Medications: Home Medication List Medication Instructions Recorded Confirmed Last Taken Type Diazepam 5 mg PO BID 06/21/16 12/02/18 11/18/18 21:00 History Promethazine [Phenergan] 25 mg PO Q6H PRN PRN 06/21/16 12/02/18 11/20/18 08:00 History Budesonide/Formoterol Inhaler 2 puff INH RTBID 08/08/16 12/02/18 11/20/18 15:00 History [Symbicort 160/4.5 Microgm Inhaler] Loperamide [Imodium] 1 cap PO TID PRN PRN #60 capsule 08/08/16 12/02/18 11/20/18 20:30 Rx Pregabalin [Lyrica] 150 mg PO BID 09/08/16 12/02/18 11/20/18 07:00 History Aspirin [Adult Low Dose Aspirin EC] 81 mg PO DAILY 09/30/16 12/02/18 11/20/18 07:00 History Hydrocodone/APAP 10 mg/325 mg 1 tab PO 4XDAY 05/05/18 12/02/18 11/20/18 15:00 History [[place]-10] Buspirone [Buspar] 10 mg PO TID 05/06/18 12/02/18 11/20/18 12:00 History Diltiazem HCl [Diltiazem 24Hr ER 180 mg PO DAILY 05/06/18 12/02/18 11/20/18 07:00 History (Xr)] Metoclopramide [Reglan] 10 mg PO Q6HR 05/06/18 12/02/18 11/19/18 20:00 History Calcium Carbonate [Calcium] 600 mg PO DAILY 11/19/18 12/02/18 11/20/18 07:00 History Potassium Chloride 10 meq PO DAILY 11/19/18 12/02/18 11/20/18 07:00 History Aripiprazole 1 tab PO DAILY 12/02/18 12/02/18 Unknown History Citalopram Hydrobromide 1 tab PO DAILY 12/02/18 12/02/18 Unknown History [Citalopram HBr] Isosorbide Mononitrate E.r. [Imdur] 30 mg PO DAILY 12/02/18 12/02/18 Unknown History Bisacodyl [Dulcolax] 10 mg [place] Q6H PRN #20 supp 12/04/18 Unknown Rx Polyethylene Glycol 3350 [Miralax] 17 gm PO DAILY #30 powd.pack 12/04/18 Unknown Rx - History of Present Illness -Gen Adult Nature of Presenting Problems: 63 yowf presents to the ed with cc of abdominal pain with n/v/d 5 days, pt while in triage noted numbness to rt hand and since pt was triage she has cynosis to rt hand, cool to palpation and no radial pulse can be felt. pt has recently had sx due to colon rectal cancer Location of Pain/Injury: reports: abdomen (generalized) Quality of Pain: reports: cramping Severity: reports: mild Onset/Duration: reports: 5 days ago Timing: reports: still present, intermittent Context/Activities at Onset: reports: light activity Modifying Factors: improves with: nothing. worse with: eating Associated Symptoms: reports: diarrhea, nausea, vomiting, other (rt hand with numbness). denies: back/neck pain, chest pain, cough, fever/chills, shortness of breath Similar Symptoms Previously?: Yes Recently seen or treated by another doctor?: Yes (recent had colon rectal sx) Review of Systems - Adult - REVIEW OF SYSTEMS - ADULT Constitutional: denies: chills, fever Eyes: reports: no symptoms reported Ears, Nose, Mouth & Throat: reports: no symptoms reported Cardiovascular: denies: chest pain, palpitations Respiratory: denies: shortness of breath, wheezing Gastrointestinal: reports: see HPI, abdominal pain, diarrhea, nausea, vomiting Genitourinary: reports: no symptoms reported Musculoskeletal: reports: see HPI, other (rt hand numbness) Integumentary: reports: see HPI, other (cynosis of rt hand) Neurological: reports: see HPI, numbness. denies: dizziness/vertigo, headache/migraines Psychiatric: reports: no symptoms reported Endocrine: reports: no symptoms reported Hematologic/Lymphatic: reports: no symptoms reported Allergic/Immunologic: reports: no symptoms reported All Other Systems: Reviewed and Negative Past History - Adult - PAST MEDICAL HISTORY-ADULT Review of Records: reports: Old Records Reviewed, Nursing Assessment Review, Medications Reviewed, Social history reviewed & non-contributory. Major Childhood Illnesses: reports: denies history Cardiovascular: reports: cardiac disease, CAD, HTN Respiratory: reports: asthma, COPD Gastrointestinal: reports: cancer (colon/rectal) Obstetrical/Gynecological: reports: denies history Genitourinary: reports: denies history Musculoskeletal: reports: chronic pain, fibromyalgia Neurological: reports: other (hx of syncope) Psychiatric: reports: anxiety Endocrine/Immune: reports: Diabetes Other Conditions: reports: denies history - PRIOR SURGERIES/PROCEDURES Surgical/Procedure History: reports: recent surgery (colon resection), colonoscopy, cardiac stent, BTL, tonsillectomy, other (total colon resection) - IMMUNIZATION STATUS Childhood Immunizations: See Nurse Assessment Flu Vaccine: See Nurse Assessment - FAMILY HISTORY Family History: reviewed, not pertinent - SOCIAL HISTORY Smoking: cigarettes, less than 1 pack/day Provider spent 3-5 mins advising pt. on dangers of tobacco.: Discussed manners to quit use, and f/u contacts for add'l counseling. Substance Use: denies Alcohol Use Frequency: never Living Situation: family Physical Exam-General - PHYSICAL EXAM-ADULT Initial Vital Signs Reviewed: Yes - CONSTITUTIONAL General Appearance: alert, no apparent distress - EYES Eyes: PERRL/EOMI, pink conjunctivae - HEAD, EARS, NOSE, MOUTH & THROAT HENMT: moist mucous membranes - NECK Neck: non-tender, full range of motion, normal inspection - RESPIRATORY Respiratory: chest non-tender, lungs clear, normal breath sounds - CARDIOVASCULAR Cardiovascular: tachycardia (119). negative: normal peripheral pulses (no radial pulse felt on RUE) - CHEST (BREASTS) Chest/Breast: deferred - GASTROINTESTINAL (ABDOMEN) Abdominal Exam: normal bowel sounds, non tender, soft, other (c/o nausea). negative: guarding, rigid, rebound - GENITOURINARY Female Genitalia/Pelvic Exam: deferred Rectal Exam: deferred Hemoccult Exam: deferred - LYMPHATIC Lymphatic: no adenopathy - MUSCULOSKELETAL Back Exam: normal inspection, no CVA tenderness, no vertebral tenderness Extremity: normal gait, pelvis stable, pulse deficit (rt radial pulse not present on exam), other (cynosis of rt hand and cool to palpation). negative: normal capillary refill (rt digit) - SKIN Integumentary: cyanosis (rt hand) - NEUROLOGIC Neurologic: grossly normal - PSYCHIATRIC Psych/Mental Status: normal mood/affect, normal thought content, normal thought process, oriented x 3 Progress - PLAN OF CARE/RESULTS Progress/Plan/Lab Results: Vital Signs - 8 hr 03/07/19 12:08 Temperature 98 F Pulse Rate 119 H Respiratory Rate 19 Blood Pressure 109/83 O2 Sat by Pulse Oximetry 96 Orders Category Date Time Status CT HEAD W/O CONTRAST [CT] Stat Exams 03/07/19 12:15 Ordered CBC WITH ELECTRONIC DIFF [HEME] Stat Lab 03/07/19 12:15 Uncollected COMPREHENSIVE METABOLIC PANEL [CHEM] Stat Lab 03/07/19 12:15 Uncollected Ns 1000 ml IV Bolus X1 Med 03/07/19 12:22 Ordered 0.9% Sodium Chloride Inj [Ns] 1,000 ml IV 999 mls/hr Venous U/S Right Arm Stat Ther 03/07/19 12:19 Ordered Result Diagrams: 03/07/19 14:30 03/07/19 14:30 - REASSESSMENT Reassessment #1 Time Reassessed: 13:09 Status: unchanged (dr rey at bedside) Reassessment #2 Time Reassessed: 13:50 Status: unchanged (pt has no ulnar flow us tech speaking with dr rey) - EKG 1 Time of EKG reading by physician:: 12:21 EKG Read and Signed by:: Kimberly Rey EKG Interpretation (*Must complete 3 of following elements*): Abnormal Rate: 119 Rhythm: sinus tachycardia w/ occ pvc [place]: normal QRS: PVC's NH Interval: normal Comments: st and t wave abnormality, consider anterolateral ischemia - CT/MRI 1 CT Study: Head Impression: See EMR Report (EXAM: CT HEAD W/O CONTRAST HISTORY: R SIDED NUMBNESS TECHNIQUE: CT head without intravenous contrast COMPARISON: 10/02/2016 FINDINGS: No parenchymal hemorrhage. No epidural or subdural hematoma. No subarachnoid hemorrhage. Mild atrophy. Chronic microvascular ischemic changes. No mass identified on this noncontrasted exam. No hydrocephalus. Right maxillary sinus opacification. IMPRESSION: 1.No hemorrhage 2.Mild atrophy with chronic chronic microvascular ischemic changes 3.Chronic right maxillary sinusitis This exam was performed using automated exposure control, adjustment of mA or kV according to patient size, and/or use of iterative reconstruction technique. Electronically signed by Roly Childers 03/07/2019 12:36 PM 03/07/19 1236 Interpreting Physician: Roly Childers MD Dictated Date/Time: 03/07/19 1233 cc: Kendra Marr; Denton Mata) - ULTRASOUND (By Radiology) 1 US Study: other (Patient: KYARA RUGGIERODM Date: 03/07/19MR#: [id number] : 6At#: [id number] Family Physician: Denton Mata EXAM: Venous U/S Right Arm 03/07/2019 HISTORY: PULSELESS, FINGERS BLUE TECHNIQUE: Compression venous ultrasound and Doppler flow in the veins of the right upper extremity COMMENT: There is no evidence of deep venous thrombosis or superficial venous thrombosis. There is normal venous flow with augmentation. IMPRESSION: No evidence of deep or superficial venous thrombosis. This examination does not exclude the possibility of arterial disease however. Electronically signed by Alexx Ware 03/07/2019 1:07 PM 03/07/19 1307 Interpreting Physician: Alexx Ware MD Dictated Date/Time: 03/07/19 1305 cc: Kendra Marr; Denton Mata) - CONSULTS/PCP/HOSPITALIST Notification #1 *Consult/PCP/Hospitalist*: dr ernesto renaex Time Discussed: 14:47 Reason/Comments: phone consult Consult Disposition: F/U in office (DR Hightower stated that she can be follow up in his office, stop smoking and taking aspirin daily) #2 Consult: hospitalist dr najera Time Discussed: 14:25 Consult Disposition: Will see in ED, Admit Departure - Departure Date of Disposition Decision: 03/07/19 Time of Disposition Decision: 14:21 DIAGNOSIS: Peripheral arterial disease, Dehydration Acute renal failure Qualifiers: Acute renal failure type: unspecified Qualified Code(s): N17.9 - Acute kidney failure, unspecified Disposition: ADMITTED INPATIENT 09 Certified Medical Emergency: Emergent Condition: Good Referrals and Follow-Ups: Denton Mata [Primary Care Provider] - Discharge Education: Steps to Quit Smoking, [id number] - Critical Care Note This patient required my direct & personal management of CC.: Yes Total Time (mins): 32 Critical Care Statement: This patient required my direct personal management to treat or rule out processes, the absence of which, could potentiallly result in sudden, clinically significant life or limb threatening deterioration. Attestation - Physician/ DENIS Attestation Patient care was provided by Advanced Practice Provider:: No The physician spent face to face time with patient:: Yes Advanced Practice Provider documentation review:: Supervising physician onsite and consulted in the evaluation and care of this patient. The physician did have a face to face encounter with the patient. This chart was documented by the indicated scribe, (Eunice Hightower Scribe) and accurately reflects the services I performed and decisions made by me, Kimberly Rey MD, as attested by the provider's signature.
[2019-03-07 14:54] LABS: BASO# 0.02 X1000 (0.0-0.2); BASO% 0.1 % (0.0-0.8); EOS# 0.01 X1000 (0.0-0.7); EOS% 0.1 % (0.0-10.0); HEMATOCRIT 46.9 % (37.0-47.0); HEMOGLOBIN 15.7 g/dL (12.0-16.0); IMM GRAN# 0.04 X1000 (0.0-0.04); IMM GRAN% 0.2 % (0.0-0.5); LYMPH# 2.46 X1000 (1.2-3.4); LYMPH% 14.8 % (20.5-51.1); MCH 27.7 PG (27-31); MCHC 33.5 g/dL (33-37); MCV 82.7 FL (81-99); MONO# 0.96 X1000 (0.11-0.59); MONO% 5.8 % (1.7-9.3); MPV 10.9 FL (7.4-10.4); NEUT# 13.15 X1000 (1.4-6.5); PLT 263 X1000 (130-400); RBC 5.67 XMIL (4.2-5.4); RDW 13.7 % (11.5-14.5); WBC 16.64 X1000 (4.8-10.8)
[2019-03-07] MEDS ORDERED: ASPIRIN PO ONE (14:54)
[2019-03-07 15:10] LABS: ALBUMIN 5.2 g/dL (3.5-5.0); CALCIUM 10.7 mg/dL (8.8-10.2); POTASSIUM 5.4 mmol/L (3.5-5.1); TOTAL BILIRUBIN 0.4 mg/dL (0.20-1.00); TOTAL PROTEIN 9.8 g/dL (6.3-8.3)
[2019-03-07] MEDS ORDERED: TYLENOL PO PRN (17:20)
[2019-03-07] MEDS ORDERED: ZOFRAN IV PRN (17:20)
[2019-03-07] MEDS ORDERED: SODIUM CHLORIDE 0.9% INJ SCH (17:45)
[2019-03-07] MEDS ORDERED: PROTONIX IV SCH (18:00)
[2019-03-07] MEDS ORDERED: DULCOLAX PR PRN (18:14)
[2019-03-07] MEDS ORDERED: IMODIUM PO PRN (18:14)
[2019-03-07] MEDS ORDERED: PHENERGAN PO PRN (18:14)
[2019-03-07] MEDS: NS 1,000 ML IV SCH (18:20)
[2019-03-07 19:08] LABS: URINE SOURCE CATH
[2019-03-07 19:11] LABS: BILIRUBIN URINE NEGATIVE (NEGATIVE); BLOOD URINE NEGATIVE (NEGATIVE); COLOR YELLOW; GLUCOSE URINE NEGATIVE (NEGATIVE); KETONE URINE NEGATIVE (NEGATIVE); LEUKOCYTES URINE NEGATIVE (NEGATIVE); NITRITE URINE NEGATIVE (NEGATIVE); PH URINE 5.5; PROTEIN URINE NEGATIVE (NEGATIVE); SP GRAVITY URINE 1.009; TURBIDITY URINE CLEAR (CLEAR); UROBILINOGEN URINE NORMAL (NORMAL)
[2019-03-07 19:12] LABS: UR EPITHELIAL CELLS <10 /HPF (<10); URINE BACTERIA NEGATIVE /HPF; URINE RBC <10 /HPF (<10); URINE WBC <10 /HPF (<10)
[2019-03-07 20:15] LABS: CALCIUM 9.6 mg/dL (8.8-10.2); CREATININE 1.5 mg/dL (0.5-0.9); POTASSIUM 5.6 mmol/L (3.5-5.1)
--- NOTE | 2019-03-07 22:49 | HISTORY AND PHYSICAL ---
CHIEF COMPLAINT: Nausea, vomiting, diarrhea, dizziness with frequent falls as well as right hand pain. HISTORY OF PRESENT ILLNESS: This is a 63-year-old female with a prior history of colon and rectal cancer, chronic pain on chronic narcotics, diabetes mellitus, COPD, and a history of recurrent C difficile. She presents to the emergency room complaining of 3 days of nausea, vomiting, and diarrhea along with dizziness and falls over the last 48 hours. She is complaining of 5 days of abdominal pain with nausea, vomiting, and diarrhea. Over the last 3 days she reports being dizzy when she stands and she has had quite a few falls due to this. She denied any fevers or chills. She does have chronic diarrhea secondary to a colectomy for colon cancer although she states that this is different. Her normal stools normally she does have some stool mixed. She said these the last 3 days she has had just clear, it feels like clear water. She also in triage complained of right hand numbness. She stated she noticed that her hand was turning blue and getting cold and feeling numb after coming to the emergency room while she was being triaged. A venous ultrasound right arm revealed no evidence of superficial thrombosis or deep thrombosis with normal venous flow with augmentation. PAST MEDICAL HISTORY: 1. Colon cancer status post total colectomy with ileal rectal anastomosis. 2. Chronic pain on chronic narcotics. 3. Coronary artery disease. 4. Diabetes mellitus. 5. Chronic obstructive pulmonary disease. 6. Hypertension. 7. Fibromyalgia. 8. History of recurrent C difficile. PAST SURGICAL HISTORY: 1. Breast biopsy. 2. Hysterectomy. 3. Tubal ligation. 4. Total colectomy with ileal reanastomosis. 5. Port insertion and removal. SOCIAL HISTORY: She smokes about a pack to a pack and a half a day. Denies alcohol or illicit drug use. 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 FAMILY HISTORY: Mother had high cholesterol, hypertension, chronic kidney disease and a stroke. Brother had coronary artery disease and kidney disease. Her father had breast cancer. ALLERGIES: Sulfa, Zithromax, Zyrtec, Flonase, all which cause syncope. HOME MEDICATIONS: A list will be obtained by the nursing staff. Once verified and reviewed will restart as appropriate. REVIEW OF SYSTEMS: Discussed with patient with pertinent positives stated in the HPI. She denied any syncope, any chest pain or palpitations, shortness of breath, cough, fever, chills, recent weight loss or weight gain, any black or bloody vomitus or stools, any hematuria, dysuria, frequency, urgency. PHYSICAL EXAMINATION: GENERAL: This is a 63-year-old female who is lying on the stretcher in the emergency room in no distress. VITAL SIGNS: Blood pressure is 131/84 with a heart rate of 90, respirations 18, temperature is 97.9 degrees with room air saturations 95% to 98%. EYES: Pupils are equal, round, react to light. EOMs are intact. Sclerae are anicteric. HENT: Head is normocephalic, atraumatic. Mucous membranes are dry. NECK: Supple with trachea midline. CARDIOVASCULAR: Regular rate and rhythm. S1 and S2 appreciated. Calves are nontender bilateral with peripheral pulses palpable x4. EXTREMITIES: Right arm and hand are warm. She has good pain, movement and sensation. Radial and ulna pulses are palpable. PULMONARY: Breath sounds are clear with no increased work of breathing noted. Chest rises and falls symmetric with respiration. GASTROINTESTINAL: Abdomen is soft, nontender, nondistended with bowel sounds in all 4 quadrants. SKIN: Warm and dry. NEUROLOGIC: She is alert and oriented x3. LABORATORIES: 1. WBC is 16.6 with hemoglobin 15.7, hematocrit 46.9, platelets of 263,000. Sodium is 127, potassium 5.4, BUN 38, creatinine 2 with a glucose of 197. 2. CT of the head revealed no hemorrhage, mild atrophy with chronic microvascular ischemic changes. 3. Right arm venous Doppler revealed no evidence of deep or superficial venous thrombosis. This exam does not exclude the possibility of arterial disease, however. ASSESSMENT: 1. Acute kidney injury secondary to intravascular volume depletion. 2. Intravascular volume depletion due to nausea, vomiting, and diarrhea. 3. Nausea, vomiting, and diarrhea. 4. Leukocytosis. 5. Hyponatremia. 6. Hyperkalemia. 7. History diabetes mellitus. 8. History of hypertension. 9. Possible peripheral artery disease. Dr. Guerrero did call Dr. Hightower. They discussed the case. Dr. Hightower stated that the patient should stop smoking, take aspirin daily and follow up in his office. 1. Frequent falls very likely secondary to orthostasis secondary to dehydration. PLAN: 1. The patient will be admitted to the hospital. She will be placed on telemetry. We will continue with IV hydration, checking strict I O. We will place a Schwartz catheter. Check a urine culture as she has had frequent urinary tract infections. We will get orthostatic vital signs q.12 hours. Clear liquid diet as tolerated. Check a CBC, CMP, and magnesium in the morning. We will get a C difficile toxin as she has had recurrent C difficile in the last 2 to 3 years. She will be placed on pattern blood glucose with sliding scale insulin, giving Protonix daily. We will continue her aspirin daily. We will order neurovascular checks to her right arm every 4 hours. We will continue her Valium to avoid withdrawal. We will identify the rest of her home medications and continue these as appropriate. 2. The patient states that she has had multiple falls over the last 3 to 4 days. We will consult Physical Therapy. Consult Clinical Document Improvement Educator for discharge planning. The patient was examined and plan was discussed with Dr. Rae. Further treatments pending hospital course. Dictated by URI Chan for Edd Rae MD cc: URI Chan MD
--- NOTE | 2019-03-07 23:00 | HISTORY AND PHYSICAL ---
CHIEF COMPLAINT: Numbness right finger as well as dizziness. HISTORY OF PRESENT ILLNESS: Patient is a 63-year-old female who presented to the emergency department with abdominal pain, nausea, vomiting for the past 5 days. States that she has not been drinking well. She has been dizzy. After being triaged she noted that her right hand has been numb and felt as though her 4th digit had become black over the last few days. ALLERGIES: Sulfa causing hives, azithromycin causing syncope, Zyrtec causing syncope and Flonase causing syncope. MEDICATIONS: Diazepam 5 b.i.d., Phenergan 25, Symbicort, Lyrica 150 b.i.d., aspirin, hydrocodone 4 times a day, BuSpar 10 t.i.d., Reglan, Celexa, Imdur. REVIEW OF SYSTEMS: As noted above. Positive abdominal pain, nausea, vomiting. Denies any hematemesis, hematochezia, melena. Denies headaches, blurred vision, change in vision. Denies any focalized weakness. Does states that her right hand has felt cold. Her fingertips have felt dusky and have hurt at times. Denies any problems in her left hand or both feet. Denies swelling in lower extremities. Denies dysuria, urinary frequency, urgency, hesitancy. Denies polyuria or polydipsia. PAST MEDICAL HISTORY: Significant for coronary artery disease, hypertension, COPD, colon cancer, fibromyalgia, chronic pain, history of recurrent syncope, chronic anxiety, depression, diabetes. PAST SURGICAL HISTORY: Colon resection, colonoscopy, cardiac stenting, BTL, tonsillectomy. FAMILY HISTORY: Noncontributory. SOCIAL HISTORY: Patient continues to smoke approximately a pack a day. Does not drink or use other illicit substances. PHYSICAL EXAMINATION: VITAL SIGNS: Reviewed. Temperature 98 degrees, pulse 119, respiratory 19, BP 109/83, saturation 96% on room air. GENERAL: Patient is awake, alert. She is in no current respiratory distress. She is quite pleasant to talk to. HEENT: Normocephalic. NECK: Supple. CARDIOVASCULAR: Tachycardia, regular rhythm. CHEST: Clear, nonlabored. No wheezing. ABDOMEN: Soft, nondistended, nontender. Positive bowel sounds. EXTREMITIES: Moves all extremities. She does have a decreased right radial pulse with apparent cyanosis of her right hand and some dusky fingertips on her 2nd, 3rd, and 4th digits. Hand is cool to touch but not cold. It is slightly cooler than her left hand. NEUROLOGIC: No focal changes. She is awake, alert, oriented x3. ASSESSMENT: 1. Hyponatremia 127. 2. Hyperkalemia, 5.4. 3. Acute renal disease with a creatinine of 2.0. 4. Diabetes with hyperglycemia. 5. Poor blood flow right hand with a relatively normal venous ultrasound. 6. Dehydration. PLAN: We are going to admit patient to the hospital, place her on IV fluids due to her dehydration. We are going to restart her home medications once they are verified. Dr. Hightower has been consulted regarding her arterial flow and we will follow. cc: Edd Rae MD
[2019-03-07] MEDS: HUMALOG (PARKWAY) SUBQ SCH (23:08)
[2019-03-07] MEDS: LYRICA PO SCH (23:43)
[2019-03-07] MEDS: NORCO-10 PO SCH (23:43)
[2019-03-07] MEDS: REGLAN PO SCH (23:43)
[2019-03-07] MEDS: VALIUM PO SCH (23:43)
[2019-03-08] MEDS: NS 1,000 ML IV SCH (02:10)
[2019-03-08] MEDS: REGLAN PO SCH ×2 (06:29→09:02)
[2019-03-08] MEDS: HUMALOG (PARKWAY) SUBQ SCH (06:30)
[2019-03-08 06:31] LABS: BASO# 0.03 X1000 (0.0-0.2); BASO% 0.3 % (0.0-0.8); EOS# 0.07 X1000 (0.0-0.7); EOS% 0.8 % (0.0-10.0); HEMATOCRIT 41.3 % (37.0-47.0); HEMOGLOBIN 13.2 g/dL (12.0-16.0); IMM GRAN# 0.02 X1000 (0.0-0.04); IMM GRAN% 0.2 % (0.0-0.5); LYMPH% 29.8 % (20.5-51.1); MCH 27.2 PG (27-31); MCV 85.2 FL (81-99); MONO# 0.97 X1000 (0.11-0.59); MONO% 10.7 % (1.7-9.3); MPV 10.3 FL (7.4-10.4); NEUT# 5.26 X1000 (1.4-6.5); NEUT% 58.2 % (42.2-75.2); PLT 196 X1000 (130-400); RBC 4.85 XMIL (4.2-5.4); RDW 14.1 % (11.5-14.5); WBC 9.05 X1000 (4.8-10.8)
[2019-03-08 06:56] LABS: ALBUMIN 3.8 g/dL (3.5-5.0); CALCIUM 8.9 mg/dL (8.8-10.2); MAGNESIUM 1.6 mg/dL (1.5-2.7); POTASSIUM 4.1 mmol/L (3.5-5.1); TOTAL BILIRUBIN 0.3 mg/dL (0.20-1.00); TOTAL PROTEIN 7.2 g/dL (6.3-8.3)
[2019-03-08] MEDS ORDERED: SYMBICORT 160/4.5 MICROGM INHALER INH SCH (07:30)
[2019-03-08 08:19] VITALS: BP 98/50
[2019-03-08] MEDS ORDERED: CALTRATE 600 PO SCH (09:00)
[2019-03-08] MEDS ORDERED: CELEXA PO SCH (09:00)
[2019-03-08] MEDS ORDERED: CARDIZEM CD PO SCH ×2 (09:00)
[2019-03-08] MEDS ORDERED: IMDUR PO SCH (09:00)
[2019-03-08] MEDS ORDERED: ABILIFY PO SCH (09:00)
[2019-03-08] MEDS ORDERED: MIRALAX PO SCH (09:00)
[2019-03-08] MEDS ORDERED: ASPIRIN EC PO SCH (09:00)
[2019-03-08] MEDS ORDERED: BUSPAR PO SCH (09:00)
[2019-03-08] MEDS ORDERED: KLOR-CON PO SCH (09:00)
[2019-03-08] MEDS: LYRICA PO SCH (09:01)
[2019-03-08] MEDS: NORCO-10 PO SCH (09:02)
[2019-03-08] MEDS: VALIUM PO SCH (09:02)
--- NOTE | 2019-03-09 05:08 | DISCHARGE SUMMARY ---
ADMISSION DATE: 03/07/2019 DISCHARGE DATE: 03/08/2019 Patient seen and examined by myself. Full note dictated and discussed with nurse practitioner. On discharge, patient is awake, alert. She is very pleasant. Her dusky fingers have improved. In fact, they are back to normal compared to her other fingers. Her creatinine that she was admitted with an acute volume depletion at 2.0, currently is down to 1.0. Potassium is back to normal. Sodium at 125 is back to normal. White count at 12 is back to normal at 9. Given that she is eating and drinking, she is feeling better, we are going to allow her to discharge home. Did discuss with her that she needs to follow up in a week and have her labs rechecked. Please see full orders. cc: Edd Rae MD
--- NOTE | 2019-03-09 18:48 | DISCHARGE SUMMARY ---
ADMISSION DATE: 03/07/2019 DISCHARGE DATE: 03/08/2019 DIAGNOSES: 1. Acute kidney injury secondary to intravascular volume depletion. Resolved. 2. Intravascular volume depletion due to nausea, vomiting, diarrhea. Resolved. 3. Nausea, vomiting, diarrhea. Resolved. 4. Leukocytosis. Resolved. 5. Hyponatremia, hyperkalemia. Resolved. 6. History of diabetes mellitus. 7. Hypertension. 8. Possible peripheral artery disease. 9. Frequent falls. DIAGNOSTICS: 1. CT of the head revealed no hemorrhage. Mild atrophy with chronic microvascular ischemic changes. 2. Extremity venous study of right arm revealed no evidence of deep or superficial venous thrombosis. 3. Microbiology: Urine culture revealed no growth. HOSPITAL COURSE: Ms. Whitney presented to the emergency room complaining of nausea, vomiting, diarrhea, dizziness, falls, and right hand pain. Venous Doppler to her right arm was negative. The pain resolved shortly after coming to the emergency room and has not recurred. Nausea and vomiting resolved. She tolerated a regular diet with no abdominal pain. No nausea or vomiting today. We trended electrolytes, repleted as appropriate. Clostridium difficile toxin was negative. She was hyponatremic with a sodium of 127. She was given hydration and today her sodium is 136. Blood sugar stayed in the 103 to 190 range. DISCHARGE VITAL SIGNS: Blood pressure is 92/76, with a heart rate of 81. Respirations are 18. DISCHARGE PHYSICAL EXAMINATION: Cardiovascular: Regular rate and rhythm. S1 and S2 appreciated. Pulmonary: Breath sounds are clear with no increased work of breathing noted. Chest rises and falls symmetric to respiration. Gastrointestinal: Abdomen is soft, nontender, nondistended with bowel sounds in all 4 quadrants. Neurologic: She is alert and oriented x3. Skin: Warm and dry. The patient stated that she had been falling during this episode of nausea and vomiting. We did order Physical Therapy to evaluate her. When Physical Therapy attempted, the patient refused, stating that she had no trouble walking and did not need physical therapy. DISCHARGE MEDICATIONS: 1. Reglan 10 mg p.o. q.6 hours. 2. Aspirin 81 mg p.o. daily. 3. Aripiprazole 5 mg p.o. daily. 4. BuSpar 10 mg p.o. t.i.d. 5. Calcium 600 p.o. daily. 6. Celexa 40 mg p.o. daily. 7. Valium 5 mg p.o. b.i.d. 8. Cardizem 180 p.o. daily. 9. Isosorbide mononitrate 30 mg p.o. daily. 10. Lyrica 150 mg p.o. daily. 11. Potassium chloride 10 mEq p.o. daily. FOLLOWUP: Dr. Denton Mata, her primary care provider. She needs to call Monday to schedule an appointment to be seen in the next 1 to 2 weeks. She has been instructed to call to be seen sooner or return to the ER for any syncope, dizziness, chest pain, palpitations, recurring nausea, vomiting, diarrhea, constipation, any black or bloody vomitus or stools, any hematuria, dysuria, frequency, urgency, or for any questions or concerns that she may have. DISPOSITION: She is being discharged home in stable condition with family members. TIME: Greater than 30 minute discharge. Dictated by URI Chan for Edd Rae MD cc: URI Chan MD
--- NOTE | 2019-03-12 20:44 | VASCULAR LAB ---
PROCEDURE NAME: Arterial Bilateral Arms - 03/07/2019 REFERRING PHYSICIAN: Kimberly Guerrero from the [facility] Emergency Department. IDENTIFICATION: The patient is 63 years old, a smoker, and she has dis-colorization involving her right index finger, also it was difficult to feel her right radial pulse. FINDINGS: The systolic brachial blood pressure on the right is 98 mmHg, on the left 144 mmHg. The right radial artery is 103 mmHg. The right index finger is 23 mmHg. The left radial artery is 133 mmHg. The left ulnar artery 131 mmHg. The left index finger is 91. There are diminished pulse waveforms throughout the right upper extremity. There are no pulse waveforms involving the right index finger. The pulse waveforms involving the left upper extremity appear more normal. INTERPRETATION: The right brachial blood pressure is significantly less than the left brachial blood pressure. There is diminished pulsatile flow involving the right upper extremity along its length consistent with a right subclavian stenosis or occlusion. There are better pulse waveforms involving the left upper extremity with normal flow to the wrist and left index finger. cc: Radha Hightower MD
== END 2019-03-08 12:35 | disposition home or self-care (01) | DRG 683 ==
LOC: P.ED 11:59 → P.MEDSURG 20:21
PROVIDERS: ATTEND Family Medicine